=== PATIENT | male | born 1975 | race Caucasian/White ===

== ENCOUNTER 2017-11-21 00:42 | Emergency (ER) | payer OTHER ==
[2017-11-21 03:48] LABS: ADD MAN DIFF? NO
[2017-11-21] MEDS: SOD CHLORIDE 0.9% 1,000 ML IV (04:06)
[2017-11-21] MEDS: INSULIN LISPRO 100 UNIT/ML VIAL SC (04:07)
[2017-11-21 04:17] LABS: BASOPHIL # 0.1 10^3/ul (0.0-0.1); BASOPHILS % 0.6 % (0.0-2.0); EOSINOPHILS # 0.1 10^3/ul (0.0-0.5); EOSINOPHILS % 0.9 % (0.0-7.0); HEMATOCRIT 40.5 % (42.0-52.0); HEMOGLOBIN 13.2 g/dl (14.0-18.0); LYMPHOCYTES # 1.2 10^3/ul (0.8-2.9); LYMPHOCYTES % 14.7 % (15.0-51.0); MEAN CORPUSCULAR HEMOGLOBIN 25.9 pg (29.0-33.0); MEAN CORPUSCULAR HGB CONC 32.6 g/dl (32.0-37.0); MEAN CORPUSCULAR VOLUME 79.6 fl (82.0-101.0); MEAN PLATELET VOLUME 9.4 fl (7.4-10.4); MONOCYTE # 0.8 10^3/ul (0.3-0.9); NEUTROPHIL # 5.9 10^3/ul (1.6-7.5); NEUTROPHILS % 73.4 % (39.0-77.0); PLATELET COUNT 273 10^3/UL (140-415); RED BLOOD COUNT 5.09 10^6/ul (4.70-6.10)
[2017-11-21 04:19] LABS: LACTIC ACID 1.1 mmol/L (0.5-2.0)
[2017-11-21 04:20] LABS: ALANINE AMINOTRANSFERASE 28 IU/L (13-69); ALBUMIN 3.6 g/dl (3.3-4.9); ALBUMIN/GLOBULIN RATIO 1.12; ALKALINE PHOSPHATASE 124 IU/L (42-121); ANION GAP 14 (8-16); ASPARTATE AMINO TRANSFERASE 14 IU/L (15-46); BILIRUBIN,INDIRECT 0.3 mg/dl (0-1.1); BILIRUBIN,TOTAL 0.3 mg/dl (0.2-1.3); BLOOD UREA NITROGEN 18 mg/dl (7-20); CALCIUM 8.8 mg/dl (8.4-10.2); CARBON DIOXIDE 27 mmol/L (21-31); CHLORIDE 101 mmol/L (97-110); CREATININE 0.84 mg/dl (0.61-1.24); GLUCOSE 208 mg/dl (70-220); POTASSIUM 4.4 mmol/L (3.5-5.1); SODIUM 138 mmol/L (135-144); TOTAL PROTEIN 6.8 g/dl (6.1-8.1)
[2017-11-21 06:27] LABS: LACTIC ACID 0.6 mmol/L (0.5-2.0)
== END 2017-11-21 05:49 | disposition home or self-care (01) ==
LOC: E/R 05:49
DX: E11.65 Type 2 diabetes mellitus with hyperglycemia (principal); Z79.4 Long term (current) use of insulin
CPT/HCPCS: 36415; 80053; 82962; 83605; 85025; 99284-25

== ENCOUNTER 2017-11-22 16:00 | Inpatient (IN) | payer OTHER ==
[2017-11-22] MEDS ORDERED: DIPHENHYDRAMINE 50 MG INJ IV ×2 (17:30)
[2017-11-22] MEDS ORDERED: VANCOMYCIN IV PER PHARMACY XX ×2 (17:30)
[2017-11-22] MEDS ORDERED: HYDROCODONE/APAP (5/325) TAB PO ×4 (17:30)
[2017-11-22] MEDS ORDERED: IBUPROFEN 600 MG TAB PO ×2 (17:30)
[2017-11-22] MEDS ORDERED: INSULIN ASPART [NOVOLOG] 3 ML PEN SC ×2 (17:30)
[2017-11-22] MEDS ORDERED: ACCU-CHEK XX ×4 (17:30)
[2017-11-22] MEDS ORDERED: CIPROFLOXACIN 500 MG TAB PO ×2 (18:00)
[2017-11-22] MEDS ORDERED: CLINDAMYCIN 900 MG/D5W (PMX) 50 ML IVPB ×2 (18:00)
[2017-11-22] MEDS ORDERED: GLUCOSE GEL 15 GRAM TUBE PO ×4 (18:30)
[2017-11-22] MEDS ORDERED: GLUCAGON 1 MG INJ IM ×2 (18:30)
[2017-11-22] MEDS ORDERED: GLUCOSE GEL 15 GRAM TUBE BUCCAL ×2 (18:30)
[2017-11-22] MEDS ORDERED: DEXTROSE 50% 50 ML SYRINGE IV ×2 (18:30)
[2017-11-27] MEDS: Insulin NOVOLOG SS MILD Algorithm (SS with meals and bedtime) SC ×2 (07:00)
[2017-11-27] MEDS: COLLAGENASE 30 GM TUBE TOP ×2 (09:00)
[2017-11-27] MEDS: FAMOTIDINE 20 MG TAB PO ×2 (09:00)
[2017-11-28] MEDS: INSULIN GLARGINE [LANtus] 3 ML PEN SC ×4 (22:00→23:48)
[2017-11-28] MEDS: DEXTROSE 50% 50 ML SYRINGE IV ×2 (22:30)
[2017-11-28] MEDS: ACCUCHECK AT 2AM (Patients on SS coverage) XX ×4 (22:36→23:49)
[2017-11-28] MEDS: ONDANSETRON 4 MG INJ IV ×2 (22:38)
[2017-11-28] MEDS: SODIUM HYPOCHLORITE 0.125% 473 ML BTL IRR ×2 (23:47)
[2017-11-28] MEDS: DEXTROSE 5%-0.45% NACL 1,000 ML IV ×2 (23:51)
[2017-11-29] MEDS: ACCUCHECK AT 2AM (Patients on SS coverage) XX ×2 (02:00)
[2017-11-29 06:40] LABS: ADD MAN DIFF? NO
[2017-11-29 06:50] LABS: BASOPHIL # 0.1 10^3/ul (0.0-0.1); BASOPHILS % 0.6 % (0.0-2.0); EOSINOPHILS # 0.2 10^3/ul (0.0-0.5); EOSINOPHILS % 2.3 % (0.0-7.0); HEMATOCRIT 33.8 % (42.0-52.0); HEMOGLOBIN 10.9 g/dl (14.0-18.0); LYMPHOCYTES % 21.4 % (15.0-51.0); MEAN CORPUSCULAR HEMOGLOBIN 26.3 pg (29.0-33.0); MEAN CORPUSCULAR HGB CONC 32.2 g/dl (32.0-37.0); MEAN CORPUSCULAR VOLUME 81.4 fl (82.0-101.0); MEAN PLATELET VOLUME 8.7 fl (7.4-10.4); MONOCYTE # 0.6 10^3/ul (0.3-0.9); MONOCYTES % 6.5 % (0.0-11.0); NEUTROPHIL # 6.5 10^3/ul (1.6-7.5); NEUTROPHILS % 68.8 % (39.0-77.0); PLATELET COUNT 389 10^3/UL (140-415); RED BLOOD COUNT 4.15 10^6/ul (4.70-6.10); RED CELL DISTRIBUTION WIDTH 15.8 % (11.5-14.5)
[2017-11-29 06:50] LABS: WHITE BLOOD COUNT 9.4 10^3/ul (4.8-10.8)
[2017-11-29 07:22] LABS: ALANINE AMINOTRANSFERASE 34 IU/L (13-69); ALBUMIN 3.3 g/dl (3.3-4.9); ALBUMIN/GLOBULIN RATIO 1.03; ALKALINE PHOSPHATASE 100 IU/L (42-121); ANION GAP 12 (8-16); ASPARTATE AMINO TRANSFERASE 24 IU/L (15-46); BILIRUBIN,INDIRECT 0.1 mg/dl (0-1.1); BILIRUBIN,TOTAL 0.1 mg/dl (0.2-1.3); BLOOD UREA NITROGEN 12 mg/dl (7-20); CALCIUM 8.5 mg/dl (8.4-10.2); CARBON DIOXIDE 26 mmol/L (21-31); CHLORIDE 107 mmol/L (97-110); CREATININE 0.82 mg/dl (0.61-1.24); GLUCOSE 67 mg/dl (70-220); POTASSIUM 3.6 mmol/L (3.5-5.1); SODIUM 141 mmol/L (135-144); TOTAL PROTEIN 6.5 g/dl (6.1-8.1)
== END 2017-11-22 18:31 | disposition left against medical advice (07) | DRG 639 ==
LOC: SDS 18:31 → PP2 11-28 22:05 → REC 11-28 22:05 → SDS 16:00 → REC 18:31 → SDS 17:31 → REC 17:39
PROVIDERS: Podiatrist Foot & Ankle Surgery
DX: E11.621 Type 2 diabetes mellitus with foot ulcer (principal); E11.40 Type 2 diabetes mellitus with diabetic neuropathy, unspecified; E11.65 Type 2 diabetes mellitus with hyperglycemia; Z53.09 Procedure and treatment not carried out because of other contraindication
CPT/HCPCS: 80053; 82962; 85025; 87081

== ENCOUNTER 2017-11-28 16:42 | Inpatient (IN) | payer OTHER ==
[2017-11-28] MEDS: DEXTROSE 50% 50 ML SYRINGE IV (17:27)
[2017-11-28] MEDS ORDERED: EPHEDrine SULFATE 50 MG/5 ML SYG (19:00)
[2017-11-28] MEDS ORDERED: hydrALAzine 20 MG INJ IV (19:30)
[2017-11-28] MEDS ORDERED: HYDROmorphONE (0.2 MG/ML) 10ML SYG IV ×3 (19:30)
[2017-11-28] MEDS ORDERED: LABETALOL HCL 20MG INJ IV (19:30)
[2017-11-28] MEDS ORDERED: ONDANSETRON 4 MG INJ IV (19:30)
[2017-11-28] MEDS ORDERED: FENTAnyl 50 MCG/ML VIAL IV ×3 (19:30)
[2017-11-28] MEDS ORDERED: MEPERIDINE 25 MG INJ IV (19:30)
[2017-11-28] MEDS ORDERED: MIDAZOLAM 1 MG/ML 2 ML INJ IV (19:30)
[2017-11-28] MEDS ORDERED: METOCLOPRAMIDE 10 MG INJ IV (19:30)
[2017-11-28] MEDS ORDERED: EPHEDrine SULFATE 50 MG/5 ML SYG IV (19:30)
[2017-11-28] MEDS ORDERED: OXYCODONE/ACETAMINOPHEN (5/325) TAB PO ×2 (19:30)
[2017-11-28] MEDS ORDERED: DIPHENHYDRAMINE 50 MG INJ IV (19:30)
[2017-11-28] MEDS ORDERED: PROPOFOL 20 ML (19:41)
[2017-11-28] MEDS ORDERED: LIDOCAINE 2% (SDV) 5 ML INJ (19:41)
[2017-11-28] MEDS ORDERED: MIDAZOLAM 1 MG/ML 2 ML INJ (19:42)
[2017-11-28] MEDS ORDERED: FENTAnyl 50 MCG/ML VIAL (19:42)
[2017-11-28] MEDS ORDERED: CLINDAMYCIN 900 MG/D5W (PMX) 50 ML IVPB (19:50)
[2017-11-28] MEDS: VANCOMYCIN 1 GM INJ (20:08)
[2017-11-28] MEDS ORDERED: IBUPROFEN 600 MG TAB PO (21:30)
[2017-11-28] MEDS ORDERED: KETOROLAC 30 MG INJ IV (21:30)
[2017-11-28] MEDS ORDERED: DEXTROSE 50% 50 ML SYRINGE IV ×2 (22:00)
[2017-11-28] MEDS ORDERED: GLUCOSE GEL 15 GRAM TUBE PO ×2 (22:00)
[2017-11-28] MEDS ORDERED: GLUCOSE GEL 15 GRAM TUBE BUCCAL (22:00)
[2017-11-28] MEDS ORDERED: GLUCAGON 1 MG INJ IM (22:00)
[2017-11-29] MEDS: CLINDAMYCIN 600 MG/D5W (PMX) 50 ML IVPB ×2 (06:49)
[2017-11-29] MEDS: INSULIN ASPART [NOVOLOG] 3 ML PEN SC ×4 (08:00→20:15)
[2017-11-29] MEDS: FAMOTIDINE 20 MG TAB PO (09:19)
[2017-11-29] MEDS: morphine 2 MG INJ IV ×2 (09:19→20:11)
[2017-11-29] MEDS: ONDANSETRON 4 MG INJ IV (09:20)
[2017-11-29] MEDS ORDERED: NACL 0.9% 3 ML SYG IV (09:30)
[2017-11-29] MEDS ORDERED: VANCOMYCIN IV PER PHARMACY XX (10:00)
[2017-11-29] MEDS ORDERED: ACETAMINOPHEN 325 MG TAB PO (10:00)
[2017-11-29] MEDS: CEFTRIAXONE 1 GM/50 ML (PMX) 50 ML IVPB (11:54)
[2017-11-29] MEDS: VANCOMYCIN 2 GM in SOD CHLORIDE 0.9% 500 ML IVPB (12:25)
[2017-11-29] MEDS: DIPHENHYDRAMINE 50 MG INJ IV (15:16)
[2017-11-29] MEDS: DEXTROSE 5%-0.45% NACL 1,000 ML IV ×2 (18:13→20:18)
[2017-11-29] MEDS ORDERED: VANCOMYCIN 1.25 GM in SOD CHLORIDE 0.45% 250 ML IVPB (19:00)
[2017-11-29] MEDS: INSULIN GLARGINE [LANtus] 3 ML PEN SC (20:14)
[2017-11-29] MEDS: HEPARIN 5,000 UNIT/0.5 ML VIAL SC (20:16)
[2017-11-30] MEDS: VANCOMYCIN 750 MG in DEXTROSE 5% 150 ML IVPB ×2 (01:33→12:18)
[2017-11-30] MEDS: morphine 2 MG INJ IV ×2 (02:40→12:18)
[2017-11-30] MEDS: PANTOPRAZOLE (EC) 40 MG TAB PO (05:24)
[2017-11-30 06:31] LABS: ADD MAN DIFF? NO
[2017-11-30 06:35] LABS: WHITE BLOOD COUNT 6.7 10^3/ul (4.8-10.8)
[2017-11-30 06:35] LABS: BASOPHIL # 0.1 10^3/ul (0.0-0.1); BASOPHILS % 0.9 % (0.0-2.0); EOSINOPHILS # 0.3 10^3/ul (0.0-0.5); EOSINOPHILS % 4.2 % (0.0-7.0); HEMATOCRIT 36.8 % (42.0-52.0); HEMOGLOBIN 11.8 g/dl (14.0-18.0); LYMPHOCYTES # 1.8 10^3/ul (0.8-2.9); LYMPHOCYTES % 26.2 % (15.0-51.0); MEAN CORPUSCULAR HGB CONC 32.1 g/dl (32.0-37.0); MEAN CORPUSCULAR VOLUME 81.2 fl (82.0-101.0); MONOCYTE # 0.5 10^3/ul (0.3-0.9); MONOCYTES % 7.8 % (0.0-11.0); NEUTROPHIL # 4.1 10^3/ul (1.6-7.5); NEUTROPHILS % 60.5 % (39.0-77.0); PLATELET COUNT 377 10^3/UL (140-415); RED BLOOD COUNT 4.53 10^6/ul (4.70-6.10); RED CELL DISTRIBUTION WIDTH 15.7 % (11.5-14.5)
[2017-11-30 06:53] LABS: HEMOGLOBIN A1C 9.6 % (0-5.9)
[2017-11-30 07:29] LABS: ALANINE AMINOTRANSFERASE 30 IU/L (13-69); ALBUMIN 3.5 g/dl (3.3-4.9); ALBUMIN/GLOBULIN RATIO 0.94; ALKALINE PHOSPHATASE 110 IU/L (42-121); ANION GAP 12 (8-16); ASPARTATE AMINO TRANSFERASE 21 IU/L (15-46); BILIRUBIN,INDIRECT 0.1 mg/dl (0-1.1); BILIRUBIN,TOTAL 0.1 mg/dl (0.2-1.3); BLOOD UREA NITROGEN 15 mg/dl (7-20); CARBON DIOXIDE 29 mmol/L (21-31); CHLORIDE 98 mmol/L (97-110); CREATININE 0.88 mg/dl (0.61-1.24); GLUCOSE 274 mg/dl (70-220); MAGNESIUM 1.9 mg/dl (1.7-2.5); PHOSPHORUS 3.2 mg/dl (2.5-4.9); POTASSIUM 4.2 mmol/L (3.5-5.1); SODIUM 135 mmol/L (135-144); TOTAL PROTEIN 7.2 g/dl (6.1-8.1)
[2017-11-30] MEDS: INSULIN ASPART [NOVOLOG] 3 ML PEN SC ×4 (08:27→20:23)
[2017-11-30] MEDS: HEPARIN 5,000 UNIT/0.5 ML VIAL SC ×2 (08:29→20:20)
[2017-11-30] MEDS: CEFTRIAXONE 1 GM/50 ML (PMX) 50 ML IVPB (09:44)
[2017-11-30] MEDS: HYDROCODONE/APAP (10/325) TAB PO (20:14)
[2017-11-30] MEDS: INSULIN GLARGINE [LANtus] 3 ML PEN SC (20:19)
[2017-11-30] MEDS: morphine LIQ (10 MG/5 ML) CUP PO (22:54)
[2017-12-01 01:26] LABS: VANCOMYCIN,TROUGH 14.5 ug/ml (10.0-20.0)
[2017-12-01] MEDS: VANCOMYCIN 750 MG in DEXTROSE 5% 150 ML IVPB ×2 (01:41→13:20)
[2017-12-01] MEDS: PANTOPRAZOLE (EC) 40 MG TAB PO (05:45)
[2017-12-01] MEDS: INSULIN ASPART [NOVOLOG] 3 ML PEN SC ×5 (08:19→20:08)
[2017-12-01] MEDS: HEPARIN 5,000 UNIT/0.5 ML VIAL SC ×2 (08:21→20:07)
[2017-12-01] MEDS: CEFTRIAXONE 1 GM/50 ML (PMX) 50 ML IVPB (10:06)
[2017-12-01] MEDS: morphine LIQ (10 MG/5 ML) CUP PO ×2 (11:28→18:08)
[2017-12-01] MEDS: DIPHENHYDRAMINE 50 MG INJ IV ×2 (13:15→20:01)
[2017-12-01] MEDS: LEVOFLOXACIN 500MG/D5W (PMX) 100 ML IVPB (16:04)
[2017-12-01] MEDS: INSULIN GLARGINE [LANtus] 3 ML PEN SC (20:06)
[2017-12-01 23:20] LABS: HEPATITIS B SURFACE ANTIGEN NEGATIVE (NEGATIVE)
[2017-12-01 23:37] LABS: HEPATITIS B SURFACE ANTIBODY NEGATIVE (NEGATIVE); HEPATITIS C VIRAL ANTIBODY NEGATIVE (NEGATIVE)
[2017-12-01 23:38] LABS: HIV 1&2 ANTIBODY NEGATIVE (NEGATIVE)
[2017-12-02] MEDS: VANCOMYCIN 750 MG in DEXTROSE 5% 150 ML IVPB ×2 (01:09→12:57)
[2017-12-02] MEDS: DIPHENHYDRAMINE 50 MG INJ IV ×3 (03:50→20:09)
[2017-12-02] MEDS: PANTOPRAZOLE (EC) 40 MG TAB PO (05:52)
[2017-12-02] MEDS: INSULIN ASPART [NOVOLOG] 3 ML PEN SC ×7 (08:20→20:16)
[2017-12-02] MEDS: HEPARIN 5,000 UNIT/0.5 ML VIAL SC ×2 (08:22→20:18)
[2017-12-02] MEDS: morphine LIQ (10 MG/5 ML) CUP PO ×2 (09:02→18:32)
[2017-12-02 13:28] LABS: ADD MAN DIFF? NO
[2017-12-02 13:31] LABS: BASOPHIL # 0.1 10^3/ul (0.0-0.1); BASOPHILS % 0.7 % (0.0-2.0); EOSINOPHILS # 0.4 10^3/ul (0.0-0.5); EOSINOPHILS % 5.7 % (0.0-7.0); HEMATOCRIT 38.6 % (42.0-52.0); HEMOGLOBIN 12.4 g/dl (14.0-18.0); LYMPHOCYTES # 1.5 10^3/ul (0.8-2.9); LYMPHOCYTES % 20.1 % (15.0-51.0); MEAN CORPUSCULAR HEMOGLOBIN 25.8 pg (29.0-33.0); MEAN CORPUSCULAR HGB CONC 32.1 g/dl (32.0-37.0); MEAN CORPUSCULAR VOLUME 80.2 fl (82.0-101.0); MEAN PLATELET VOLUME 8.4 fl (7.4-10.4); MONOCYTE # 0.5 10^3/ul (0.3-0.9); MONOCYTES % 6.2 % (0.0-11.0); NEUTROPHIL # 4.9 10^3/ul (1.6-7.5); NEUTROPHILS % 67.2 % (39.0-77.0); PLATELET COUNT 468 10^3/UL (140-415); RED BLOOD COUNT 4.81 10^6/ul (4.70-6.10); RED CELL DISTRIBUTION WIDTH 14.9 % (11.5-14.5)
[2017-12-02 13:31] LABS: WHITE BLOOD COUNT 7.2 10^3/ul (4.8-10.8)
[2017-12-02 13:45] LABS: ANION GAP 11 (8-16); BLOOD UREA NITROGEN 20 mg/dl (7-20); CALCIUM 9.2 mg/dl (8.4-10.2); CARBON DIOXIDE 29 mmol/L (21-31); CHLORIDE 98 mmol/L (97-110); CREATININE 0.97 mg/dl (0.61-1.24); GLUCOSE 294 mg/dl (70-220); POTASSIUM 4.1 mmol/L (3.5-5.1); SODIUM 134 mmol/L (135-144)
[2017-12-02 13:50] LABS: MAGNESIUM 1.8 mg/dl (1.7-2.5)
[2017-12-02 13:50] LABS: PHOSPHORUS 4.2 mg/dl (2.5-4.9)
[2017-12-02] MEDS: LEVOFLOXACIN 500MG/D5W (PMX) 100 ML IVPB (16:11)
[2017-12-02] MEDS: INSULIN GLARGINE [LANtus] 3 ML PEN SC (20:18)
[2017-12-03] MEDS: VANCOMYCIN 750 MG in DEXTROSE 5% 150 ML IVPB ×2 (01:02→17:05)
[2017-12-03] MEDS: morphine LIQ (10 MG/5 ML) CUP PO ×2 (04:25→08:41)
[2017-12-03] MEDS: PANTOPRAZOLE (EC) 40 MG TAB PO (05:36)
[2017-12-03] MEDS: DIPHENHYDRAMINE 50 MG INJ IV ×2 (05:36→21:43)
[2017-12-03] MEDS: INSULIN ASPART [NOVOLOG] 3 ML PEN SC ×7 (08:39→21:00)
[2017-12-03] MEDS: HEPARIN 5,000 UNIT/0.5 ML VIAL SC ×2 (08:41→21:30)
[2017-12-03] MEDS: LEVOFLOXACIN 500MG/D5W (PMX) 100 ML IVPB (14:34)
[2017-12-03] MEDS: INSULIN GLARGINE [LANtus] 3 ML PEN SC (21:30)
[2017-12-04] MEDS: morphine LIQ (10 MG/5 ML) CUP PO ×2 (02:20→08:24)
[2017-12-04] MEDS: VANCOMYCIN 750 MG in DEXTROSE 5% 150 ML IVPB ×2 (05:02→16:20)
[2017-12-04] MEDS: PANTOPRAZOLE (EC) 40 MG TAB PO (05:02)
[2017-12-04] MEDS: INSULIN ASPART [NOVOLOG] 3 ML PEN SC ×6 (08:25→17:16)
[2017-12-04] MEDS: HEPARIN 5,000 UNIT/0.5 ML VIAL SC (08:29)
[2017-12-04] MEDS: DIPHENHYDRAMINE 50 MG INJ IV (10:12)
[2017-12-04] MEDS: LEVOFLOXACIN 500MG/D5W (PMX) 100 ML IVPB (15:10)
[2017-12-04] MEDS ORDERED: INSULIN GLARGINE [LANtus] 3 ML PEN SC (20:00)
== END 2017-12-04 18:12 | disposition home health service (06) | DRG 629 ==
LOC: SDS 16:42 → REC 11-29 09:08 → PP2 11-29 09:08
PROVIDERS: Podiatrist Foot & Ankle Surgery
PROC: 0QBL0ZZ Excision of Right Tarsal, Open Approach (ICD-10-PCS; principal; 2017-11-28 19:23)
PROC: 0HRMXK3 Replacement of Right Foot Skin with Nonautologous Tissue Substitute, Full Thickness, External Approach (ICD-10-PCS; 2017-11-28 19:23)
PROC: 0HRKXK3 Replacement of Right Lower Leg Skin with Nonautologous Tissue Substitute, Full Thickness, External Approach (ICD-10-PCS; 2017-11-28 19:23)
PROC: 0KXV0ZZ Transfer Right Foot Muscle, Open Approach (ICD-10-PCS; 2017-11-28 19:23)
PROC: 0Y9 Anatomical Regions, Lower Extremities, Drainage (ICD-10-PCS; 2017-11-28 19:23)
DX: E11.621 Type 2 diabetes mellitus with foot ulcer (principal); L97.419 Non-pressure chronic ulcer of right heel and midfoot with unspecified severity; M86.671 Other chronic osteomyelitis, right ankle and foot; E11.42 Type 2 diabetes mellitus with diabetic polyneuropathy; L97.219 Non-pressure chronic ulcer of right calf with unspecified severity; E11.69 Type 2 diabetes mellitus with other specified complication; E11.65 Type 2 diabetes mellitus with hyperglycemia; E11.622 Type 2 diabetes mellitus with other skin ulcer; D64.9 Anemia, unspecified; F17.210 Nicotine dependence, cigarettes, uncomplicated; B95.2 Enterococcus as the cause of diseases classified elsewhere; B96.89 Other specified bacterial agents as the cause of diseases classified elsewhere; Z79.4 Long term (current) use of insulin
CPT/HCPCS: 80048; 80053; 80202; 82962; 83036; 83735; 84100; 84443; 85025; 86703; 86706; 86803; 87070; 87340

== ENCOUNTER 2018-04-19 19:45 | Inpatient (IN) | payer OTHER ==
[2018-04-19] MEDS: KETOROLAC 30 MG INJ IV (20:58)
[2018-04-19] MEDS: SODIUM CHLORIDE 0.9% 1L BAG IV* (20:58)
[2018-04-19] MEDS: VANCOMYCIN 1 GM (PMX) 250 ML IVPB (20:59)
[2018-04-19] MEDS: DIPHENHYDRAMINE 50 MG INJ IM (20:59)
[2018-04-19 21:18] LABS: ADD MAN DIFF? NO
[2018-04-19 21:22] LABS: WHITE BLOOD COUNT 6.1 10^3/ul (4.8-10.8)
[2018-04-19 21:22] LABS: BASOPHIL # 0.1 10^3/ul (0.0-0.1); EOSINOPHILS # 0.2 10^3/ul (0.0-0.5); EOSINOPHILS % 3.5 % (0.0-7.0); HEMATOCRIT 32.6 % (42.0-52.0); HEMOGLOBIN 10.4 g/dl (14.0-18.0); LYMPHOCYTES # 1.9 10^3/ul (0.8-2.9); MEAN CORPUSCULAR HEMOGLOBIN 25.9 pg (29.0-33.0); MEAN CORPUSCULAR HGB CONC 31.9 g/dl (32.0-37.0); MEAN CORPUSCULAR VOLUME 81.3 fl (82.0-101.0); MEAN PLATELET VOLUME 8.8 fl (7.4-10.4); MONOCYTE # 0.5 10^3/ul (0.3-0.9); MONOCYTES % 8.2 % (0.0-11.0); NEUTROPHIL # 3.4 10^3/ul (1.6-7.5); PLATELET COUNT 504 10^3/UL (140-415); RED BLOOD COUNT 4.01 10^6/ul (4.70-6.10); RED CELL DISTRIBUTION WIDTH 13.9 % (11.5-14.5)
[2018-04-19] MEDS: morphine 10 MG INJ IV (21:37)
[2018-04-19 21:42] LABS: INR 1.06; PROTIME 13.9 Sec (11.9-14.9); PT RATIO 1.1
[2018-04-19 21:43] LABS: PARTIAL THROMBOPLASTIN TIME 41.3 Sec (25.0-35.0)
[2018-04-19 21:44] LABS: ALANINE AMINOTRANSFERASE 21 IU/L (13-69); ALBUMIN 3.5 g/dl (3.3-4.9); ALBUMIN/GLOBULIN RATIO 0.89; ALKALINE PHOSPHATASE 129 IU/L (42-121); ANION GAP 13 (8-16); ASPARTATE AMINO TRANSFERASE 24 IU/L (15-46); BILIRUBIN,INDIRECT 0.4 mg/dl (0-1.1); BILIRUBIN,TOTAL 0.4 mg/dl (0.2-1.3); BLOOD UREA NITROGEN 19 mg/dl (7-20); CALCIUM 8.6 mg/dl (8.4-10.2); CARBON DIOXIDE 27 mmol/L (21-31); CHLORIDE 98 mmol/L (97-110); CREATININE 0.84 mg/dl (0.61-1.24); POTASSIUM 4.2 mmol/L (3.5-5.1); SODIUM 134 mmol/L (135-144); TOTAL PROTEIN 7.4 g/dl (6.1-8.1)
[2018-04-19 21:46] LABS: GLUCOSE 426 mg/dl (70-220)
[2018-04-19 21:50] LABS: LACTIC ACID 1.7 mmol/L (0.5-2.0)
[2018-04-19] MEDS ORDERED: ACETAMINOPHEN 325 MG TAB PO (22:00)
[2018-04-19] MEDS ORDERED: ONDANSETRON 4 MG INJ IV (22:00)
[2018-04-19] MEDS ORDERED: ZOLPIDEM 5 MG TAB PO (22:00)
[2018-04-19] MEDS ORDERED: NACL 0.9% 3 ML SYG IV (22:00)
[2018-04-19] MEDS ORDERED: MAGNESIUM HYDROXIDE 30ML CUP PO (22:00)
[2018-04-19] MEDS ORDERED: GLUCAGON 1 MG INJ IM (22:30)
[2018-04-19] MEDS ORDERED: GLUCOSE GEL 15 GRAM TUBE PO (22:30)
[2018-04-19] MEDS ORDERED: DEXTROSE 50% 50 ML SYRINGE IV (22:30)
[2018-04-19] MEDS ORDERED: GLUCOSE GEL 15 GRAM TUBE BUCCAL (22:30)
[2018-04-19] MEDS: CLINDAMYCIN 900 MG/D5W (PMX) 50 ML IVPB (22:53)
[2018-04-20] MEDS: ACCU-CHEK XX (02:00)
[2018-04-20 05:07] LABS: ADD MAN DIFF? NO
[2018-04-20 05:09] LABS: BASOPHIL # 0.1 10^3/ul (0.0-0.1); BASOPHILS % 1.3 % (0.0-2.0); EOSINOPHILS # 0.3 10^3/ul (0.0-0.5); EOSINOPHILS % 4.8 % (0.0-7.0); HEMATOCRIT 32.5 % (42.0-52.0); HEMOGLOBIN 10.5 g/dl (14.0-18.0); LYMPHOCYTES # 1.9 10^3/ul (0.8-2.9); LYMPHOCYTES % 35.1 % (15.0-51.0); MEAN CORPUSCULAR HEMOGLOBIN 26.6 pg (29.0-33.0); MEAN CORPUSCULAR HGB CONC 32.3 g/dl (32.0-37.0); MEAN CORPUSCULAR VOLUME 82.3 fl (82.0-101.0); MEAN PLATELET VOLUME 8.4 fl (7.4-10.4); MONOCYTE # 0.4 10^3/ul (0.3-0.9); NEUTROPHIL # 2.7 10^3/ul (1.6-7.5); NEUTROPHILS % 50.4 % (39.0-77.0); PLATELET COUNT 472 10^3/UL (140-415); RED BLOOD COUNT 3.95 10^6/ul (4.70-6.10); RED CELL DISTRIBUTION WIDTH 13.7 % (11.5-14.5)
[2018-04-20 05:09] LABS: WHITE BLOOD COUNT 5.4 10^3/ul (4.8-10.8)
[2018-04-20 05:19] LABS: HEMOGLOBIN A1C 11.8 % (0-5.9)
[2018-04-20] MEDS: PANTOPRAZOLE (EC) 40 MG TAB PO (05:34)
[2018-04-20] MEDS: morphine 2 MG INJ IV ×2 (05:35→11:54)
[2018-04-20 05:48] LABS: ALANINE AMINOTRANSFERASE 18 IU/L (13-69); ALBUMIN 2.8 g/dl (3.3-4.9); ALKALINE PHOSPHATASE 113 IU/L (42-121); ANION GAP 9 (8-16); ASPARTATE AMINO TRANSFERASE 20 IU/L (15-46); BILIRUBIN,INDIRECT 0.4 mg/dl (0-1.1); BILIRUBIN,TOTAL 0.4 mg/dl (0.2-1.3); BLOOD UREA NITROGEN 14 mg/dl (7-20); CALCIUM 8.2 mg/dl (8.4-10.2); CARBON DIOXIDE 28 mmol/L (21-31); CHLORIDE 105 mmol/L (97-110); CREATININE 0.67 mg/dl (0.61-1.24); GLUCOSE 219 mg/dl (70-220); SODIUM 138 mmol/L (135-144); TOTAL PROTEIN 6.3 g/dl (6.1-8.1)
[2018-04-20] MEDS: INSULIN GLARGINE [LANtus] 3 ML PEN SC (08:28)
[2018-04-20] MEDS: INSULIN ASPART [NOVOLOG] 3 ML PEN SC ×7 (08:28→21:00)
[2018-04-20] MEDS: ENOXAPARIN 40 MG/0.4 ML SYG SC (08:32)
[2018-04-20] MEDS ORDERED: VANCOMYCIN IV PER PHARMACY XX (14:30)
[2018-04-20] MEDS ORDERED: VANCOMYCIN 1.5 GM in SOD CHLORIDE 0.9% 250 ML IVPB (16:30)
[2018-04-20] MEDS: ERTAPENEM SODIUM 1 GM in SOD CHLORIDE 0.9% 100 ML IVPB (16:38)
[2018-04-20] MEDS: VANCOMYCIN 1 GM 250 ML IVPB (17:44)
[2018-04-20] MEDS: SODIUM HYPOCHLORITE 1/40% 1L IRRIG IRR (21:00)
[2018-04-20] MEDS: morphine LIQ (10 MG/5 ML) CUP PO (21:21)
[2018-04-20 23:44] LABS: ERYTHROCYTE SEDIMENTATION RATE 58 mm/Hr (0-15)
[2018-04-21] MEDS: ACCU-CHEK XX (02:37)
[2018-04-21] MEDS: morphine LIQ (10 MG/5 ML) CUP PO ×3 (04:53→20:40)
[2018-04-21] MEDS: VANCOMYCIN 1 GM 250 ML IVPB ×2 (04:54→17:33)
[2018-04-21 05:54] LABS: ADD MAN DIFF? NO
[2018-04-21 05:55] LABS: WHITE BLOOD COUNT 5.2 10^3/ul (4.8-10.8)
[2018-04-21 05:55] LABS: BASOPHIL # 0.1 10^3/ul (0.0-0.1); BASOPHILS % 1.2 % (0.0-2.0); EOSINOPHILS # 0.3 10^3/ul (0.0-0.5); EOSINOPHILS % 6.4 % (0.0-7.0); HEMATOCRIT 36.8 % (42.0-52.0); HEMOGLOBIN 11.8 g/dl (14.0-18.0); LYMPHOCYTES # 1.9 10^3/ul (0.8-2.9); LYMPHOCYTES % 37.6 % (15.0-51.0); MEAN CORPUSCULAR HGB CONC 32.1 g/dl (32.0-37.0); MEAN CORPUSCULAR VOLUME 81.2 fl (82.0-101.0); MEAN PLATELET VOLUME 8.5 fl (7.4-10.4); MONOCYTE # 0.4 10^3/ul (0.3-0.9); MONOCYTES % 7.9 % (0.0-11.0); NEUTROPHIL # 2.4 10^3/ul (1.6-7.5); NEUTROPHILS % 46.5 % (39.0-77.0); PLATELET COUNT 525 10^3/UL (140-415); RED BLOOD COUNT 4.53 10^6/ul (4.70-6.10); RED CELL DISTRIBUTION WIDTH 13.6 % (11.5-14.5)
[2018-04-21 06:16] LABS: IRON 56 ug/dl (35-150)
[2018-04-21] MEDS: PANTOPRAZOLE (EC) 40 MG TAB PO (06:16)
[2018-04-21 06:17] LABS: MAGNESIUM 1.9 mg/dl (1.7-2.5)
[2018-04-21 06:17] LABS: PHOSPHORUS 3.8 mg/dl (2.5-4.9)
[2018-04-21 06:25] LABS: % IRON SATURATION 24 % SAT (22-52); TOTAL IRON BINDING CAPACITY 237 ug/dl (241-421)
[2018-04-21 06:31] LABS: ANION GAP 10 (8-16); BLOOD UREA NITROGEN 12 mg/dl (7-20); C-REACTIVE PROTEIN 2.4 mg/dl (0.0-0.9); CALCIUM 8.6 mg/dl (8.4-10.2); CARBON DIOXIDE 31 mmol/L (21-31); CHLORIDE 102 mmol/L (97-110); CREATININE 0.77 mg/dl (0.61-1.24); GLUCOSE 223 mg/dl (70-220); SODIUM 139 mmol/L (135-144)
[2018-04-21 07:34] LABS: ERYTHROCYTE SEDIMENTATION RATE 63 mm/Hr (0-15)
[2018-04-21] MEDS: INSULIN GLARGINE [LANtus] 3 ML PEN SC (07:54)
[2018-04-21] MEDS: INSULIN ASPART [NOVOLOG] 3 ML PEN SC ×7 (07:55→20:45)
[2018-04-21] MEDS ORDERED: INSULIN GLARGINE [LANtus] 3 ML PEN SC (08:00)
[2018-04-21] MEDS: DOCUSATE SODIUM 100 MG CAP PO (08:12)
[2018-04-21] MEDS: SILVER SULFADIAZINE 1% 25 GM CR TOP ×2 (08:12→20:44)
[2018-04-21] MEDS: ASCORBIC ACID 500 MG TAB PO ×2 (08:12→20:40)
[2018-04-21] MEDS: TERBINAFINE 250 MG TAB PO (08:12)
[2018-04-21] MEDS: SODIUM HYPOCHLORITE 1/40% 1L IRRIG IRR ×2 (08:12→20:44)
[2018-04-21] MEDS: ZINC SULFATE 220 MG CAP PO (08:12)
[2018-04-21] MEDS: ENOXAPARIN 40 MG/0.4 ML SYG SC (08:15)
[2018-04-21] MEDS: ERTAPENEM SODIUM 1 GM in SOD CHLORIDE 0.9% 100 ML IVPB (16:37)
[2018-04-21] MEDS: DIPHENHYDRAMINE 25 MG CAP PO (17:30)
[2018-04-22] MEDS: ACCU-CHEK XX (02:00)
[2018-04-22 05:01] LABS: VANCOMYCIN,TROUGH 11.8 ug/ml (10.0-20.0)
[2018-04-22] MEDS: PANTOPRAZOLE (EC) 40 MG TAB PO (06:13)
[2018-04-22] MEDS: VANCOMYCIN 1 GM 250 ML IVPB (06:13)
[2018-04-22] MEDS: morphine LIQ (10 MG/5 ML) CUP PO ×2 (06:17→18:12)
[2018-04-22] MEDS: SODIUM HYPOCHLORITE 1/40% 1L IRRIG IRR ×2 (09:32→20:35)
[2018-04-22] MEDS: HYDROCODONE/APAP (5/325) TAB PO (09:33)
[2018-04-22] MEDS: ASCORBIC ACID 500 MG TAB PO ×2 (09:33→20:35)
[2018-04-22] MEDS: ZINC SULFATE 220 MG CAP PO (09:33)
[2018-04-22] MEDS: TERBINAFINE 250 MG TAB PO (09:37)
[2018-04-22] MEDS: ENOXAPARIN 40 MG/0.4 ML SYG SC (09:45)
[2018-04-22] MEDS: INSULIN GLARGINE [LANtus] 3 ML PEN SC (09:45)
[2018-04-22] MEDS: INSULIN ASPART [NOVOLOG] 3 ML PEN SC ×7 (09:46→20:41)
[2018-04-22] MEDS: SILVER SULFADIAZINE 1% 25 GM CR TOP ×2 (12:23→20:35)
[2018-04-22] MEDS: GLUCOSE GEL 15 GRAM TUBE PO (14:21)
[2018-04-22] MEDS: DEXTROSE 50% 50 ML SYRINGE IV (14:31)
[2018-04-22] MEDS: ERTAPENEM SODIUM 1 GM in SOD CHLORIDE 0.9% 100 ML IVPB (17:07)
[2018-04-22] MEDS: VANCOMYCIN 1.25 GM in SOD CHLORIDE 0.9% 250 ML IVPB (17:58)
[2018-04-23] MEDS: ACCU-CHEK XX (02:00)
[2018-04-23] MEDS: morphine LIQ (10 MG/5 ML) CUP PO ×2 (04:01→19:33)
[2018-04-23] MEDS: PANTOPRAZOLE (EC) 40 MG TAB PO (05:27)
[2018-04-23] MEDS: VANCOMYCIN 1.25 GM in SOD CHLORIDE 0.9% 250 ML IVPB ×2 (05:27→17:43)
[2018-04-23 06:09] LABS: ADD MAN DIFF? NO
[2018-04-23 06:25] LABS: BASOPHIL # 0.1 10^3/ul (0.0-0.1); BASOPHILS % 1.1 % (0.0-2.0); EOSINOPHILS # 0.3 10^3/ul (0.0-0.5); EOSINOPHILS % 5.4 % (0.0-7.0); HEMATOCRIT 38.9 % (42.0-52.0); HEMOGLOBIN 12.5 g/dl (14.0-18.0); LYMPHOCYTES # 1.9 10^3/ul (0.8-2.9); LYMPHOCYTES % 34.4 % (15.0-51.0); MEAN CORPUSCULAR HEMOGLOBIN 26.3 pg (29.0-33.0); MEAN CORPUSCULAR HGB CONC 32.1 g/dl (32.0-37.0); MEAN CORPUSCULAR VOLUME 81.9 fl (82.0-101.0); MEAN PLATELET VOLUME 8.7 fl (7.4-10.4); MONOCYTE # 0.4 10^3/ul (0.3-0.9); MONOCYTES % 6.7 % (0.0-11.0); NEUTROPHIL # 2.9 10^3/ul (1.6-7.5); NEUTROPHILS % 51.5 % (39.0-77.0); PLATELET COUNT 497 10^3/UL (140-415); RED BLOOD COUNT 4.75 10^6/ul (4.70-6.10); RED CELL DISTRIBUTION WIDTH 13.9 % (11.5-14.5)
[2018-04-23 06:25] LABS: WHITE BLOOD COUNT 5.5 10^3/ul (4.8-10.8)
[2018-04-23 06:59] LABS: MAGNESIUM 1.9 mg/dl (1.7-2.5)
[2018-04-23 07:19] LABS: ANION GAP 10 (8-16); BLOOD UREA NITROGEN 17 mg/dl (7-20); CALCIUM 8.9 mg/dl (8.4-10.2); CARBON DIOXIDE 28 mmol/L (21-31); CHLORIDE 102 mmol/L (97-110); CREATININE 0.74 mg/dl (0.61-1.24); GLUCOSE 324 mg/dl (70-220); POTASSIUM 4.4 mmol/L (3.5-5.1); SODIUM 136 mmol/L (135-144)
[2018-04-23] MEDS: INSULIN GLARGINE [LANtus] 3 ML PEN SC (08:00)
[2018-04-23] MEDS: INSULIN ASPART [NOVOLOG] 3 ML PEN SC ×6 (08:00→20:44)
[2018-04-23] MEDS: ZINC SULFATE 220 MG CAP PO (08:06)
[2018-04-23] MEDS: TERBINAFINE 250 MG TAB PO (08:06)
[2018-04-23] MEDS: SODIUM HYPOCHLORITE 1/40% 1L IRRIG IRR ×2 (08:07→20:46)
[2018-04-23] MEDS: ASCORBIC ACID 500 MG TAB PO ×2 (08:07→20:44)
[2018-04-23] MEDS: SILVER SULFADIAZINE 1% 25 GM CR TOP ×2 (08:07→20:45)
[2018-04-23] MEDS: ENOXAPARIN 40 MG/0.4 ML SYG SC (08:10)
[2018-04-23] MEDS: ERTAPENEM SODIUM 1 GM in SOD CHLORIDE 0.9% 100 ML IVPB (17:01)
[2018-04-24] MEDS: ACCU-CHEK XX (02:00)
[2018-04-24] MEDS: VANCOMYCIN 1.25 GM in SOD CHLORIDE 0.9% 250 ML IVPB ×2 (04:24→20:28)
[2018-04-24] MEDS: PANTOPRAZOLE (EC) 40 MG TAB PO (05:44)
[2018-04-24] MEDS: INSULIN ASPART [NOVOLOG] 3 ML PEN SC ×7 (08:15→20:41)
[2018-04-24] MEDS: morphine LIQ (10 MG/5 ML) CUP PO (08:29)
[2018-04-24] MEDS: INSULIN GLARGINE [LANtus] 3 ML PEN SC (08:37)
[2018-04-24] MEDS: TERBINAFINE 250 MG TAB PO (09:00)
[2018-04-24] MEDS: ZINC SULFATE 220 MG CAP PO (09:00)
[2018-04-24] MEDS: SILVER SULFADIAZINE 1% 25 GM CR TOP ×2 (09:00→20:42)
[2018-04-24] MEDS: ASCORBIC ACID 500 MG TAB PO ×2 (09:00→20:42)
[2018-04-24] MEDS: SODIUM HYPOCHLORITE 1/40% 1L IRRIG IRR ×2 (09:00→20:42)
[2018-04-24] MEDS: ENOXAPARIN 40 MG/0.4 ML SYG SC (09:00)
[2018-04-24] MEDS: SOD CHLORIDE 0.9% 1,000 ML IV (09:43)
[2018-04-24 09:57] LABS: GLUCOSE 530 mg/dl (70-220)
[2018-04-24] MEDS: morphine 2 MG INJ IV (13:16)
[2018-04-24 16:59] LABS: VANCOMYCIN,TROUGH 14.3 ug/ml (10.0-20.0)
[2018-04-24] MEDS ORDERED: LIDOCAINE 2% (SDV) 5 ML INJ (17:14)
[2018-04-24] MEDS ORDERED: NEOSTIGMINE 3 MG/3 ML SYRINGE (17:14)
[2018-04-24] MEDS ORDERED: GLYCOPYRROLATE 0.4 MG INJ (17:14)
[2018-04-24] MEDS ORDERED: PROPOFOL 20 ML (17:14)
[2018-04-24] MEDS ORDERED: ROCURONIUM 50 MG INJ (17:14)
[2018-04-24] MEDS ORDERED: MIDAZOLAM 1 MG/ML 2 ML INJ (17:15)
[2018-04-24] MEDS ORDERED: FENTAnyl 50 MCG/ML VIAL (17:15)
[2018-04-24] MEDS ORDERED: ONDANSETRON 4 MG INJ (17:15)
[2018-04-24] MEDS ORDERED: DEXAMETHASONE 4 MG/ML 1 ML INJ (17:15)
[2018-04-24] MEDS: ERTAPENEM SODIUM 1 GM in SOD CHLORIDE 0.9% 100 ML IVPB (17:19)
[2018-04-24] MEDS ORDERED: GELATIN SIZE 100 SPONGE (17:38)
[2018-04-24] MEDS ORDERED: THROMBIN 5000 UNIT VIAL (17:38)
[2018-04-24] MEDS ORDERED: LIDOCAINE 1% (MPF) 30 ML INJ (17:38)
[2018-04-24] MEDS ORDERED: SUCCINYLCHOLINE CHLORIDE 100 MG/5 ML SYG IV (18:33)
[2018-04-24] MEDS: LIDOCAINE 1%/EPI 30 ML INJ (18:50)
[2018-04-24] MEDS: POLYMYXIN/BACITRACIN 1L IRRIG IRR (18:51)
[2018-04-24] MEDS: MINERAL OIL LIGHT 10 ML VIAL (18:51)
[2018-04-24] MEDS ORDERED: KETOROLAC 30 MG INJ IV (19:30)
[2018-04-24] MEDS ORDERED: DIPHENHYDRAMINE 50 MG INJ IV (19:30)
[2018-04-24] MEDS: ONDANSETRON 4 MG INJ IV (20:27)
[2018-04-24] MEDS ORDERED: FAMOTIDINE 20 MG TAB PO (21:00)
[2018-04-25] MEDS: ACCU-CHEK XX (02:03)
[2018-04-25] MEDS: morphine 2 MG INJ IV ×2 (02:10→13:58)
[2018-04-25] MEDS: INSULIN ASPART [NOVOLOG] 3 ML PEN SC ×8 (02:13→17:33)
[2018-04-25] MEDS: PANTOPRAZOLE (EC) 40 MG TAB PO (05:23)
[2018-04-25] MEDS: VANCOMYCIN 1.25 GM in SOD CHLORIDE 0.9% 250 ML IVPB ×2 (05:23→17:30)
[2018-04-25 06:17] LABS: ADD MAN DIFF? NO
[2018-04-25 06:20] LABS: WHITE BLOOD COUNT 10.1 10^3/ul (4.8-10.8)
[2018-04-25 06:20] LABS: BASOPHILS % 0.3 % (0.0-2.0); HEMATOCRIT 35.6 % (42.0-52.0); HEMOGLOBIN 11.5 g/dl (14.0-18.0); LYMPHOCYTES # 0.9 10^3/ul (0.8-2.9); LYMPHOCYTES % 9.3 % (15.0-51.0); MEAN CORPUSCULAR HEMOGLOBIN 26.4 pg (29.0-33.0); MEAN CORPUSCULAR HGB CONC 32.3 g/dl (32.0-37.0); MEAN CORPUSCULAR VOLUME 81.7 fl (82.0-101.0); MEAN PLATELET VOLUME 8.8 fl (7.4-10.4); MONOCYTE # 0.2 10^3/ul (0.3-0.9); MONOCYTES % 2.1 % (0.0-11.0); NEUTROPHIL # 8.8 10^3/ul (1.6-7.5); NEUTROPHILS % 87.9 % (39.0-77.0); PLATELET COUNT 424 10^3/UL (140-415); RED BLOOD COUNT 4.36 10^6/ul (4.70-6.10); RED CELL DISTRIBUTION WIDTH 14.1 % (11.5-14.5)
[2018-04-25 06:47] LABS: ALANINE AMINOTRANSFERASE 33 IU/L (13-69); ALBUMIN 3.1 g/dl (3.3-4.9); ALBUMIN/GLOBULIN RATIO 0.91; ALKALINE PHOSPHATASE 118 IU/L (42-121); ANION GAP 15 (8-16); ASPARTATE AMINO TRANSFERASE 23 IU/L (15-46); BILIRUBIN,INDIRECT 0.3 mg/dl (0-1.1); BILIRUBIN,TOTAL 0.3 mg/dl (0.2-1.3); BLOOD UREA NITROGEN 25 mg/dl (7-20); CALCIUM 8.8 mg/dl (8.4-10.2); CARBON DIOXIDE 24 mmol/L (21-31); CHLORIDE 100 mmol/L (97-110); POTASSIUM 4.7 mmol/L (3.5-5.1); SODIUM 134 mmol/L (135-144); TOTAL PROTEIN 6.5 g/dl (6.1-8.1)
[2018-04-25 06:50] LABS: MAGNESIUM 1.7 mg/dl (1.7-2.5)
[2018-04-25 06:50] LABS: PHOSPHORUS 4.6 mg/dl (2.5-4.9)
[2018-04-25 06:55] LABS: GLUCOSE 481 mg/dl (70-220)
[2018-04-25] MEDS: INSULIN GLARGINE [LANtus] 3 ML PEN SC (07:42)
[2018-04-25] MEDS: ASCORBIC ACID 500 MG TAB PO ×2 (08:28→21:26)
[2018-04-25] MEDS: TERBINAFINE 250 MG TAB PO (08:28)
[2018-04-25] MEDS: ZINC SULFATE 220 MG CAP PO (08:29)
[2018-04-25] MEDS: ENOXAPARIN 40 MG/0.4 ML SYG SC (08:31)
[2018-04-25] MEDS: SODIUM HYPOCHLORITE 1/40% 1L IRRIG IRR ×2 (08:32→20:03)
[2018-04-25] MEDS: SILVER SULFADIAZINE 1% 25 GM CR TOP ×2 (08:34→20:04)
[2018-04-25] MEDS: ERTAPENEM SODIUM 1 GM in SOD CHLORIDE 0.9% 100 ML IVPB (16:45)
[2018-04-25] MEDS: morphine LIQ (10 MG/5 ML) CUP PO (21:41)
[2018-04-26] MEDS: ACCU-CHEK XX (02:00)
[2018-04-26] MEDS: VANCOMYCIN 1.25 GM in SOD CHLORIDE 0.9% 250 ML IVPB ×2 (05:30→17:59)
[2018-04-26] MEDS: PANTOPRAZOLE (EC) 40 MG TAB PO (05:32)
[2018-04-26] MEDS: HYDROCODONE/APAP (5/325) TAB PO (06:04)
[2018-04-26 06:18] LABS: ADD MAN DIFF? NO
[2018-04-26 06:22] LABS: WHITE BLOOD COUNT 7.5 10^3/ul (4.8-10.8)
[2018-04-26 06:22] LABS: BASOPHIL # 0.1 10^3/ul (0.0-0.1); BASOPHILS % 0.7 % (0.0-2.0); EOSINOPHILS # 0.3 10^3/ul (0.0-0.5); EOSINOPHILS % 4.4 % (0.0-7.0); HEMATOCRIT 37.1 % (42.0-52.0); LYMPHOCYTES # 2.6 10^3/ul (0.8-2.9); MEAN CORPUSCULAR HEMOGLOBIN 26.5 pg (29.0-33.0); MEAN CORPUSCULAR HGB CONC 32.3 g/dl (32.0-37.0); MEAN CORPUSCULAR VOLUME 81.9 fl (82.0-101.0); MEAN PLATELET VOLUME 8.9 fl (7.4-10.4); MONOCYTE # 0.5 10^3/ul (0.3-0.9); MONOCYTES % 6.7 % (0.0-11.0); NEUTROPHIL # 4.1 10^3/ul (1.6-7.5); NEUTROPHILS % 53.8 % (39.0-77.0); PLATELET COUNT 440 10^3/UL (140-415); RED BLOOD COUNT 4.53 10^6/ul (4.70-6.10); RED CELL DISTRIBUTION WIDTH 14.3 % (11.5-14.5)
[2018-04-26 06:56] LABS: ANION GAP 10 (8-16); BLOOD UREA NITROGEN 20 mg/dl (7-20); CALCIUM 8.8 mg/dl (8.4-10.2); CARBON DIOXIDE 28 mmol/L (21-31); CHLORIDE 100 mmol/L (97-110); CREATININE 0.89 mg/dl (0.61-1.24); GLUCOSE 350 mg/dl (70-220); POTASSIUM 4.4 mmol/L (3.5-5.1); SODIUM 134 mmol/L (135-144)
[2018-04-26 07:11] LABS: PHOSPHORUS 3.6 mg/dl (2.5-4.9)
[2018-04-26 07:11] LABS: MAGNESIUM 1.6 mg/dl (1.7-2.5)
[2018-04-26] MEDS: INSULIN GLARGINE [LANtus] 3 ML PEN SC (08:02)
[2018-04-26] MEDS: INSULIN ASPART [NOVOLOG] 3 ML PEN SC ×3 (08:02→18:05)
[2018-04-26] MEDS: SILVER SULFADIAZINE 1% 25 GM CR TOP (09:00)
[2018-04-26] MEDS: SODIUM HYPOCHLORITE 1/40% 1L IRRIG IRR ×2 (09:00→20:40)
[2018-04-26] MEDS: TERBINAFINE 250 MG TAB PO (09:16)
[2018-04-26] MEDS: ASCORBIC ACID 500 MG TAB PO ×2 (09:16→20:38)
[2018-04-26] MEDS: ZINC SULFATE 220 MG CAP PO (09:16)
[2018-04-26] MEDS: morphine LIQ (10 MG/5 ML) CUP PO ×2 (09:27→20:38)
[2018-04-26] MEDS: ENOXAPARIN 40 MG/0.4 ML SYG SC (09:32)
[2018-04-26] MEDS: ERTAPENEM SODIUM 1 GM in SOD CHLORIDE 0.9% 100 ML IVPB (15:20)
[2018-04-26] MEDS: MAGNESIUM SULFATE 2 GM/50 ML 50 ML IVPB (15:22)
[2018-04-26] MEDS: metFORMIN 500 MG TAB PO (18:06)
[2018-04-27] MEDS: ACCU-CHEK XX (02:00)
[2018-04-27] MEDS: VANCOMYCIN 1.25 GM in SOD CHLORIDE 0.9% 250 ML IVPB ×2 (04:38→16:49)
[2018-04-27] MEDS: PANTOPRAZOLE (EC) 40 MG TAB PO (06:29)
[2018-04-27] MEDS: morphine LIQ (10 MG/5 ML) CUP PO ×2 (06:30→19:38)
[2018-04-27] MEDS: LIDOCAINE 1% (MPF) 5 ML VIAL SC (07:32)
[2018-04-27] MEDS: SODIUM HYPOCHLORITE 1/40% 1L IRRIG IRR ×2 (07:33→21:00)
[2018-04-27] MEDS: TERBINAFINE 250 MG TAB PO (08:19)
[2018-04-27] MEDS: ASCORBIC ACID 500 MG TAB PO ×2 (08:20→20:15)
[2018-04-27] MEDS: metFORMIN 500 MG TAB PO ×2 (08:20→17:22)
[2018-04-27] MEDS: ZINC SULFATE 220 MG CAP PO (08:20)
[2018-04-27] MEDS: INSULIN GLARGINE [LANtus] 3 ML PEN SC (08:24)
[2018-04-27] MEDS: INSULIN ASPART [NOVOLOG] 3 ML PEN SC ×3 (08:24→17:24)
[2018-04-27] MEDS: ENOXAPARIN 40 MG/0.4 ML SYG SC (08:25)
[2018-04-27 16:35] LABS: VANCOMYCIN,TROUGH 14.8 ug/ml (10.0-20.0)
[2018-04-28] MEDS: ACCU-CHEK XX (02:00)
[2018-04-28] MEDS: VANCOMYCIN 1.25 GM in SOD CHLORIDE 0.9% 250 ML IVPB ×2 (04:35→16:12)
[2018-04-28] MEDS: PANTOPRAZOLE (EC) 40 MG TAB PO (05:38)
[2018-04-28] MEDS: HYDROCODONE/APAP (5/325) TAB PO ×2 (05:39→16:21)
[2018-04-28] MEDS: ASCORBIC ACID 500 MG TAB PO (08:34)
[2018-04-28] MEDS: TERBINAFINE 250 MG TAB PO (08:34)
[2018-04-28] MEDS: metFORMIN 500 MG TAB PO ×2 (08:34→17:45)
[2018-04-28] MEDS: ZINC SULFATE 220 MG CAP PO (08:34)
[2018-04-28] MEDS: ENOXAPARIN 40 MG/0.4 ML SYG SC (08:38)
[2018-04-28] MEDS: INSULIN GLARGINE [LANtus] 3 ML PEN SC (08:39)
[2018-04-28] MEDS: SODIUM HYPOCHLORITE 1/40% 1L IRRIG IRR (09:00)
[2018-04-28] MEDS: morphine LIQ (10 MG/5 ML) CUP PO (09:08)
[2018-04-28] MEDS: INSULIN ASPART [NOVOLOG] 3 ML PEN SC ×3 (09:31→17:47)
== END 2018-04-28 18:40 | disposition home health service (06) | DRG 623 ==
LOC: MS2 04-21 14:25 → E/R 19:45 → MS3 21:29
PROC: 0KBV0ZZ Excision of Right Foot Muscle, Open Approach (ICD-10-PCS; principal; 2018-04-24 17:54)
PROC: 0QBL0ZX Excision of Right Tarsal, Open Approach, Diagnostic (ICD-10-PCS; 2018-04-24 17:54)
PROC: 0HRMX74 Replacement of Right Foot Skin with Autologous Tissue Substitute, Partial Thickness, External Approach (ICD-10-PCS; 2018-04-24 17:54)
PROC: 0YU Anatomical Regions, Lower Extremities, Supplement (ICD-10-PCS; 2018-04-24 17:54)
PROC: 0KBV0ZZ Excision of Right Foot Muscle, Open Approach (ICD-10-PCS; 2018-04-24 17:54)
PROC: 0HBHXZZ Excision of Right Upper Leg Skin, External Approach (ICD-10-PCS; 2018-04-24 17:54)
PROC: 02HV33Z Insertion of Infusion Device into Superior Vena Cava, Percutaneous Approach (ICD-10-PCS; 2018-04-24 17:54)
DX: E11.621 Type 2 diabetes mellitus with foot ulcer (principal); L97.416 Non-pressure chronic ulcer of right heel and midfoot with bone involvement without evidence of necrosis; M86.671 Other chronic osteomyelitis, right ankle and foot; L03.115 Cellulitis of right lower limb; E11.69 Type 2 diabetes mellitus with other specified complication; E11.65 Type 2 diabetes mellitus with hyperglycemia; D63.8 Anemia in other chronic diseases classified elsewhere; M54.9 Dorsalgia, unspecified; E11.649 Type 2 diabetes mellitus with hypoglycemia without coma; E11.42 Type 2 diabetes mellitus with diabetic polyneuropathy; B95.2 Enterococcus as the cause of diseases classified elsewhere; B95.7 Other staphylococcus as the cause of diseases classified elsewhere; Z79.4 Long term (current) use of insulin
CPT/HCPCS: 36415; 36569; 71045; 73620; 73630; 76937; 80048; 80053; 80202; 82607; 82947; 82962; 83036; 83540; 83605; 83735; 84100; 84443; 85025; 85610; 85651; 85730; 86140; 87040; 87070; 87075; 87102; 88304; 88311; 96372; 96374; 96375; 97161; 99285-25

== ENCOUNTER 2018-05-09 20:37 | Inpatient (IN) | payer OTHER ==
[2018-05-09 22:10] LABS: ADD MAN DIFF? NO
[2018-05-09] MEDS: CEFEPIME 2GM/50 ML (PMX) 50 ML IVPB (22:12)
[2018-05-09] MEDS: KETOROLAC 30 MG INJ IV (22:12)
[2018-05-09] MEDS: HYDROCODONE/APAP (5/325) TAB PO (22:12)
[2018-05-09 22:13] LABS: WHITE BLOOD COUNT 15.1 10^3/ul (4.8-10.8)
[2018-05-09 22:13] LABS: BASOPHIL # 0.1 10^3/ul (0.0-0.1); BASOPHILS % 0.5 % (0.0-2.0); EOSINOPHILS # 0.1 10^3/ul (0.0-0.5); EOSINOPHILS % 0.7 % (0.0-7.0); HEMATOCRIT 32.3 % (42.0-52.0); HEMOGLOBIN 10.4 g/dl (14.0-18.0); LYMPHOCYTES # 2.2 10^3/ul (0.8-2.9); LYMPHOCYTES % 14.8 % (15.0-51.0); MEAN CORPUSCULAR HEMOGLOBIN 26.5 pg (29.0-33.0); MEAN CORPUSCULAR HGB CONC 32.2 g/dl (32.0-37.0); MEAN CORPUSCULAR VOLUME 82.2 fl (82.0-101.0); MEAN PLATELET VOLUME 8.4 fl (7.4-10.4); MONOCYTE # 1.2 10^3/ul (0.3-0.9); MONOCYTES % 8.2 % (0.0-11.0); NEUTROPHIL # 11.4 10^3/ul (1.6-7.5); NEUTROPHILS % 75.2 % (39.0-77.0); PLATELET COUNT 465 10^3/UL (140-415); RED BLOOD COUNT 3.93 10^6/ul (4.70-6.10); RED CELL DISTRIBUTION WIDTH 14.6 % (11.5-14.5)
[2018-05-09] MEDS: SODIUM CHLORIDE 0.9% 1L BAG IV* (22:13)
[2018-05-09 22:32] LABS: PROTIME 16.4 Sec (11.9-14.9); PT RATIO 1.3
[2018-05-09 22:33] LABS: PARTIAL THROMBOPLASTIN TIME 38.1 Sec (25.0-35.0)
[2018-05-09 22:35] LABS: LACTIC ACID 1.7 mmol/L (0.5-2.0)
[2018-05-09 22:36] LABS: ALANINE AMINOTRANSFERASE 24 IU/L (13-69); ALBUMIN 3.6 g/dl (3.3-4.9); ALBUMIN/GLOBULIN RATIO 0.87; ALKALINE PHOSPHATASE 135 IU/L (42-121); ANION GAP 15 (8-16); ASPARTATE AMINO TRANSFERASE 19 IU/L (15-46); BILIRUBIN,INDIRECT 0.6 mg/dl (0-1.1); BILIRUBIN,TOTAL 0.6 mg/dl (0.2-1.3); BLOOD UREA NITROGEN 20 mg/dl (7-20); CARBON DIOXIDE 25 mmol/L (21-31); CHLORIDE 101 mmol/L (97-110); CREATININE 0.96 mg/dl (0.61-1.24); GLUCOSE 111 mg/dl (70-220); POTASSIUM 3.9 mmol/L (3.5-5.1); SODIUM 137 mmol/L (135-144); TOTAL PROTEIN 7.7 g/dl (6.1-8.1)
[2018-05-09 22:47] LABS: TROPONIN-I < 0.010 ng/ml (0.000-0.120)
[2018-05-09] MEDS: metroNIDAZOLE 500 MG/NS (PMX) 100 ML IVPB (23:04)
[2018-05-09] MEDS ORDERED: GLUCOSE GEL 15 GRAM TUBE PO ×2 (23:45)
[2018-05-09] MEDS ORDERED: DEXTROSE 50% 50 ML SYRINGE IV (23:45)
[2018-05-09] MEDS ORDERED: GLUCOSE GEL 15 GRAM TUBE BUCCAL (23:45)
[2018-05-09] MEDS ORDERED: GLUCAGON 1 MG INJ IM (23:45)
[2018-05-10] MEDS ORDERED: ALBUTEROL/IPRATROPIUM (NEB) 3 ML AMP HHN
[2018-05-10] MEDS ORDERED: ONDANSETRON 4 MG INJ IV
[2018-05-10] MEDS ORDERED: ACETAMINOPHEN 325 MG TAB PO
[2018-05-10] MEDS ORDERED: HYDROCODONE/APAP (10/325) TAB PO
[2018-05-10] MEDS ORDERED: NACL 0.9% 3 ML SYG IV
[2018-05-10 01:10] LABS: LACTIC ACID 0.7 mmol/L (0.5-2.0)
[2018-05-10] MEDS: VANCOMYCIN 1 GM (PMX) 250 ML IVPB (01:21)
[2018-05-10] MEDS: ACCU-CHEK XX (02:03)
[2018-05-10 03:47] LABS: LACTIC ACID 0.8 mmol/L (0.5-2.0)
[2018-05-10 05:30] LABS: WHITE BLOOD COUNT 10.5 10^3/ul (4.8-10.8)
[2018-05-10 05:30] LABS: ADD MAN DIFF? NO; BASOPHIL # 0.1 10^3/ul (0.0-0.1); BASOPHILS % 0.7 % (0.0-2.0); EOSINOPHILS # 0.5 10^3/ul (0.0-0.5); EOSINOPHILS % 4.5 % (0.0-7.0); HEMATOCRIT 34.1 % (42.0-52.0); HEMOGLOBIN 10.7 g/dl (14.0-18.0); LYMPHOCYTES # 1.6 10^3/ul (0.8-2.9); LYMPHOCYTES % 15.6 % (15.0-51.0); MEAN CORPUSCULAR HEMOGLOBIN 26.5 pg (29.0-33.0); MEAN CORPUSCULAR HGB CONC 31.4 g/dl (32.0-37.0); MEAN CORPUSCULAR VOLUME 84.4 fl (82.0-101.0); MEAN PLATELET VOLUME 8.4 fl (7.4-10.4); MONOCYTES % 9.6 % (0.0-11.0); NEUTROPHIL # 7.2 10^3/ul (1.6-7.5); PLATELET COUNT 445 10^3/UL (140-415); RED BLOOD COUNT 4.04 10^6/ul (4.70-6.10); RED CELL DISTRIBUTION WIDTH 14.7 % (11.5-14.5)
[2018-05-10 05:52] LABS: ALANINE AMINOTRANSFERASE 26 IU/L (13-69); ALBUMIN 3.3 g/dl (3.3-4.9); ALBUMIN/GLOBULIN RATIO 0.97; ALKALINE PHOSPHATASE 121 IU/L (42-121); ANION GAP 15 (8-16); ASPARTATE AMINO TRANSFERASE 18 IU/L (15-46); BILIRUBIN,INDIRECT 0.3 mg/dl (0-1.1); BILIRUBIN,TOTAL 0.3 mg/dl (0.2-1.3); BLOOD UREA NITROGEN 18 mg/dl (7-20); CALCIUM 8.7 mg/dl (8.4-10.2); CARBON DIOXIDE 28 mmol/L (21-31); CHLORIDE 101 mmol/L (97-110); CHOL/HDL RATIO 2.9 RATIO; CHOLESTEROL 97 mg/dl (100-200); CREATININE 0.86 mg/dl (0.61-1.24); GLUCOSE 218 mg/dl (70-220); HDL CHOLESTEROL 33 mg/dl (27-67); LDL CHOLESTEROL,CALCULATED 52 mg/dl; MAGNESIUM 2.1 mg/dl (1.7-2.5); PHOSPHORUS 4.4 mg/dl (2.5-4.9); POTASSIUM 4.2 mmol/L (3.5-5.1); SODIUM 140 mmol/L (135-144); TOTAL PROTEIN 6.7 g/dl (6.1-8.1); TRIGLYCERIDES 59 mg/dl (0-149)
[2018-05-10 06:44] LABS: HEMOGLOBIN A1C 10.6 % (0-5.9)
[2018-05-10] MEDS ORDERED: KETOROLAC 30 MG INJ IV (08:00)
[2018-05-10] MEDS: PANTOPRAZOLE (EC) 40 MG TAB PO (08:07)
[2018-05-10] MEDS ORDERED: VANCOMYCIN IV PER PHARMACY XX (09:00)
[2018-05-10] MEDS ORDERED: morphine 2 MG INJ IV ×2 (09:00)
[2018-05-10] MEDS: CEFEPIME 1GM/50 ML (PMX) 50 ML IVPB ×2 (09:33→20:54)
[2018-05-10] MEDS: TERBINAFINE 250 MG TAB PO (09:34)
[2018-05-10] MEDS: HEPARIN 5,000 UNIT/0.5 ML VIAL SC ×2 (09:34→20:56)
[2018-05-10] MEDS: HYDROmorphONE 1 MG/ML SYG IV ×2 (09:34→19:08)
[2018-05-10] MEDS: ASCORBIC ACID 500 MG TAB PO ×2 (09:34→20:56)
[2018-05-10] MEDS: INSULIN ASPART [NOVOLOG] 3 ML PEN SC ×6 (09:54→20:57)
[2018-05-10] MEDS: INSULIN GLARGINE [LANtus] 3 ML PEN SC (10:08)
[2018-05-10] MEDS: VANCOMYCIN 1.25 GM in SOD CHLORIDE 0.9% 250 ML IVPB ×2 (11:00→23:10)
[2018-05-10] MEDS: traMADol 50 MG TAB PO ×2 (14:02→22:26)
[2018-05-10] MEDS: SODIUM HYPOCHLORITE (1/40) 1 APPLIC BTL IRR (21:10)
[2018-05-11] MEDS: ACCU-CHEK XX (01:32)
[2018-05-11 05:42] LABS: ADD MAN DIFF? NO
[2018-05-11] MEDS: traMADol 50 MG TAB PO ×3 (05:42→21:25)
[2018-05-11] MEDS: PANTOPRAZOLE (EC) 40 MG TAB PO (05:42)
[2018-05-11 05:46] LABS: BASOPHIL # 0.1 10^3/ul (0.0-0.1); BASOPHILS % 0.6 % (0.0-2.0); EOSINOPHILS # 0.5 10^3/ul (0.0-0.5); EOSINOPHILS % 5.3 % (0.0-7.0); HEMATOCRIT 32.5 % (42.0-52.0); HEMOGLOBIN 10.4 g/dl (14.0-18.0); LYMPHOCYTES # 1.6 10^3/ul (0.8-2.9); LYMPHOCYTES % 17.6 % (15.0-51.0); MEAN CORPUSCULAR HEMOGLOBIN 26.2 pg (29.0-33.0); MEAN CORPUSCULAR VOLUME 81.9 fl (82.0-101.0); MEAN PLATELET VOLUME 8.4 fl (7.4-10.4); MONOCYTE # 0.7 10^3/ul (0.3-0.9); MONOCYTES % 7.9 % (0.0-11.0); NEUTROPHIL # 6.1 10^3/ul (1.6-7.5); PLATELET COUNT 486 10^3/UL (140-415); RED BLOOD COUNT 3.97 10^6/ul (4.70-6.10); RED CELL DISTRIBUTION WIDTH 14.5 % (11.5-14.5)
[2018-05-11 06:07] LABS: ANION GAP 12 (8-16); BLOOD UREA NITROGEN 13 mg/dl (7-20); CALCIUM 8.4 mg/dl (8.4-10.2); CARBON DIOXIDE 26 mmol/L (21-31); CHLORIDE 103 mmol/L (97-110); CREATININE 0.72 mg/dl (0.61-1.24); GLUCOSE 136 mg/dl (70-220); POTASSIUM 3.9 mmol/L (3.5-5.1); SODIUM 137 mmol/L (135-144)
[2018-05-11] MEDS: INSULIN ASPART [NOVOLOG] 3 ML PEN SC ×7 (08:00→21:00)
[2018-05-11] MEDS: ASCORBIC ACID 500 MG TAB PO ×2 (08:57→20:40)
[2018-05-11] MEDS: TERBINAFINE 250 MG TAB PO (08:57)
[2018-05-11] MEDS: CEFEPIME 1GM/50 ML (PMX) 50 ML IVPB ×2 (08:57→20:41)
[2018-05-11] MEDS: HEPARIN 5,000 UNIT/0.5 ML VIAL SC ×2 (08:59→20:41)
[2018-05-11] MEDS: INSULIN GLARGINE [LANtus] 3 ML PEN SC (09:00)
[2018-05-11] MEDS: SODIUM HYPOCHLORITE (1/40) 1 APPLIC BTL IRR ×2 (09:05→20:41)
[2018-05-11] MEDS: HYDROmorphONE 1 MG/ML SYG IV ×3 (09:40→21:25)
[2018-05-11] MEDS: hydrOXYzine HCL 25 MG TAB PO (14:34)
[2018-05-11] MEDS: VANCOMYCIN 1.25 GM in SOD CHLORIDE 0.9% 250 ML IVPB (15:14)
[2018-05-11] MEDS: POVIDONE IODINE 10% 28.4 GM OINT TOP (20:41)
[2018-05-11 21:13] LABS: GLUCOSE 36 mg/dl (70-220)
[2018-05-12] MEDS: ACCU-CHEK XX (02:00)
[2018-05-12 03:22] LABS: VANCOMYCIN,TROUGH 9.9 ug/ml (10.0-20.0)
[2018-05-12] MEDS: VANCOMYCIN 1.25 GM in SOD CHLORIDE 0.9% 250 ML IVPB (03:39)
[2018-05-12] MEDS: HYDROmorphONE 1 MG/ML SYG IV ×3 (04:46→19:32)
[2018-05-12] MEDS: traMADol 50 MG TAB PO ×3 (05:46→21:21)
[2018-05-12] MEDS: PANTOPRAZOLE (EC) 40 MG TAB PO (05:46)
[2018-05-12 05:54] LABS: ADD MAN DIFF? NO
[2018-05-12 06:02] LABS: WHITE BLOOD COUNT 7.4 10^3/ul (4.8-10.8)
[2018-05-12 06:02] LABS: BASOPHIL # 0.1 10^3/ul (0.0-0.1); BASOPHILS % 0.7 % (0.0-2.0); EOSINOPHILS # 0.6 10^3/ul (0.0-0.5); EOSINOPHILS % 7.7 % (0.0-7.0); HEMATOCRIT 34.7 % (42.0-52.0); HEMOGLOBIN 11.1 g/dl (14.0-18.0); LYMPHOCYTES # 1.5 10^3/ul (0.8-2.9); LYMPHOCYTES % 20.5 % (15.0-51.0); MEAN CORPUSCULAR HEMOGLOBIN 26.2 pg (29.0-33.0); MEAN PLATELET VOLUME 8.5 fl (7.4-10.4); MONOCYTE # 0.6 10^3/ul (0.3-0.9); MONOCYTES % 7.7 % (0.0-11.0); NEUTROPHIL # 4.7 10^3/ul (1.6-7.5); NEUTROPHILS % 62.9 % (39.0-77.0); PLATELET COUNT 577 10^3/UL (140-415); RED BLOOD COUNT 4.23 10^6/ul (4.70-6.10); RED CELL DISTRIBUTION WIDTH 14.5 % (11.5-14.5)
[2018-05-12 06:53] LABS: ANION GAP 13 (8-16); BLOOD UREA NITROGEN 12 mg/dl (7-20); CALCIUM 8.9 mg/dl (8.4-10.2); CARBON DIOXIDE 28 mmol/L (21-31); CHLORIDE 101 mmol/L (97-110); CREATININE 0.74 mg/dl (0.61-1.24); GLUCOSE 202 mg/dl (70-220); POTASSIUM 4.3 mmol/L (3.5-5.1); SODIUM 138 mmol/L (135-144)
[2018-05-12] MEDS: CEFEPIME 1GM/50 ML (PMX) 50 ML IVPB ×2 (08:11→21:19)
[2018-05-12] MEDS: ASCORBIC ACID 500 MG TAB PO ×2 (08:12→21:21)
[2018-05-12] MEDS: HEPARIN 5,000 UNIT/0.5 ML VIAL SC ×2 (08:13→21:20)
[2018-05-12] MEDS: INSULIN ASPART [NOVOLOG] 3 ML PEN SC ×7 (08:14→21:00)
[2018-05-12] MEDS: POVIDONE IODINE 10% 28.4 GM OINT TOP ×2 (08:17→21:22)
[2018-05-12] MEDS: SODIUM HYPOCHLORITE (1/40) 1 APPLIC BTL IRR ×2 (08:17→21:22)
[2018-05-12] MEDS: TERBINAFINE 250 MG TAB PO (08:20)
[2018-05-12] MEDS: INSULIN GLARGINE [LANtus] 3 ML PEN SC (08:39)
[2018-05-12] MEDS: VANCOMYCIN 1.5 GM in SOD CHLORIDE 0.9% 250 ML IVPB (15:34)
[2018-05-13] MEDS: ACCU-CHEK XX (02:00)
[2018-05-13] MEDS: VANCOMYCIN 1.5 GM in SOD CHLORIDE 0.9% 250 ML IVPB ×2 (03:47→15:50)
[2018-05-13 05:24] LABS: ADD MAN DIFF? NO
[2018-05-13 05:26] LABS: WHITE BLOOD COUNT 7.5 10^3/ul (4.8-10.8)
[2018-05-13 05:26] LABS: BASOPHIL # 0.1 10^3/ul (0.0-0.1); BASOPHILS % 0.8 % (0.0-2.0); EOSINOPHILS # 0.6 10^3/ul (0.0-0.5); EOSINOPHILS % 7.8 % (0.0-7.0); HEMOGLOBIN 11.5 g/dl (14.0-18.0); LYMPHOCYTES # 1.7 10^3/ul (0.8-2.9); LYMPHOCYTES % 23.2 % (15.0-51.0); MEAN CORPUSCULAR HEMOGLOBIN 26.3 pg (29.0-33.0); MEAN CORPUSCULAR HGB CONC 31.9 g/dl (32.0-37.0); MEAN CORPUSCULAR VOLUME 82.2 fl (82.0-101.0); MEAN PLATELET VOLUME 8.3 fl (7.4-10.4); MONOCYTE # 0.6 10^3/ul (0.3-0.9); MONOCYTES % 8.3 % (0.0-11.0); NEUTROPHIL # 4.4 10^3/ul (1.6-7.5); NEUTROPHILS % 59.4 % (39.0-77.0); PLATELET COUNT 612 10^3/UL (140-415); RED BLOOD COUNT 4.38 10^6/ul (4.70-6.10); RED CELL DISTRIBUTION WIDTH 14.3 % (11.5-14.5)
[2018-05-13 05:54] LABS: ANION GAP 13 (8-16); BLOOD UREA NITROGEN 15 mg/dl (7-20); CALCIUM 9.1 mg/dl (8.4-10.2); CARBON DIOXIDE 28 mmol/L (21-31); CHLORIDE 102 mmol/L (97-110); CREATININE 0.81 mg/dl (0.61-1.24); GLUCOSE 237 mg/dl (70-220); POTASSIUM 4.4 mmol/L (3.5-5.1); SODIUM 139 mmol/L (135-144)
[2018-05-13] MEDS: traMADol 50 MG TAB PO ×3 (06:00→21:38)
[2018-05-13] MEDS: HYDROmorphONE 1 MG/ML SYG IV ×3 (06:04→18:17)
[2018-05-13] MEDS: PANTOPRAZOLE (EC) 40 MG TAB PO (06:04)
[2018-05-13] MEDS: INSULIN ASPART [NOVOLOG] 3 ML PEN SC ×7 (08:00→21:42)
[2018-05-13] MEDS: HEPARIN 5,000 UNIT/0.5 ML VIAL SC ×2 (08:02→21:42)
[2018-05-13] MEDS: CEFEPIME 1GM/50 ML (PMX) 50 ML IVPB (08:02)
[2018-05-13] MEDS: INSULIN GLARGINE [LANtus] 3 ML PEN SC (08:02)
[2018-05-13] MEDS: TERBINAFINE 250 MG TAB PO (08:03)
[2018-05-13] MEDS: ASCORBIC ACID 500 MG TAB PO ×2 (08:17→21:38)
[2018-05-13] MEDS: POVIDONE IODINE 10% 28.4 GM OINT TOP ×2 (08:18→21:59)
[2018-05-13] MEDS: SODIUM HYPOCHLORITE (1/40) 1 APPLIC BTL IRR ×2 (08:18→21:59)
[2018-05-13] MEDS: MEROPENEM 500MG/50 ML (PMX) 50 ML IVPB (14:53)
[2018-05-13] MEDS: MEROPENEM 1 GM/50ML(PMX) 50 ML IVPB (21:44)
[2018-05-14] MEDS: ACCU-CHEK XX (02:00)
[2018-05-14 02:19] LABS: WHITE BLOOD COUNT 7.9 10^3/ul (4.8-10.8)
[2018-05-14 02:19] LABS: ADD MAN DIFF? NO; BASOPHIL # 0.1 10^3/ul (0.0-0.1); BASOPHILS % 0.6 % (0.0-2.0); EOSINOPHILS # 0.6 10^3/ul (0.0-0.5); EOSINOPHILS % 7.1 % (0.0-7.0); HEMATOCRIT 36.5 % (42.0-52.0); HEMOGLOBIN 11.4 g/dl (14.0-18.0); LYMPHOCYTES # 1.7 10^3/ul (0.8-2.9); LYMPHOCYTES % 21.7 % (15.0-51.0); MEAN CORPUSCULAR HEMOGLOBIN 25.9 pg (29.0-33.0); MEAN CORPUSCULAR HGB CONC 31.2 g/dl (32.0-37.0); MEAN CORPUSCULAR VOLUME 82.8 fl (82.0-101.0); MEAN PLATELET VOLUME 8.6 fl (7.4-10.4); MONOCYTE # 0.6 10^3/ul (0.3-0.9); MONOCYTES % 7.4 % (0.0-11.0); NEUTROPHIL # 4.9 10^3/ul (1.6-7.5); NEUTROPHILS % 62.6 % (39.0-77.0); PLATELET COUNT 618 10^3/UL (140-415); RED BLOOD COUNT 4.41 10^6/ul (4.70-6.10); RED CELL DISTRIBUTION WIDTH 14.4 % (11.5-14.5)
[2018-05-14] MEDS: VANCOMYCIN 1.5 GM in SOD CHLORIDE 0.9% 250 ML IVPB ×2 (02:36→15:43)
[2018-05-14 02:47] LABS: ANION GAP 14 (8-16); BLOOD UREA NITROGEN 18 mg/dl (7-20); CALCIUM 9.1 mg/dl (8.4-10.2); CARBON DIOXIDE 29 mmol/L (21-31); CHLORIDE 99 mmol/L (97-110); CREATININE 0.84 mg/dl (0.61-1.24); GLUCOSE 360 mg/dl (70-220); POTASSIUM 4.5 mmol/L (3.5-5.1); SODIUM 137 mmol/L (135-144)
[2018-05-14 02:50] LABS: VANCOMYCIN,TROUGH 13.8 ug/ml (10.0-20.0)
[2018-05-14] MEDS: INSULIN ASPART [NOVOLOG] 3 ML PEN SC ×8 (03:16→20:10)
[2018-05-14] MEDS: HYDROmorphONE 1 MG/ML SYG IV ×3 (03:44→20:13)
[2018-05-14] MEDS: traMADol 50 MG TAB PO ×3 (05:32→21:28)
[2018-05-14] MEDS: PANTOPRAZOLE (EC) 40 MG TAB PO (05:32)
[2018-05-14] MEDS: MEROPENEM 1 GM/50ML(PMX) 50 ML IVPB ×3 (05:32→21:27)
[2018-05-14] MEDS: TERBINAFINE 250 MG TAB PO (08:49)
[2018-05-14] MEDS: SODIUM HYPOCHLORITE (1/40) 1 APPLIC BTL IRR ×2 (08:49→20:10)
[2018-05-14] MEDS: ASCORBIC ACID 500 MG TAB PO ×2 (08:50→20:12)
[2018-05-14] MEDS: POVIDONE IODINE 10% 28.4 GM OINT TOP ×2 (08:50→20:11)
[2018-05-14] MEDS: HEPARIN 5,000 UNIT/0.5 ML VIAL SC ×2 (08:51→20:12)
[2018-05-14] MEDS: INSULIN GLARGINE [LANtus] 3 ML PEN SC (11:28)
[2018-05-14] MEDS: DIPHENHYDRAMINE 50 MG INJ IV (16:01)
[2018-05-14] MEDS: DEXTROSE 50% 50 ML SYRINGE IV (20:47)
[2018-05-14 21:33] LABS: GLUCOSE 141 mg/dl (70-220)
[2018-05-15] MEDS: HYDROmorphONE 1 MG/ML SYG IV ×4 (01:46→19:55)
[2018-05-15] MEDS: ACCU-CHEK XX (02:00)
[2018-05-15] MEDS: VANCOMYCIN 1.5 GM in SOD CHLORIDE 0.9% 250 ML IVPB ×2 (03:59→16:42)
[2018-05-15 05:56] LABS: ADD MAN DIFF? NO
[2018-05-15 06:01] LABS: BASOPHIL # 0.1 10^3/ul (0.0-0.1); BASOPHILS % 0.9 % (0.0-2.0); EOSINOPHILS # 0.6 10^3/ul (0.0-0.5); EOSINOPHILS % 9.1 % (0.0-7.0); HEMATOCRIT 37.4 % (42.0-52.0); HEMOGLOBIN 11.8 g/dl (14.0-18.0); LYMPHOCYTES # 1.9 10^3/ul (0.8-2.9); LYMPHOCYTES % 29.3 % (15.0-51.0); MEAN CORPUSCULAR HEMOGLOBIN 26.3 pg (29.0-33.0); MEAN CORPUSCULAR HGB CONC 31.6 g/dl (32.0-37.0); MEAN CORPUSCULAR VOLUME 83.3 fl (82.0-101.0); MEAN PLATELET VOLUME 8.4 fl (7.4-10.4); MONOCYTE # 0.5 10^3/ul (0.3-0.9); MONOCYTES % 7.8 % (0.0-11.0); NEUTROPHIL # 3.3 10^3/ul (1.6-7.5); PLATELET COUNT 648 10^3/UL (140-415); RED BLOOD COUNT 4.49 10^6/ul (4.70-6.10); RED CELL DISTRIBUTION WIDTH 14.5 % (11.5-14.5)
[2018-05-15 06:01] LABS: WHITE BLOOD COUNT 6.4 10^3/ul (4.8-10.8)
[2018-05-15 06:30] LABS: ANION GAP 12 (8-16); BLOOD UREA NITROGEN 17 mg/dl (7-20); CALCIUM 9.1 mg/dl (8.4-10.2); CARBON DIOXIDE 31 mmol/L (21-31); CHLORIDE 98 mmol/L (97-110); GLUCOSE 207 mg/dl (70-220); POTASSIUM 4.4 mmol/L (3.5-5.1); SODIUM 137 mmol/L (135-144)
[2018-05-15] MEDS: PANTOPRAZOLE (EC) 40 MG TAB PO (07:04)
[2018-05-15] MEDS: MEROPENEM 1 GM/50ML(PMX) 50 ML IVPB ×3 (07:08→21:37)
[2018-05-15] MEDS: traMADol 50 MG TAB PO ×3 (08:00→21:37)
[2018-05-15] MEDS: INSULIN ASPART [NOVOLOG] 3 ML PEN SC ×7 (08:15→21:00)
[2018-05-15] MEDS: POVIDONE IODINE 10% 28.4 GM OINT TOP ×2 (09:00→21:00)
[2018-05-15] MEDS: SODIUM HYPOCHLORITE (1/40) 1 APPLIC BTL IRR ×2 (09:00→21:00)
[2018-05-15] MEDS: HEPARIN 5,000 UNIT/0.5 ML VIAL SC ×2 (09:11→21:39)
[2018-05-15] MEDS: INSULIN GLARGINE [LANtus] 3 ML PEN SC (09:11)
[2018-05-15] MEDS: ASCORBIC ACID 500 MG TAB PO ×2 (09:13→21:37)
[2018-05-15] MEDS: TERBINAFINE 250 MG TAB PO (09:13)
[2018-05-15] MEDS: LIDOCAINE 1% (MPF) 5 ML VIAL SC (11:54)
[2018-05-16] MEDS: ACCU-CHEK XX (00:25)
[2018-05-16] MEDS: HYDROmorphONE 1 MG/ML SYG IV ×3 (02:08→18:20)
[2018-05-16] MEDS: VANCOMYCIN 1.5 GM in SOD CHLORIDE 0.9% 250 ML IVPB ×2 (02:51→15:38)
[2018-05-16 06:29] LABS: ADD MAN DIFF? NO
[2018-05-16] MEDS: MEROPENEM 1 GM/50ML(PMX) 50 ML IVPB ×2 (06:33→13:38)
[2018-05-16 06:34] LABS: WHITE BLOOD COUNT 6.5 10^3/ul (4.8-10.8)
[2018-05-16 06:34] LABS: BASOPHIL # 0.1 10^3/ul (0.0-0.1); BASOPHILS % 0.8 % (0.0-2.0); EOSINOPHILS # 0.6 10^3/ul (0.0-0.5); EOSINOPHILS % 9.3 % (0.0-7.0); HEMOGLOBIN 11.6 g/dl (14.0-18.0); LYMPHOCYTES % 30.1 % (15.0-51.0); MEAN CORPUSCULAR HGB CONC 31.4 g/dl (32.0-37.0); MEAN PLATELET VOLUME 8.4 fl (7.4-10.4); MONOCYTE # 0.4 10^3/ul (0.3-0.9); MONOCYTES % 6.8 % (0.0-11.0); NEUTROPHIL # 3.4 10^3/ul (1.6-7.5); NEUTROPHILS % 51.8 % (39.0-77.0); PLATELET COUNT 621 10^3/UL (140-415); RED BLOOD COUNT 4.46 10^6/ul (4.70-6.10); RED CELL DISTRIBUTION WIDTH 14.9 % (11.5-14.5)
[2018-05-16] MEDS: PANTOPRAZOLE (EC) 40 MG TAB PO (06:34)
[2018-05-16] MEDS: traMADol 50 MG TAB PO ×3 (06:39→21:18)
[2018-05-16 06:59] LABS: ANION GAP 11 (8-16); BLOOD UREA NITROGEN 19 mg/dl (7-20); CALCIUM 9.2 mg/dl (8.4-10.2); CARBON DIOXIDE 30 mmol/L (21-31); CHLORIDE 103 mmol/L (97-110); CREATININE 0.81 mg/dl (0.61-1.24); GLUCOSE 175 mg/dl (70-220); POTASSIUM 4.5 mmol/L (3.5-5.1); SODIUM 139 mmol/L (135-144)
[2018-05-16] MEDS: ASCORBIC ACID 500 MG TAB PO ×2 (08:24→21:18)
[2018-05-16] MEDS: TERBINAFINE 250 MG TAB PO (08:24)
[2018-05-16] MEDS: INSULIN ASPART [NOVOLOG] 3 ML PEN SC ×7 (08:25→21:00)
[2018-05-16] MEDS: INSULIN GLARGINE [LANtus] 3 ML PEN SC (08:26)
[2018-05-16] MEDS: HEPARIN 5,000 UNIT/0.5 ML VIAL SC ×2 (08:27→21:22)
[2018-05-16] MEDS: SODIUM HYPOCHLORITE (1/40) 1 APPLIC BTL IRR ×2 (08:29→21:00)
[2018-05-16] MEDS: POVIDONE IODINE 10% 28.4 GM OINT TOP ×2 (08:29→21:00)
[2018-05-16] MEDS: hydrOXYzine HCL 25 MG TAB PO (15:40)
[2018-05-16] MEDS: CIPROFLOXACIN 500 MG TAB PO (18:10)
[2018-05-17] MEDS: ACCU-CHEK XX (02:00)
[2018-05-17] MEDS: VANCOMYCIN 1.5 GM in SOD CHLORIDE 0.9% 250 ML IVPB ×2 (02:17→14:41)
[2018-05-17] MEDS: HYDROmorphONE 1 MG/ML SYG IV ×3 (04:56→23:19)
[2018-05-17] MEDS: CIPROFLOXACIN 500 MG TAB PO ×2 (06:22→17:51)
[2018-05-17] MEDS: traMADol 50 MG TAB PO ×3 (06:23→22:00)
[2018-05-17] MEDS: PANTOPRAZOLE (EC) 40 MG TAB PO (06:23)
[2018-05-17] MEDS: TERBINAFINE 250 MG TAB PO (08:16)
[2018-05-17] MEDS: ASCORBIC ACID 500 MG TAB PO ×2 (08:16→20:24)
[2018-05-17] MEDS: INSULIN GLARGINE [LANtus] 3 ML PEN SC (08:18)
[2018-05-17] MEDS: HEPARIN 5,000 UNIT/0.5 ML VIAL SC ×2 (08:19→20:24)
[2018-05-17] MEDS: INSULIN ASPART [NOVOLOG] 3 ML PEN SC ×6 (08:20→20:25)
[2018-05-17] MEDS: POVIDONE IODINE 10% 28.4 GM OINT TOP ×2 (08:21→20:24)
[2018-05-17] MEDS: SODIUM HYPOCHLORITE (1/40) 1 APPLIC BTL IRR ×2 (08:21→20:24)
[2018-05-17] MEDS: DIPHENHYDRAMINE 25 MG CAP PO (14:41)
[2018-05-18] MEDS: ACCU-CHEK XX (02:00)
[2018-05-18] MEDS: INSULIN ASPART [NOVOLOG] 3 ML PEN SC ×7 (02:38→17:22)
[2018-05-18 04:08] LABS: VANCOMYCIN,TROUGH 14.5 ug/ml (10.0-20.0)
[2018-05-18] MEDS: HYDROmorphONE 1 MG/ML SYG IV ×2 (04:30→10:10)
[2018-05-18] MEDS: VANCOMYCIN 1.5 GM in SOD CHLORIDE 0.9% 250 ML IVPB ×2 (04:32→15:57)
[2018-05-18] MEDS: hydrOXYzine HCL 25 MG TAB PO (04:36)
[2018-05-18] MEDS: PANTOPRAZOLE (EC) 40 MG TAB PO (05:59)
[2018-05-18] MEDS: traMADol 50 MG TAB PO ×2 (06:01→15:00)
[2018-05-18] MEDS: CIPROFLOXACIN 500 MG TAB PO ×2 (06:01→17:18)
[2018-05-18] MEDS: INSULIN GLARGINE [LANtus] 3 ML PEN SC (08:27)
[2018-05-18] MEDS: SODIUM HYPOCHLORITE (1/40) 1 APPLIC BTL IRR (08:48)
[2018-05-18] MEDS: POVIDONE IODINE 10% 28.4 GM OINT TOP (08:48)
[2018-05-18] MEDS: ASCORBIC ACID 500 MG TAB PO (09:00)
[2018-05-18] MEDS: TERBINAFINE 250 MG TAB PO (09:00)
[2018-05-18] MEDS: HEPARIN 5,000 UNIT/0.5 ML VIAL SC (09:00)
[2018-05-18] MEDS: HYDROmorphONE 0.5 MG/0.5 ML SYG IV (16:04)
== END 2018-05-18 18:13 | DRG 872 ==
LOC: PP2 05-10 15:27 → E/R 20:37 → PP2 23:09
PROC: 02HV33Z Insertion of Infusion Device into Superior Vena Cava, Percutaneous Approach (ICD-10-PCS; principal; 2018-05-15)
DX: A41.9 Sepsis, unspecified organism (principal); L97.419 Non-pressure chronic ulcer of right heel and midfoot with unspecified severity; L03.115 Cellulitis of right lower limb; M86.9 Osteomyelitis, unspecified; B95.2 Enterococcus as the cause of diseases classified elsewhere; B95.8 Unspecified staphylococcus as the cause of diseases classified elsewhere; D63.8 Anemia in other chronic diseases classified elsewhere; B95.1 Streptococcus, group B, as the cause of diseases classified elsewhere; B96.1 Klebsiella pneumoniae [K. pneumoniae] as the cause of diseases classified elsewhere; B96.5 Pseudomonas (aeruginosa) (mallei) (pseudomallei) as the cause of diseases classified elsewhere; E11.69 Type 2 diabetes mellitus with other specified complication; E11.40 Type 2 diabetes mellitus with diabetic neuropathy, unspecified
CPT/HCPCS: 36415; 36569; 71045; 73630; 76937; 80048; 80053; 80061; 80202; 80307; 82947; 82962; 83036; 83605; 83735; 84100; 84484; 85025; 85610; 85730; 87040; 87070; 87081; 96374; 96375; 97161; 99291-25

== ENCOUNTER 2018-08-06 11:55 | Inpatient (IN) | payer OTHER ==
[2018-08-06] MEDS ORDERED: morphine 4 MG/ML VIAL IV (12:30)
[2018-08-06] MEDS: SODIUM CHLORIDE 0.9% 1L BAG IV* (12:30)
[2018-08-06] MEDS: HYDROmorphONE 2 MG/ML SYG IV (12:50)
[2018-08-06] MEDS: ONDANSETRON 4 MG INJ IV (12:50)
[2018-08-06 13:21] LABS: ADD MAN DIFF? NO
[2018-08-06 13:26] LABS: WHITE BLOOD COUNT 13.3 10^3/ul (4.8-10.8)
[2018-08-06 13:26] LABS: BASOPHIL # 0.1 10^3/ul (0.0-0.1); BASOPHILS % 0.5 % (0.0-2.0); EOSINOPHILS # 0.2 10^3/ul (0.0-0.5); EOSINOPHILS % 1.7 % (0.0-7.0); HEMATOCRIT 36.1 % (42.0-52.0); HEMOGLOBIN 11.9 g/dl (14.0-18.0); LYMPHOCYTES # 1.5 10^3/ul (0.8-2.9); LYMPHOCYTES % 11.5 % (15.0-51.0); MEAN CORPUSCULAR HEMOGLOBIN 26.9 pg (29.0-33.0); MEAN CORPUSCULAR VOLUME 81.7 fl (82.0-101.0); MEAN PLATELET VOLUME 9.3 fl (7.4-10.4); MONOCYTE # 0.8 10^3/ul (0.3-0.9); MONOCYTES % 6.3 % (0.0-11.0); NEUTROPHIL # 10.5 10^3/ul (1.6-7.5); NEUTROPHILS % 79.2 % (39.0-77.0); PLATELET COUNT 456 10^3/UL (140-415); RED BLOOD COUNT 4.42 10^6/ul (4.70-6.10); RED CELL DISTRIBUTION WIDTH 13.6 % (11.5-14.5)
[2018-08-06 13:44] LABS: INR 1.03; PARTIAL THROMBOPLASTIN TIME 40.9 Sec (23.0-35.0); PROTIME 13.6 Sec (11.9-14.9); PT RATIO 1.1
[2018-08-06] MEDS: CLINDAMYCIN 900 MG/D5W (PMX) 50 ML IVPB (13:45)
[2018-08-06 13:48] LABS: ADD UMIC NO; UR ASCORBIC ACID NEGATIVE (NEGATIVE); UR BILIRUBIN (Dip) NEGATIVE (NEGATIVE); UR BLOOD (Dip) NEGATIVE (NEGATIVE); UR CLARITY CLEAR (CLEAR); UR COLOR STRAW (YELLOW); UR GLUCOSE (Dip) 3+ mg/dL (NEGATIVE); UR KETONES (Dip) TRACE mg/dL (NEGATIVE); UR LEUKOCYTE ESTERASE (Dip) NEGATIVE Leu/ul (NEGATIVE); UR NITRITE (Dip) NEGATIVE (NEGATIVE); UR SPECIFIC GRAVITY (Dip) 1.025 (1.003-1.030); UR TOTAL PROTEIN (Dip) NEGATIVE (NEGATIVE); UR UROBILINOGEN (Dip) NEGATIVE (NEGATIVE)
[2018-08-06 14:18] LABS: HEMOGLOBIN A1C 10.3 % (0-5.9)
[2018-08-06 14:30] LABS: LACTIC ACID 0.8 mmol/L (0.5-2.0)
[2018-08-06] MEDS ORDERED: ACETAMINOPHEN 325 MG TAB PO (14:30)
[2018-08-06] MEDS ORDERED: ONDANSETRON 4 MG INJ IV (14:30)
[2018-08-06 14:42] LABS: ALANINE AMINOTRANSFERASE 30 IU/L (13-69); ALBUMIN 2.7 g/dl (3.3-4.9); ALBUMIN/GLOBULIN RATIO 0.81; ALKALINE PHOSPHATASE 138 IU/L (42-121); ANION GAP 15 (8-16); ASPARTATE AMINO TRANSFERASE 13 IU/L (15-46); BILIRUBIN,INDIRECT 0.2 mg/dl (0-1.1); BILIRUBIN,TOTAL 0.2 mg/dl (0.2-1.3); BLOOD UREA NITROGEN 17 mg/dl (7-20); CALCIUM 8.6 mg/dl (8.4-10.2); CARBON DIOXIDE 26 mmol/L (21-31); CHLORIDE 95 mmol/L (97-110); LIPASE 12 U/L (23-300); SODIUM 131 mmol/L (135-144)
[2018-08-06 14:44] LABS: AMYLASE < 30 U/L (11-123); GLUCOSE 527 mg/dl (70-220)
[2018-08-06] MEDS: DIPHENHYDRAMINE 50 MG INJ IV (14:50)
[2018-08-06] MEDS: VANCOMYCIN 1 GM (PMX) 250 ML IVPB (14:51)
[2018-08-06 14:53] LABS: TROPONIN-I < 0.012 ng/ml (0.000-0.120)
[2018-08-06] MEDS: INSULIN LISPRO 100 UNIT/ML VIAL SC (14:58)
[2018-08-06] MEDS ORDERED: GLUCAGON 1 MG INJ IM (15:00)
[2018-08-06] MEDS ORDERED: DEXTROSE 50% 50 ML SYRINGE IV ×2 (15:00)
[2018-08-06] MEDS ORDERED: VANCOMYCIN IV PER PHARMACY XX (15:00)
[2018-08-06] MEDS ORDERED: GLUCOSE GEL 15 GRAM TUBE PO (15:00)
[2018-08-06] MEDS ORDERED: NACL 0.9% 3 ML SYG IV (15:00)
[2018-08-06] MEDS ORDERED: GLUCOSE GEL 15 GRAM TUBE BUCCAL (15:00)
[2018-08-06] MEDS: MEROPENEM 1 GM/50ML(PMX) 50 ML IVPB (17:46)
[2018-08-06] MEDS: INSULIN ASPART [NOVOLOG] 3 ML PEN SC ×3 (17:56→21:00)
[2018-08-06] MEDS ORDERED: PIPER-TAZO 3.375 GM IV (PMX) 100 ML IVPB (18:00)
[2018-08-06] MEDS: VANCOMYCIN 1.5 GM in SOD CHLORIDE 0.9% 250 ML IVPB (21:54)
[2018-08-06] MEDS: INSULIN GLARGINE [LANTus] (100 UNITS/ML) SYG SC (22:00)
[2018-08-07] MEDS: HYDROCODONE/APAP (5/325) TAB PO ×3 (02:56→20:34)
[2018-08-07] MEDS: MEROPENEM 1 GM/50ML(PMX) 50 ML IVPB ×3 (02:56→17:45)
[2018-08-07 05:54] LABS: ADD MAN DIFF? NO
[2018-08-07 05:58] LABS: BASOPHIL # 0.1 10^3/ul (0.0-0.1); BASOPHILS % 0.6 % (0.0-2.0); EOSINOPHILS # 0.4 10^3/ul (0.0-0.5); EOSINOPHILS % 4.8 % (0.0-7.0); HEMATOCRIT 38.4 % (42.0-52.0); HEMOGLOBIN 12.2 g/dl (14.0-18.0); LYMPHOCYTES # 1.3 10^3/ul (0.8-2.9); LYMPHOCYTES % 15.4 % (15.0-51.0); MEAN CORPUSCULAR HEMOGLOBIN 26.2 pg (29.0-33.0); MEAN CORPUSCULAR HGB CONC 31.8 g/dl (32.0-37.0); MEAN CORPUSCULAR VOLUME 82.4 fl (82.0-101.0); MEAN PLATELET VOLUME 8.5 fl (7.4-10.4); MONOCYTE # 0.7 10^3/ul (0.3-0.9); MONOCYTES % 8.6 % (0.0-11.0); NEUTROPHIL # 5.8 10^3/ul (1.6-7.5); NEUTROPHILS % 69.6 % (39.0-77.0); PLATELET COUNT 509 10^3/UL (140-415); RED BLOOD COUNT 4.66 10^6/ul (4.70-6.10); RED CELL DISTRIBUTION WIDTH 13.7 % (11.5-14.5)
[2018-08-07 05:58] LABS: WHITE BLOOD COUNT 8.3 10^3/ul (4.8-10.8)
[2018-08-07 06:21] LABS: ALANINE AMINOTRANSFERASE 13 IU/L (13-69); ALBUMIN 3.3 g/dl (3.3-4.9); ALBUMIN/GLOBULIN RATIO 0.86; ALKALINE PHOSPHATASE 129 IU/L (42-121); ANION GAP 12 (8-16); ASPARTATE AMINO TRANSFERASE 13 IU/L (15-46); BILIRUBIN,INDIRECT 0.2 mg/dl (0-1.1); BILIRUBIN,TOTAL 0.2 mg/dl (0.2-1.3); BLOOD UREA NITROGEN 13 mg/dl (7-20); CARBON DIOXIDE 30 mmol/L (21-31); CHLORIDE 101 mmol/L (97-110); CREATININE 0.69 mg/dl (0.61-1.24); SODIUM 139 mmol/L (135-144); TOTAL PROTEIN 7.1 g/dl (6.1-8.1)
[2018-08-07 07:02] LABS: GLUCOSE 47 mg/dl (70-220)
[2018-08-07] MEDS: INSULIN ASPART [NOVOLOG] 3 ML PEN SC ×7 (08:00→20:32)
[2018-08-07] MEDS: VANCOMYCIN 1.5 GM in SOD CHLORIDE 0.9% 250 ML IVPB ×2 (08:07→20:33)
[2018-08-07] MEDS: ENOXAPARIN 30 MG/0.3 ML SYG SC (08:08)
[2018-08-07] MEDS: morphine 2 MG INJ IV (17:40)
[2018-08-07] MEDS: DIPHENHYDRAMINE 50 MG INJ IV (20:34)
[2018-08-07] MEDS: INSULIN GLARGINE [LANTus] (100 UNITS/ML) SYG SC (20:39)
[2018-08-08] MEDS: MEROPENEM 1 GM/50ML(PMX) 50 ML IVPB ×3 (02:50→17:43)
[2018-08-08] MEDS: HYDROCODONE/APAP (5/325) TAB PO (07:23)
[2018-08-08] MEDS: INSULIN ASPART [NOVOLOG] 3 ML PEN SC ×7 (07:47→20:10)
[2018-08-08] MEDS: ENOXAPARIN 30 MG/0.3 ML SYG SC (09:48)
[2018-08-08] MEDS: VANCOMYCIN 1.5 GM in SOD CHLORIDE 0.9% 250 ML IVPB ×2 (10:40→21:45)
[2018-08-08] MEDS: SOD CHLORIDE 0.9% 100 ML (12:56)
[2018-08-08] MEDS: IOHEXOL 300MG/ML 150 ML BTL (12:57)
[2018-08-08] MEDS: morphine 2 MG INJ IV (15:33)
[2018-08-08] MEDS: INSULIN GLARGINE [LANTus] (100 UNITS/ML) SYG SC (20:11)
[2018-08-09] MEDS: MEROPENEM 1 GM/50ML(PMX) 50 ML IVPB ×2 (02:03→11:31)
[2018-08-09] MEDS: HYDROCODONE/APAP (5/325) TAB PO ×2 (06:01→17:14)
[2018-08-09 07:30] LABS: BLOOD UREA NITROGEN 17 mg/dl (7-20)
[2018-08-09 07:30] LABS: CREATININE 0.74 mg/dl (0.61-1.24)
[2018-08-09] MEDS: INSULIN ASPART [NOVOLOG] 3 ML PEN SC ×7 (08:12→20:23)
[2018-08-09] MEDS: VANCOMYCIN 1.5 GM in SOD CHLORIDE 0.9% 250 ML IVPB ×2 (08:22→21:45)
[2018-08-09] MEDS: ENOXAPARIN 30 MG/0.3 ML SYG SC (08:30)
[2018-08-09] MEDS: SODIUM HYPOCHLORITE (1/40) 1 APPLIC BTL IRR (08:33)
[2018-08-09] MEDS: morphine 2 MG INJ IV ×2 (10:51→20:33)
[2018-08-09] MEDS: CIPROFLOXACIN 250 MG TAB PO (17:22)
[2018-08-09] MEDS: INSULIN GLARGINE [LANTus] (100 UNITS/ML) SYG SC (20:24)
[2018-08-10] MEDS: INSULIN ASPART [NOVOLOG] 3 ML PEN SC ×8 (02:31→21:00)
[2018-08-10] MEDS: CIPROFLOXACIN 250 MG TAB PO ×2 (05:27→17:34)
[2018-08-10] MEDS: HYDROCODONE/APAP (5/325) TAB PO ×2 (07:06→17:45)
[2018-08-10] MEDS: ENOXAPARIN 30 MG/0.3 ML SYG SC (08:20)
[2018-08-10] MEDS: morphine 2 MG INJ IV ×2 (09:28→21:26)
[2018-08-10] MEDS: SODIUM HYPOCHLORITE (1/40) 1 APPLIC BTL IRR (09:32)
[2018-08-10] MEDS: VANCOMYCIN 1.5 GM in SOD CHLORIDE 0.9% 250 ML IVPB ×2 (11:16→21:03)
[2018-08-10] MEDS: metFORMIN 500 MG TAB NGT (17:34)
[2018-08-10] MEDS: INSULIN GLARGINE [LANTus] (100 UNITS/ML) SYG SC (21:03)
[2018-08-10] MEDS: ACCU-CHEK XX (22:23)
[2018-08-11] MEDS: CIPROFLOXACIN 250 MG TAB PO ×2 (05:31→17:20)
[2018-08-11] MEDS: HYDROCODONE/APAP (5/325) TAB PO ×2 (05:33→18:42)
[2018-08-11] MEDS: KETOROLAC 15 MG INJ IV ×2 (08:25→16:28)
[2018-08-11] MEDS: metFORMIN 500 MG TAB NGT ×2 (08:26→17:20)
[2018-08-11] MEDS: ENOXAPARIN 30 MG/0.3 ML SYG SC (08:28)
[2018-08-11] MEDS: INSULIN ASPART [NOVOLOG] 3 ML PEN SC ×7 (08:29→20:29)
[2018-08-11] MEDS: VANCOMYCIN 1.5 GM in SOD CHLORIDE 0.9% 250 ML IVPB ×2 (08:38→20:31)
[2018-08-11] MEDS: SODIUM HYPOCHLORITE (1/40) 1 APPLIC BTL IRR (08:38)
[2018-08-11] MEDS: morphine 2 MG INJ IV (10:24)
[2018-08-11] MEDS: LIDOCAINE 1% (MPF) 5 ML VIAL SC (13:05)
[2018-08-11] MEDS: INSULIN GLARGINE [LANTus] (100 UNITS/ML) SYG SC (20:30)
[2018-08-11] MEDS: ATORVASTATIN 20 MG TAB PO (20:31)
[2018-08-11] MEDS: DIPHENHYDRAMINE 50 MG INJ IV (20:33)
[2018-08-11] MEDS: ACCU-CHEK XX (23:21)
[2018-08-12] MEDS: morphine 2 MG INJ IV ×2 (03:36→19:47)
[2018-08-12] MEDS: CIPROFLOXACIN 250 MG TAB PO ×2 (05:16→17:03)
[2018-08-12 05:37] LABS: CREATININE 0.87 mg/dl (0.61-1.24)
[2018-08-12 05:37] LABS: BLOOD UREA NITROGEN 31 mg/dl (7-20)
[2018-08-12] MEDS: metFORMIN 500 MG TAB NGT ×3 (08:00→17:03)
[2018-08-12] MEDS: INSULIN ASPART [NOVOLOG] 3 ML PEN SC ×7 (08:05→20:55)
[2018-08-12] MEDS: ENOXAPARIN 30 MG/0.3 ML SYG SC (08:06)
[2018-08-12] MEDS: VANCOMYCIN 1.5 GM in SOD CHLORIDE 0.9% 250 ML IVPB ×2 (08:07→20:59)
[2018-08-12] MEDS: DIPHENHYDRAMINE 50 MG INJ IV ×2 (08:13→21:06)
[2018-08-12] MEDS: SODIUM HYPOCHLORITE (1/40) 1 APPLIC BTL IRR (08:17)
[2018-08-12] MEDS: HYDROCODONE/APAP (5/325) TAB PO (13:30)
[2018-08-12] MEDS: ATORVASTATIN 20 MG TAB PO (20:58)
[2018-08-12] MEDS: INSULIN GLARGINE [LANTus] (100 UNITS/ML) SYG SC (21:00)
[2018-08-13] MEDS: ACCU-CHEK XX (02:00)
[2018-08-13] MEDS: CIPROFLOXACIN 250 MG TAB PO ×2 (06:06→18:22)
[2018-08-13] MEDS: morphine 2 MG INJ IV ×2 (07:27→20:00)
[2018-08-13] MEDS: metFORMIN 500 MG TAB NGT ×2 (07:47→17:12)
[2018-08-13] MEDS: INSULIN ASPART [NOVOLOG] 3 ML PEN SC ×7 (07:49→21:24)
[2018-08-13 08:38] LABS: ANION GAP 13 (8-16); BLOOD UREA NITROGEN 20 mg/dl (7-20); CALCIUM 9.1 mg/dl (8.4-10.2); CARBON DIOXIDE 29 mmol/L (21-31); CHLORIDE 101 mmol/L (97-110); CREATININE 0.75 mg/dl (0.61-1.24); GLUCOSE 246 mg/dl (70-220); MAGNESIUM 1.8 mg/dl (1.7-2.5); SODIUM 139 mmol/L (135-144)
[2018-08-13 08:41] LABS: VANCOMYCIN,TROUGH 15.5 ug/ml (10.0-20.0)
[2018-08-13] MEDS: ENOXAPARIN 30 MG/0.3 ML SYG SC (09:19)
[2018-08-13] MEDS: DIPHENHYDRAMINE 50 MG INJ IV ×2 (09:22→21:09)
[2018-08-13] MEDS: VANCOMYCIN 1.5 GM in SOD CHLORIDE 0.9% 250 ML IVPB ×2 (09:22→21:09)
[2018-08-13] MEDS: HYDROCODONE/APAP (5/325) TAB PO ×2 (11:14→18:24)
[2018-08-13] MEDS: SODIUM HYPOCHLORITE (1/40) 1 APPLIC BTL IRR (17:16)
[2018-08-13] MEDS: INSULIN GLARGINE [LANTus] (100 UNITS/ML) SYG SC (20:09)
[2018-08-13] MEDS: ATORVASTATIN 20 MG TAB PO (21:09)
[2018-08-14] MEDS: ACCU-CHEK XX (02:00)
[2018-08-14] MEDS: CIPROFLOXACIN 250 MG TAB PO ×2 (05:43→17:31)
[2018-08-14] MEDS: DIPHENHYDRAMINE 50 MG INJ IV ×2 (05:45→20:32)
[2018-08-14] MEDS: INSULIN ASPART [NOVOLOG] 3 ML PEN SC ×7 (08:00→20:31)
[2018-08-14] MEDS: metFORMIN 500 MG TAB NGT ×2 (08:18→17:31)
[2018-08-14] MEDS: ENOXAPARIN 30 MG/0.3 ML SYG SC (08:21)
[2018-08-14] MEDS: VANCOMYCIN 1.5 GM in SOD CHLORIDE 0.9% 250 ML IVPB ×2 (08:21→20:26)
[2018-08-14] MEDS: morphine 2 MG INJ IV ×2 (08:22→20:33)
[2018-08-14] MEDS: SODIUM HYPOCHLORITE (1/40) 1 APPLIC BTL IRR (08:28)
[2018-08-14] MEDS: HYDROCODONE/APAP (5/325) TAB PO ×2 (11:41→19:07)
[2018-08-14] MEDS: ATORVASTATIN 20 MG TAB PO (20:26)
[2018-08-14] MEDS: INSULIN GLARGINE [LANTus] (100 UNITS/ML) SYG SC (20:31)
[2018-08-15] MEDS: HYDROCODONE/APAP (5/325) TAB PO ×2 (01:23→16:18)
[2018-08-15] MEDS: ACCU-CHEK XX (01:24)
[2018-08-15 04:59] LABS: ADD MAN DIFF? NO
[2018-08-15 05:04] LABS: BASOPHIL # 0.1 10^3/ul (0.0-0.1); BASOPHILS % 1.6 % (0.0-2.0); EOSINOPHILS # 0.4 10^3/ul (0.0-0.5); EOSINOPHILS % 6.2 % (0.0-7.0); HEMATOCRIT 38.4 % (42.0-52.0); HEMOGLOBIN 12.4 g/dl (14.0-18.0); LYMPHOCYTES # 2.2 10^3/ul (0.8-2.9); LYMPHOCYTES % 35.6 % (15.0-51.0); MEAN CORPUSCULAR HEMOGLOBIN 26.8 pg (29.0-33.0); MEAN CORPUSCULAR HGB CONC 32.3 g/dl (32.0-37.0); MEAN CORPUSCULAR VOLUME 83.1 fl (82.0-101.0); MEAN PLATELET VOLUME 8.8 fl (7.4-10.4); MONOCYTE # 0.4 10^3/ul (0.3-0.9); MONOCYTES % 7.2 % (0.0-11.0); NEUTROPHILS % 48.7 % (39.0-77.0); PLATELET COUNT 572 10^3/UL (140-415); RED BLOOD COUNT 4.62 10^6/ul (4.70-6.10); RED CELL DISTRIBUTION WIDTH 13.6 % (11.5-14.5)
[2018-08-15 05:04] LABS: WHITE BLOOD COUNT 6.1 10^3/ul (4.8-10.8)
[2018-08-15 05:29] LABS: ANION GAP 11 (8-16); BLOOD UREA NITROGEN 22 mg/dl (7-20); CALCIUM 9.3 mg/dl (8.4-10.2); CARBON DIOXIDE 30 mmol/L (21-31); CHLORIDE 101 mmol/L (97-110); CREATININE 0.86 mg/dl (0.61-1.24); GLUCOSE 220 mg/dl (70-220); MAGNESIUM 1.8 mg/dl (1.7-2.5); PHOSPHORUS 4.6 mg/dl (2.5-4.9); POTASSIUM 3.9 mmol/L (3.5-5.1); SODIUM 138 mmol/L (135-144)
[2018-08-15] MEDS: CIPROFLOXACIN 250 MG TAB PO ×2 (05:36→17:30)
[2018-08-15] MEDS: DIPHENHYDRAMINE 50 MG INJ IV ×2 (05:37→21:28)
[2018-08-15] MEDS: INSULIN ASPART [NOVOLOG] 3 ML PEN SC ×7 (08:00→21:00)
[2018-08-15] MEDS: VANCOMYCIN 1.5 GM in SOD CHLORIDE 0.9% 250 ML IVPB ×2 (08:28→21:28)
[2018-08-15] MEDS: metFORMIN 500 MG TAB NGT (08:28)
[2018-08-15] MEDS: ENOXAPARIN 30 MG/0.3 ML SYG SC (08:33)
[2018-08-15] MEDS: morphine 2 MG INJ IV ×2 (08:34→20:33)
[2018-08-15] MEDS: SODIUM HYPOCHLORITE (1/40) 1 APPLIC BTL IRR (08:43)
[2018-08-15] MEDS: LINAGLIPTIN 5 MG TABLET PO (16:18)
[2018-08-15] MEDS: metFORMIN 500 MG TAB PO (17:30)
[2018-08-15] MEDS: INSULIN GLARGINE [LANTus] (100 UNITS/ML) SYG SC (20:14)
[2018-08-15] MEDS: ATORVASTATIN 20 MG TAB PO (21:28)
[2018-08-16] MEDS: ACCU-CHEK XX (02:00)
[2018-08-16] MEDS: CIPROFLOXACIN 250 MG TAB PO ×2 (05:46→17:02)
[2018-08-16] MEDS: DIPHENHYDRAMINE 50 MG INJ IV ×2 (05:56→21:32)
[2018-08-16 06:41] LABS: ADD MAN DIFF? NO
[2018-08-16 06:48] LABS: BASOPHIL # 0.1 10^3/ul (0.0-0.1); BASOPHILS % 1.6 % (0.0-2.0); EOSINOPHILS # 0.4 10^3/ul (0.0-0.5); EOSINOPHILS % 7.6 % (0.0-7.0); HEMATOCRIT 40.5 % (42.0-52.0); HEMOGLOBIN 12.8 g/dl (14.0-18.0); LYMPHOCYTES # 2.3 10^3/ul (0.8-2.9); LYMPHOCYTES % 39.4 % (15.0-51.0); MEAN CORPUSCULAR HEMOGLOBIN 26.3 pg (29.0-33.0); MEAN CORPUSCULAR HGB CONC 31.6 g/dl (32.0-37.0); MEAN CORPUSCULAR VOLUME 83.2 fl (82.0-101.0); MEAN PLATELET VOLUME 8.9 fl (7.4-10.4); MONOCYTE # 0.4 10^3/ul (0.3-0.9); MONOCYTES % 7.6 % (0.0-11.0); NEUTROPHIL # 2.5 10^3/ul (1.6-7.5); NEUTROPHILS % 43.1 % (39.0-77.0); PLATELET COUNT 601 10^3/UL (140-415); RED BLOOD COUNT 4.87 10^6/ul (4.70-6.10); RED CELL DISTRIBUTION WIDTH 13.6 % (11.5-14.5)
[2018-08-16 06:48] LABS: WHITE BLOOD COUNT 5.8 10^3/ul (4.8-10.8)
[2018-08-16 07:32] LABS: ANION GAP 13 (8-16); BLOOD UREA NITROGEN 26 mg/dl (7-20); CALCIUM 9.6 mg/dl (8.4-10.2); CARBON DIOXIDE 29 mmol/L (21-31); CHLORIDE 101 mmol/L (97-110); CREATININE 1.01 mg/dl (0.61-1.24); GLUCOSE 117 mg/dl (70-220); MAGNESIUM 1.8 mg/dl (1.7-2.5); PHOSPHORUS 5.1 mg/dl (2.5-4.9); POTASSIUM 3.8 mmol/L (3.5-5.1); SODIUM 139 mmol/L (135-144)
[2018-08-16] MEDS: INSULIN ASPART [NOVOLOG] 3 ML PEN SC ×7 (08:00→21:00)
[2018-08-16] MEDS: metFORMIN 500 MG TAB PO ×2 (08:11→17:13)
[2018-08-16] MEDS: morphine LIQ (10 MG/5 ML) CUP PO ×2 (08:38→20:55)
[2018-08-16] MEDS: ENOXAPARIN 30 MG/0.3 ML SYG SC ×2 (08:39→08:47)
[2018-08-16] MEDS: LINAGLIPTIN 5 MG TABLET PO (08:39)
[2018-08-16] MEDS: SODIUM HYPOCHLORITE (1/40) 1 APPLIC BTL IRR (08:40)
[2018-08-16] MEDS: VANCOMYCIN 1.5 GM in SOD CHLORIDE 0.9% 250 ML IVPB ×2 (08:59→21:30)
[2018-08-16] MEDS: HYDROCODONE/APAP (5/325) TAB PO ×2 (09:52→16:59)
[2018-08-16] MEDS: ATORVASTATIN 20 MG TAB PO (20:22)
[2018-08-16 20:47] LABS: VANCOMYCIN,TROUGH 16.5 ug/ml (10.0-20.0)
[2018-08-16] MEDS: INSULIN GLARGINE [LANTus] (100 UNITS/ML) SYG SC (21:36)
[2018-08-17] MEDS: ACCU-CHEK XX (01:10)
[2018-08-17] MEDS: DIPHENHYDRAMINE 50 MG INJ IV ×3 (05:46→21:23)
[2018-08-17] MEDS: CIPROFLOXACIN 250 MG TAB PO ×2 (05:46→17:31)
[2018-08-17 06:58] LABS: ADD MAN DIFF? NO
[2018-08-17 06:59] LABS: BASOPHIL # 0.1 10^3/ul (0.0-0.1); BASOPHILS % 1.2 % (0.0-2.0); EOSINOPHILS # 0.4 10^3/ul (0.0-0.5); EOSINOPHILS % 4.9 % (0.0-7.0); HEMATOCRIT 39.1 % (42.0-52.0); HEMOGLOBIN 12.5 g/dl (14.0-18.0); LYMPHOCYTES # 2.1 10^3/ul (0.8-2.9); LYMPHOCYTES % 24.9 % (15.0-51.0); MEAN CORPUSCULAR HEMOGLOBIN 26.7 pg (29.0-33.0); MEAN CORPUSCULAR VOLUME 83.5 fl (82.0-101.0); MEAN PLATELET VOLUME 9.5 fl (7.4-10.4); MONOCYTE # 0.5 10^3/ul (0.3-0.9); MONOCYTES % 5.8 % (0.0-11.0); NEUTROPHIL # 5.3 10^3/ul (1.6-7.5); NEUTROPHILS % 62.4 % (39.0-77.0); PLATELET COUNT 544 10^3/UL (140-415); RED BLOOD COUNT 4.68 10^6/ul (4.70-6.10); RED CELL DISTRIBUTION WIDTH 13.8 % (11.5-14.5)
[2018-08-17 06:59] LABS: WHITE BLOOD COUNT 8.5 10^3/ul (4.8-10.8)
[2018-08-17 07:34] LABS: ANION GAP 12 (8-16); BLOOD UREA NITROGEN 26 mg/dl (7-20); CALCIUM 9.3 mg/dl (8.4-10.2); CARBON DIOXIDE 28 mmol/L (21-31); CHLORIDE 99 mmol/L (97-110); CREATININE 0.91 mg/dl (0.61-1.24); GLUCOSE 364 mg/dl (70-220); MAGNESIUM 1.7 mg/dl (1.7-2.5); PHOSPHORUS 3.4 mg/dl (2.5-4.9); POTASSIUM 4.4 mmol/L (3.5-5.1); SODIUM 135 mmol/L (135-144)
[2018-08-17] MEDS: metFORMIN 500 MG TAB PO ×2 (09:00→17:31)
[2018-08-17] MEDS: SODIUM HYPOCHLORITE (1/40) 1 APPLIC BTL IRR (09:00)
[2018-08-17] MEDS: morphine LIQ (10 MG/5 ML) CUP PO ×2 (09:00→21:21)
[2018-08-17] MEDS: ENOXAPARIN 30 MG/0.3 ML SYG SC (09:00)
[2018-08-17] MEDS: INSULIN ASPART [NOVOLOG] 3 ML PEN SC ×7 (09:03→20:50)
[2018-08-17] MEDS: VANCOMYCIN 1.5 GM in SOD CHLORIDE 0.9% 250 ML IVPB ×2 (11:02→21:25)
[2018-08-17] MEDS: LINAGLIPTIN 5 MG TABLET PO (11:05)
[2018-08-17] MEDS: HYDROCODONE/APAP (5/325) TAB PO (17:39)
[2018-08-17] MEDS: INSULIN GLARGINE [LANTus] (100 UNITS/ML) SYG SC (20:51)
[2018-08-17] MEDS: ATORVASTATIN 20 MG TAB PO (20:54)
[2018-08-18] MEDS: ACCU-CHEK XX (02:00)
[2018-08-18] MEDS: HYDROCODONE/APAP (5/325) TAB PO ×3 (05:37→18:20)
[2018-08-18] MEDS: CIPROFLOXACIN 250 MG TAB PO ×2 (06:21→18:16)
[2018-08-18] MEDS: metFORMIN 500 MG TAB PO ×2 (07:57→17:10)
[2018-08-18] MEDS: LINAGLIPTIN 5 MG TABLET PO (07:57)
[2018-08-18] MEDS: INSULIN ASPART [NOVOLOG] 3 ML PEN SC ×7 (07:58→20:36)
[2018-08-18] MEDS: ENOXAPARIN 30 MG/0.3 ML SYG SC (07:59)
[2018-08-18] MEDS: SODIUM HYPOCHLORITE (1/40) 1 APPLIC BTL IRR (09:00)
[2018-08-18] MEDS: DIPHENHYDRAMINE 50 MG INJ IV ×2 (09:20→20:34)
[2018-08-18] MEDS: morphine LIQ (10 MG/5 ML) CUP PO ×2 (09:20→22:18)
[2018-08-18] MEDS: VANCOMYCIN 1.5 GM in SOD CHLORIDE 0.9% 250 ML IVPB ×2 (09:20→20:37)
[2018-08-18] MEDS: ATORVASTATIN 20 MG TAB PO (20:33)
[2018-08-18] MEDS: INSULIN GLARGINE [LANTus] (100 UNITS/ML) SYG SC (20:37)
[2018-08-19] MEDS: ACCU-CHEK XX (01:57)
[2018-08-19] MEDS: INSULIN ASPART [NOVOLOG] 3 ML PEN SC ×8 (02:20→21:00)
[2018-08-19] MEDS: DIPHENHYDRAMINE 50 MG INJ IV ×2 (06:20→21:18)
[2018-08-19] MEDS: CIPROFLOXACIN 250 MG TAB PO ×2 (06:24→17:19)
[2018-08-19] MEDS: GLUCOSE GEL 15 GRAM TUBE PO (08:16)
[2018-08-19] MEDS: SODIUM HYPOCHLORITE (1/40) 1 APPLIC BTL IRR (08:26)
[2018-08-19] MEDS: VANCOMYCIN 1.5 GM in SOD CHLORIDE 0.9% 250 ML IVPB ×2 (08:29→21:18)
[2018-08-19] MEDS: ENOXAPARIN 30 MG/0.3 ML SYG SC (08:42)
[2018-08-19] MEDS: LINAGLIPTIN 5 MG TABLET PO ×2 (09:00→12:39)
[2018-08-19] MEDS: metFORMIN 500 MG TAB PO ×3 (09:29→17:20)
[2018-08-19] MEDS: HYDROCODONE/APAP (5/325) TAB PO (15:07)
[2018-08-19] MEDS: morphine LIQ (10 MG/5 ML) CUP PO (18:07)
[2018-08-19] MEDS: INSULIN GLARGINE [LANTus] (100 UNITS/ML) SYG SC (20:21)
[2018-08-19] MEDS: ATORVASTATIN 20 MG TAB PO (21:18)
[2018-08-20] MEDS: ACCU-CHEK XX (02:00)
[2018-08-20] MEDS: morphine LIQ (10 MG/5 ML) CUP PO ×2 (06:21→18:51)
[2018-08-20] MEDS: CIPROFLOXACIN 250 MG TAB PO ×2 (06:21→17:43)
[2018-08-20] MEDS: INSULIN ASPART [NOVOLOG] 3 ML PEN SC ×7 (08:00→21:00)
[2018-08-20 08:09] LABS: ADD MAN DIFF? NO
[2018-08-20 08:10] LABS: BASOPHIL # 0.1 10^3/ul (0.0-0.1); BASOPHILS % 1.4 % (0.0-2.0); EOSINOPHILS # 0.4 10^3/ul (0.0-0.5); EOSINOPHILS % 6.3 % (0.0-7.0); HEMATOCRIT 36.9 % (42.0-52.0); HEMOGLOBIN 11.9 g/dl (14.0-18.0); LYMPHOCYTES # 1.8 10^3/ul (0.8-2.9); LYMPHOCYTES % 25.4 % (15.0-51.0); MEAN CORPUSCULAR HGB CONC 32.2 g/dl (32.0-37.0); MEAN CORPUSCULAR VOLUME 83.7 fl (82.0-101.0); MONOCYTE # 0.4 10^3/ul (0.3-0.9); MONOCYTES % 6.2 % (0.0-11.0); NEUTROPHIL # 4.2 10^3/ul (1.6-7.5); NEUTROPHILS % 60.3 % (39.0-77.0); PLATELET COUNT 497 10^3/UL (140-415); RED BLOOD COUNT 4.41 10^6/ul (4.70-6.10); RED CELL DISTRIBUTION WIDTH 13.9 % (11.5-14.5)
[2018-08-20] MEDS: metFORMIN 500 MG TAB PO ×2 (08:12→17:43)
[2018-08-20] MEDS: VANCO TROUGH AT XX (08:18)
[2018-08-20 08:34] LABS: ANION GAP 11 (8-16); BLOOD UREA NITROGEN 18 mg/dl (7-20); CALCIUM 9.4 mg/dl (8.4-10.2); CARBON DIOXIDE 28 mmol/L (21-31); CHLORIDE 103 mmol/L (97-110); CREATININE 0.85 mg/dl (0.61-1.24); GLUCOSE 113 mg/dl (70-220); MAGNESIUM 1.7 mg/dl (1.7-2.5); PHOSPHORUS 4.4 mg/dl (2.5-4.9); POTASSIUM 3.9 mmol/L (3.5-5.1); SODIUM 138 mmol/L (135-144)
[2018-08-20 08:37] LABS: VANCOMYCIN,TROUGH 15.1 ug/ml (10.0-20.0)
[2018-08-20] MEDS: SODIUM HYPOCHLORITE (1/40) 1 APPLIC BTL IRR (09:00)
[2018-08-20] MEDS: ENOXAPARIN 30 MG/0.3 ML SYG SC (09:00)
[2018-08-20] MEDS: VANCOMYCIN 1.5 GM in SOD CHLORIDE 0.9% 250 ML IVPB ×2 (09:02→20:48)
[2018-08-20] MEDS: LINAGLIPTIN 5 MG TABLET PO (09:02)
[2018-08-20] MEDS: DIPHENHYDRAMINE 50 MG INJ IV ×2 (09:05→20:50)
[2018-08-20] MEDS: HYDROCODONE/APAP (5/325) TAB PO ×2 (14:45→21:03)
[2018-08-20] MEDS: ATORVASTATIN 20 MG TAB PO (20:49)
[2018-08-20] MEDS: INSULIN GLARGINE [LANTus] (100 UNITS/ML) SYG SC (21:53)
[2018-08-21] MEDS: ACCU-CHEK XX (01:43)
[2018-08-21] MEDS: CIPROFLOXACIN 250 MG TAB PO ×2 (05:58→17:37)
[2018-08-21] MEDS: morphine LIQ (10 MG/5 ML) CUP PO ×2 (08:01→19:02)
[2018-08-21] MEDS: INSULIN ASPART [NOVOLOG] 3 ML PEN SC ×7 (08:18→20:52)
[2018-08-21] MEDS: metFORMIN 500 MG TAB PO ×2 (08:21→17:37)
[2018-08-21] MEDS: LINAGLIPTIN 5 MG TABLET PO (08:23)
[2018-08-21] MEDS: SODIUM HYPOCHLORITE (1/40) 1 APPLIC BTL IRR (08:59)
[2018-08-21] MEDS: ENOXAPARIN 30 MG/0.3 ML SYG SC (09:00)
[2018-08-21] MEDS: INSULIN GLARGINE [LANTus] (100 UNITS/ML) SYG SC ×2 (09:14→20:52)
[2018-08-21] MEDS: VANCOMYCIN 1.5 GM in SOD CHLORIDE 0.9% 250 ML IVPB ×2 (09:16→20:52)
[2018-08-21] MEDS: DIPHENHYDRAMINE 50 MG INJ IV ×2 (09:19→20:58)
[2018-08-21] MEDS: HYDROCODONE/APAP (5/325) TAB PO ×2 (14:29→21:05)
[2018-08-21] MEDS: ATORVASTATIN 20 MG TAB PO (20:52)
[2018-08-22] MEDS: ACCU-CHEK XX (02:00)
[2018-08-22] MEDS: HYDROCODONE/APAP (5/325) TAB PO ×3 (04:52→20:50)
[2018-08-22] MEDS: CIPROFLOXACIN 250 MG TAB PO ×2 (06:17→17:36)
[2018-08-22 06:54] LABS: ADD MAN DIFF? NO
[2018-08-22 07:01] LABS: WHITE BLOOD COUNT 5.8 10^3/ul (4.8-10.8)
[2018-08-22 07:01] LABS: BASOPHIL # 0.1 10^3/ul (0.0-0.1); BASOPHILS % 1.7 % (0.0-2.0); EOSINOPHILS # 0.7 10^3/ul (0.0-0.5); EOSINOPHILS % 11.5 % (0.0-7.0); HEMATOCRIT 38.4 % (42.0-52.0); HEMOGLOBIN 12.3 g/dl (14.0-18.0); LYMPHOCYTES # 1.9 10^3/ul (0.8-2.9); LYMPHOCYTES % 33.3 % (15.0-51.0); MEAN CORPUSCULAR HEMOGLOBIN 26.7 pg (29.0-33.0); MEAN CORPUSCULAR VOLUME 83.3 fl (82.0-101.0); MEAN PLATELET VOLUME 10.2 fl (7.4-10.4); MONOCYTE # 0.5 10^3/ul (0.3-0.9); MONOCYTES % 8.2 % (0.0-11.0); NEUTROPHIL # 2.6 10^3/ul (1.6-7.5); PLATELET COUNT 400 10^3/UL (140-415); RED BLOOD COUNT 4.61 10^6/ul (4.70-6.10); RED CELL DISTRIBUTION WIDTH 13.9 % (11.5-14.5)
[2018-08-22 07:22] LABS: ALBUMIN 3.1 g/dl (3.3-4.9); ANION GAP 10 (8-16); BLOOD UREA NITROGEN 20 mg/dl (7-20); CALCIUM 9.3 mg/dl (8.4-10.2); CARBON DIOXIDE 29 mmol/L (21-31); CHLORIDE 101 mmol/L (97-110); GLUCOSE 252 mg/dl (70-220); MAGNESIUM 1.6 mg/dl (1.7-2.5); PHOSPHORUS 4.1 mg/dl (2.5-4.9); POTASSIUM 4.1 mmol/L (3.5-5.1); SODIUM 136 mmol/L (135-144)
[2018-08-22] MEDS: INSULIN ASPART [NOVOLOG] 3 ML PEN SC ×7 (08:18→20:27)
[2018-08-22] MEDS: LINAGLIPTIN 5 MG TABLET PO (08:19)
[2018-08-22] MEDS: metFORMIN 500 MG TAB PO ×2 (08:19→21:45)
[2018-08-22] MEDS: SODIUM HYPOCHLORITE (1/40) 1 APPLIC BTL IRR (08:21)
[2018-08-22] MEDS: ENOXAPARIN 30 MG/0.3 ML SYG SC (08:22)
[2018-08-22] MEDS: morphine LIQ (10 MG/5 ML) CUP PO ×2 (08:47→19:18)
[2018-08-22] MEDS: DIPHENHYDRAMINE 50 MG INJ IV ×2 (08:49→20:36)
[2018-08-22] MEDS: VANCOMYCIN 1.5 GM in SOD CHLORIDE 0.9% 250 ML IVPB ×2 (08:49→20:28)
[2018-08-22] MEDS: MAGNESIUM OXIDE 400 MG TAB PO (10:11)
[2018-08-22] MEDS: ATORVASTATIN 20 MG TAB PO (20:28)
[2018-08-22] MEDS: INSULIN GLARGINE [LANTus] (100 UNITS/ML) SYG SC (20:30)
[2018-08-23] MEDS: ACCU-CHEK XX (02:00)
[2018-08-23] MEDS: morphine LIQ (10 MG/5 ML) CUP PO ×2 (05:13→19:46)
[2018-08-23] MEDS: CIPROFLOXACIN 250 MG TAB PO ×2 (05:13→17:24)
[2018-08-23] MEDS: INSULIN ASPART [NOVOLOG] 3 ML PEN SC ×7 (08:00→21:34)
[2018-08-23] MEDS: LINAGLIPTIN 5 MG TABLET PO (08:14)
[2018-08-23] MEDS: metFORMIN 500 MG TAB PO ×2 (08:14→17:24)
[2018-08-23] MEDS: ENOXAPARIN 30 MG/0.3 ML SYG SC (08:14)
[2018-08-23] MEDS: SODIUM HYPOCHLORITE (1/40) 1 APPLIC BTL IRR (08:17)
[2018-08-23] MEDS: HYDROCODONE/APAP (5/325) TAB PO ×2 (08:21→17:43)
[2018-08-23 08:25] LABS: BLOOD UREA NITROGEN 18 mg/dl (7-20)
[2018-08-23 08:25] LABS: CREATININE 0.93 mg/dl (0.61-1.24)
[2018-08-23] MEDS: VANCOMYCIN 1.5 GM in SOD CHLORIDE 0.9% 250 ML IVPB ×2 (08:29→21:17)
[2018-08-23] MEDS: DIPHENHYDRAMINE 50 MG INJ IV ×2 (08:29→21:33)
[2018-08-23] MEDS: INSULIN GLARGINE [LANTus] (100 UNITS/ML) SYG SC (20:12)
[2018-08-23] MEDS: ATORVASTATIN 20 MG TAB PO (21:17)
[2018-08-24] MEDS: ACCU-CHEK XX (02:00)
[2018-08-24] MEDS: CIPROFLOXACIN 250 MG TAB PO ×2 (06:33→17:23)
[2018-08-24] MEDS: HYDROCODONE/APAP (5/325) TAB PO ×2 (06:33→14:26)
[2018-08-24] MEDS: INSULIN ASPART [NOVOLOG] 3 ML PEN SC ×6 (08:07→17:23)
[2018-08-24] MEDS: ENOXAPARIN 30 MG/0.3 ML SYG SC (08:11)
[2018-08-24] MEDS: metFORMIN 500 MG TAB PO ×2 (08:12→17:22)
[2018-08-24] MEDS: LINAGLIPTIN 5 MG TABLET PO (08:12)
[2018-08-24] MEDS: SODIUM HYPOCHLORITE (1/40) 1 APPLIC BTL IRR (08:14)
[2018-08-24] MEDS: VANCOMYCIN 1.5 GM in SOD CHLORIDE 0.9% 250 ML IVPB ×2 (08:15→16:43)
[2018-08-24] MEDS: DIPHENHYDRAMINE 50 MG INJ IV ×2 (08:17→16:51)
== END 2018-08-24 19:35 | disposition home health service (06) | DRG 982 ==
LOC: E/R 11:55 → PP2 14:20
PROVIDERS: Internal Medicine
PROC: 0KBV0ZZ Excision of Right Foot Muscle, Open Approach (ICD-10-PCS; principal; 2018-08-08)
PROC: 0J9Q0ZZ Drainage of Right Foot Subcutaneous Tissue and Fascia, Open Approach (ICD-10-PCS; 2018-08-08)
PROC: 02HV33Z Insertion of Infusion Device into Superior Vena Cava, Percutaneous Approach (ICD-10-PCS; 2018-08-11)
PROC: B548ZZA Ultrasonography of Superior Vena Cava, Guidance (ICD-10-PCS; 2018-08-11)
DX: E11.621 Type 2 diabetes mellitus with foot ulcer (principal); L03.115 Cellulitis of right lower limb; L02.611 Cutaneous abscess of right foot; M86.8X7 Other osteomyelitis, ankle and foot; R78.81 Bacteremia; E46 Unspecified protein-calorie malnutrition; L97.415 Non-pressure chronic ulcer of right heel and midfoot with muscle involvement without evidence of necrosis; M86.171 Other acute osteomyelitis, right ankle and foot; M86.671 Other chronic osteomyelitis, right ankle and foot; E11.65 Type 2 diabetes mellitus with hyperglycemia; E11.51 Type 2 diabetes mellitus with diabetic peripheral angiopathy without gangrene; F17.200 Nicotine dependence, unspecified, uncomplicated; I70.235 Atherosclerosis of native arteries of right leg with ulceration of other part of foot; E11.42 Type 2 diabetes mellitus with diabetic polyneuropathy; B95.61 Methicillin susceptible Staphylococcus aureus infection as the cause of diseases classified elsewhere; B96.89 Other specified bacterial agents as the cause of diseases classified elsewhere; E11.69 Type 2 diabetes mellitus with other specified complication; Z68.26 Body mass index [BMI] 26.0-26.9, adult; E11.649 Type 2 diabetes mellitus with hypoglycemia without coma; D63.8 Anemia in other chronic diseases classified elsewhere; Z18.10 Retained metal fragments, unspecified
CPT/HCPCS: 36569; 71045; 73630; 73700; 76937; 80048; 80053; 80069; 80202; 81003; 82150; 82565; 82962; 83036; 83605; 83690; 83735; 84100; 84484; 84520; 85025; 85610; 85730; 86850; 86900; 86901; 87040; 87070; 87086; 96374; 96375; 97161; 99291-25

== ENCOUNTER 2018-10-08 21:32 | Inpatient (IN) | payer OTHER ==
[2018-10-08] MEDS: HYDROmorphONE 2 MG/ML SYG IV (22:15)
[2018-10-08] MEDS: ONDANSETRON 4 MG INJ IV (22:15)
[2018-10-08] MEDS: SODIUM CHLORIDE 0.9% 1L BAG IV* (22:16)
[2018-10-08 22:22] LABS: ADD MAN DIFF? NO
[2018-10-08 22:23] LABS: WHITE BLOOD COUNT 14.2 10^3/ul (4.8-10.8)
[2018-10-08 22:23] LABS: BASOPHIL # 0.1 10^3/ul (0.0-0.1); BASOPHILS % 0.5 % (0.0-2.0); EOSINOPHILS # 0.1 10^3/ul (0.0-0.5); EOSINOPHILS % 0.6 % (0.0-7.0); HEMOGLOBIN 11.2 g/dl (14.0-18.0); LYMPHOCYTES # 1.6 10^3/ul (0.8-2.9); MEAN CORPUSCULAR HEMOGLOBIN 26.6 pg (29.0-33.0); MEAN CORPUSCULAR HGB CONC 32.9 g/dl (32.0-37.0); MEAN CORPUSCULAR VOLUME 80.8 fl (82.0-101.0); MEAN PLATELET VOLUME 8.6 fl (7.4-10.4); MONOCYTE # 0.7 10^3/ul (0.3-0.9); NEUTROPHIL # 11.7 10^3/ul (1.6-7.5); NEUTROPHILS % 82.5 % (39.0-77.0); PLATELET COUNT 458 10^3/UL (140-415); RED BLOOD COUNT 4.21 10^6/ul (4.70-6.10); RED CELL DISTRIBUTION WIDTH 13.5 % (11.5-14.5)
[2018-10-08] MEDS: AZTREONAM 1 GM/NS (PMX) 50 ML IVPB (22:23)
[2018-10-08] MEDS: DIPHENHYDRAMINE 50 MG INJ IV (22:26)
[2018-10-08 22:42] LABS: ADD UMIC YES; UR ASCORBIC ACID NEGATIVE (NEGATIVE); UR BILIRUBIN (Dip) NEGATIVE (NEGATIVE); UR BLOOD (Dip) 1+ mg/dL (NEGATIVE); UR CLARITY CLEAR (CLEAR); UR COLOR STRAW (YELLOW); UR GLUCOSE (Dip) 3+ mg/dL (NEGATIVE); UR KETONES (Dip) NEGATIVE (NEGATIVE); UR LEUKOCYTE ESTERASE (Dip) NEGATIVE Leu/ul (NEGATIVE); UR NITRITE (Dip) NEGATIVE (NEGATIVE); UR RBC 45 /HPF (0-5); UR TOTAL PROTEIN (Dip) NEGATIVE (NEGATIVE); UR UROBILINOGEN (Dip) NEGATIVE (NEGATIVE); UR WBC 1 /HPF (0-5)
[2018-10-08 22:43] LABS: ANION GAP 11 (5-13); BLOOD UREA NITROGEN 19 mg/dl (7-20); CALCIUM 8.9 mg/dl (8.4-10.2); CARBON DIOXIDE 28 mmol/L (21-31); CHLORIDE 93 mmol/L (97-110); CREATININE 0.97 mg/dl (0.61-1.24); Estimated GFR > 60 mL/min (>60); INR 1.05; POTASSIUM 4.4 mmol/L (3.5-5.1); PROTIME 13.8 Sec (11.9-14.9); PT RATIO 1.1; SODIUM 132 mmol/L (135-144)
[2018-10-08 22:49] LABS: GLUCOSE 465 mg/dl (70-220)
[2018-10-08] MEDS: VANCOMYCIN 1 GM (PMX) 250 ML IVPB (22:54)
[2018-10-08 22:55] LABS: TROPONIN-I < 0.012 ng/ml (0.000-0.120)
[2018-10-08] MEDS ORDERED: ONDANSETRON 4 MG INJ IV (23:30)
[2018-10-08] MEDS ORDERED: ACETAMINOPHEN 325 MG TAB PO (23:30)
[2018-10-08] MEDS: INSULIN LISPRO 100 UNIT/ML VIAL SC (23:57)
[2018-10-09] MEDS ORDERED: BISACODYL (EC) 5 MG TAB PO (00:30)
[2018-10-09] MEDS ORDERED: ACETAMINOPHEN 325 MG TAB PO (00:30)
[2018-10-09] MEDS: HEPARIN 5,000 UNIT/1 ML VIAL SC ×4 (00:30→23:01)
[2018-10-09] MEDS ORDERED: DOCUSATE SODIUM 100 MG CAP PO (00:30)
[2018-10-09] MEDS ORDERED: NACL 0.9% 3 ML SYG IV (00:30)
[2018-10-09] MEDS ORDERED: GLUCAGON 1 MG INJ IM (01:00)
[2018-10-09] MEDS ORDERED: GLUCOSE GEL 15 GRAM TUBE BUCCAL (01:00)
[2018-10-09] MEDS ORDERED: DEXTROSE 50% 50 ML SYRINGE IV ×2 (01:00)
[2018-10-09] MEDS ORDERED: GLUCOSE GEL 15 GRAM TUBE PO ×2 (01:00)
[2018-10-09] MEDS ORDERED: HEPARIN 5,000 UNIT/0.5 ML VIAL ×3 (01:39→20:07)
[2018-10-09] MEDS: ACCU-CHEK XX (02:00)
[2018-10-09] MEDS: DEXTROSE 50% 50 ML SYRINGE IV (02:25)
[2018-10-09 05:50] LABS: ADD MAN DIFF? NO
[2018-10-09 06:09] LABS: BASOPHIL # 0.1 10^3/ul (0.0-0.1); BASOPHILS % 0.5 % (0.0-2.0); EOSINOPHILS # 0.2 10^3/ul (0.0-0.5); EOSINOPHILS % 1.4 % (0.0-7.0); HEMATOCRIT 33.7 % (42.0-52.0); LYMPHOCYTES # 1.1 10^3/ul (0.8-2.9); LYMPHOCYTES % 10.2 % (15.0-51.0); MEAN CORPUSCULAR HEMOGLOBIN 26.4 pg (29.0-33.0); MEAN CORPUSCULAR HGB CONC 32.6 g/dl (32.0-37.0); MEAN CORPUSCULAR VOLUME 80.8 fl (82.0-101.0); MEAN PLATELET VOLUME 8.8 fl (7.4-10.4); MONOCYTE # 0.6 10^3/ul (0.3-0.9); MONOCYTES % 5.3 % (0.0-11.0); NEUTROPHIL # 9.1 10^3/ul (1.6-7.5); NEUTROPHILS % 82.2 % (39.0-77.0); PLATELET COUNT 452 10^3/UL (140-415); RED BLOOD COUNT 4.17 10^6/ul (4.70-6.10); RED CELL DISTRIBUTION WIDTH 13.6 % (11.5-14.5)
[2018-10-09 06:13] LABS: HEMOGLOBIN A1C 10.3 % (0-5.9)
[2018-10-09 06:18] LABS: LACTIC ACID 0.7 mmol/L (0.5-2.0)
[2018-10-09 06:19] LABS: ALANINE AMINOTRANSFERASE 16 IU/L (13-69); ALBUMIN 3.2 g/dl (3.3-4.9); ALBUMIN/GLOBULIN RATIO 0.94; ALKALINE PHOSPHATASE 115 IU/L (42-121); ANION GAP 9 (5-13); ASPARTATE AMINO TRANSFERASE 14 IU/L (15-46); BILIRUBIN,INDIRECT 0.1 mg/dl (0-1.1); BILIRUBIN,TOTAL 0.1 mg/dl (0.2-1.3); BLOOD UREA NITROGEN 16 mg/dl (7-20); CALCIUM 8.7 mg/dl (8.4-10.2); CARBON DIOXIDE 29 mmol/L (21-31); CHLORIDE 97 mmol/L (97-110); CREATININE 0.69 mg/dl (0.61-1.24); Estimated GFR > 60 mL/min (>60); GLUCOSE 71 mg/dl (70-220); POTASSIUM 4.1 mmol/L (3.5-5.1); SODIUM 135 mmol/L (135-144); TOTAL PROTEIN 6.6 g/dl (6.1-8.1)
[2018-10-09 06:20] LABS: CHOLESTEROL 109 mg/dl (100-200); MAGNESIUM 1.7 mg/dl (1.7-2.5)
[2018-10-09 06:20] LABS: CHOL/HDL RATIO 3.1 RATIO; HDL CHOLESTEROL 35 mg/dl (27-67); LDL CHOLESTEROL,CALCULATED 65 mg/dl; TRIGLYCERIDES 44 mg/dl (0-149)
[2018-10-09 06:54] LABS: THYROID STIMULATING HORMONE 0.884 MIU/L (0.465-4.680)
[2018-10-09] MEDS ORDERED: VANCOMYCIN IV PER PHARMACY XX (07:30)
[2018-10-09] MEDS: INSULIN ASPART [NOVOLOG] 3 ML PEN SC ×6 (08:00→23:02)
[2018-10-09] MEDS: INSULIN GLARGINE [LANTus] (100 UNITS/ML) SYG SC (08:18)
[2018-10-09] MEDS: LEVOFLOXACIN 750MG/D5W (PMX) 150 ML IVPB (09:08)
[2018-10-09] MEDS: morphine 2 MG INJ IV ×2 (09:29→22:55)
[2018-10-09] MEDS: VANCOMYCIN 1.5 GM in SOD CHLORIDE 0.9% 250 ML IVPB ×2 (10:48→23:09)
[2018-10-09] MEDS: SOD CHLORIDE 0.9% 100 ML (12:36)
[2018-10-09] MEDS: IOHEXOL 300MG/ML 150 ML BTL (12:36)
[2018-10-09] MEDS ORDERED: PENDING SANTYL ORDER FOR WOUND CARE XX (20:00)
[2018-10-09] MEDS ORDERED: COLLAGENASE 5 GM (UD JAR) TOP (20:00)
[2018-10-09] MEDS: ATORVASTATIN 20 MG TAB PO (22:53)
[2018-10-09] MEDS ORDERED: DIPHENHYDRAMINE 50 MG INJ (23:34)
[2018-10-09] MEDS: DIPHENHYDRAMINE 50 MG INJ IV (23:44)
[2018-10-10] MEDS: ACCU-CHEK XX (02:00)
[2018-10-10 05:21] LABS: ADD MAN DIFF? NO
[2018-10-10 05:28] LABS: BASOPHILS % 0.7 % (0.0-2.0); EOSINOPHILS # 0.4 10^3/ul (0.0-0.5); EOSINOPHILS % 6.4 % (0.0-7.0); HEMOGLOBIN 12.1 g/dl (14.0-18.0); LYMPHOCYTES # 1.6 10^3/ul (0.8-2.9); LYMPHOCYTES % 26.3 % (15.0-51.0); MEAN CORPUSCULAR HEMOGLOBIN 25.9 pg (29.0-33.0); MEAN CORPUSCULAR HGB CONC 31.8 g/dl (32.0-37.0); MEAN CORPUSCULAR VOLUME 81.4 fl (82.0-101.0); MEAN PLATELET VOLUME 8.3 fl (7.4-10.4); MONOCYTE # 0.6 10^3/ul (0.3-0.9); MONOCYTES % 9.1 % (0.0-11.0); NEUTROPHIL # 3.5 10^3/ul (1.6-7.5); PLATELET COUNT 448 10^3/UL (140-415); RED BLOOD COUNT 4.67 10^6/ul (4.70-6.10); RED CELL DISTRIBUTION WIDTH 13.6 % (11.5-14.5)
[2018-10-10 05:28] LABS: WHITE BLOOD COUNT 6.1 10^3/ul (4.8-10.8)
[2018-10-10 05:54] LABS: ANION GAP 8 (5-13); BLOOD UREA NITROGEN 14 mg/dl (7-20); CALCIUM 8.6 mg/dl (8.4-10.2); CARBON DIOXIDE 32 mmol/L (21-31); CHLORIDE 96 mmol/L (97-110); CREATININE 0.75 mg/dl (0.61-1.24); Estimated GFR > 60 mL/min (>60); GLUCOSE 212 mg/dl (70-220); MAGNESIUM 1.9 mg/dl (1.7-2.5); POTASSIUM 4.3 mmol/L (3.5-5.1); SODIUM 136 mmol/L (135-144)
[2018-10-10] MEDS ORDERED: HEPARIN 5,000 UNIT/0.5 ML VIAL (06:30)
[2018-10-10] MEDS: LEVOFLOXACIN 750MG/D5W (PMX) 150 ML IVPB (06:37)
[2018-10-10 07:29] LABS: PROSTATE SPECIFIC ANTIGEN 0.5 ng/ml (0.0-4.0)
[2018-10-10 07:39] LABS: HIV 1&2 ANTIBODY NEGATIVE (NEGATIVE)
[2018-10-10] MEDS: COLLAGENASE 5 GM (UD JAR) TOP (08:21)
[2018-10-10] MEDS: INSULIN ASPART [NOVOLOG] 3 ML PEN SC ×7 (08:22→20:23)
[2018-10-10] MEDS: ENOXAPARIN 40 MG/0.4 ML SYG SC (08:25)
[2018-10-10] MEDS: INSULIN GLARGINE [LANTus] (100 UNITS/ML) SYG SC (08:25)
[2018-10-10] MEDS: morphine 2 MG INJ IV ×2 (08:54→20:19)
[2018-10-10] MEDS: DIPHENHYDRAMINE 25 MG CAP PO ×2 (11:40→23:05)
[2018-10-10] MEDS: VANCOMYCIN 1.5 GM in SOD CHLORIDE 0.9% 250 ML IVPB ×2 (11:40→23:06)
[2018-10-10] MEDS: SODIUM HYPOCHLORITE (1/40) 1 APPLIC BTL IRR (12:57)
[2018-10-10] MEDS: ATORVASTATIN 20 MG TAB PO (20:19)
[2018-10-10 22:41] LABS: VANCOMYCIN,TROUGH 16.8 ug/ml (10.0-20.0)
[2018-10-11] MEDS: ACCU-CHEK XX (01:17)
[2018-10-11] MEDS: LEVOFLOXACIN 750 MG TABLET PO (06:07)
[2018-10-11] MEDS: morphine 2 MG INJ IV ×4 (06:08→22:17)
[2018-10-11 06:22] LABS: ADD MAN DIFF? NO; BASOPHIL # 0.1 10^3/ul (0.0-0.1); BASOPHILS % 1.1 % (0.0-2.0); EOSINOPHILS # 0.4 10^3/ul (0.0-0.5); EOSINOPHILS % 7.6 % (0.0-7.0); HEMATOCRIT 36.6 % (42.0-52.0); HEMOGLOBIN 11.6 g/dl (14.0-18.0); LYMPHOCYTES # 1.7 10^3/ul (0.8-2.9); LYMPHOCYTES % 30.7 % (15.0-51.0); MEAN CORPUSCULAR HGB CONC 31.7 g/dl (32.0-37.0); MEAN CORPUSCULAR VOLUME 82.1 fl (82.0-101.0); MEAN PLATELET VOLUME 8.6 fl (7.4-10.4); MONOCYTE # 0.5 10^3/ul (0.3-0.9); MONOCYTES % 8.7 % (0.0-11.0); NEUTROPHIL # 2.8 10^3/ul (1.6-7.5); NEUTROPHILS % 51.4 % (39.0-77.0); PLATELET COUNT 482 10^3/UL (140-415); RED BLOOD COUNT 4.46 10^6/ul (4.70-6.10); RED CELL DISTRIBUTION WIDTH 13.8 % (11.5-14.5)
[2018-10-11 06:22] LABS: WHITE BLOOD COUNT 5.5 10^3/ul (4.8-10.8)
[2018-10-11 06:52] LABS: ANION GAP 11 (5-13); BLOOD UREA NITROGEN 20 mg/dl (7-20); CARBON DIOXIDE 28 mmol/L (21-31); CHLORIDE 98 mmol/L (97-110); Estimated GFR > 60 mL/min (>60); GLUCOSE 236 mg/dl (70-220); POTASSIUM 4.6 mmol/L (3.5-5.1); SODIUM 137 mmol/L (135-144)
[2018-10-11] MEDS: COLLAGENASE 5 GM (UD JAR) TOP (08:16)
[2018-10-11] MEDS: INSULIN ASPART [NOVOLOG] 3 ML PEN SC ×7 (08:18→20:45)
[2018-10-11] MEDS: INSULIN GLARGINE [LANTus] (100 UNITS/ML) SYG SC ×2 (08:20→20:48)
[2018-10-11] MEDS: SODIUM HYPOCHLORITE (1/40) 1 APPLIC BTL IRR (08:21)
[2018-10-11] MEDS: ENOXAPARIN 40 MG/0.4 ML SYG SC (08:21)
[2018-10-11] MEDS: VANCOMYCIN 1.25 GM in SOD CHLORIDE 0.9% 250 ML IVPB (11:03)
[2018-10-11] MEDS: ATORVASTATIN 20 MG TAB PO (20:46)
[2018-10-11] MEDS: HYDROCODONE/APAP (5/325) TAB PO (22:17)
[2018-10-12] MEDS: DIPHENHYDRAMINE 25 MG CAP PO (00:58)
[2018-10-12] MEDS: VANCOMYCIN 1.25 GM in SOD CHLORIDE 0.9% 250 ML IVPB (00:58)
[2018-10-12] MEDS: ACCU-CHEK XX (02:00)
[2018-10-12] MEDS: LEVOFLOXACIN 750 MG TABLET PO (06:28)
[2018-10-12] MEDS: INSULIN ASPART [NOVOLOG] 3 ML PEN SC ×7 (08:00→20:36)
[2018-10-12] MEDS: COLLAGENASE 5 GM (UD JAR) TOP (08:45)
[2018-10-12] MEDS: INSULIN GLARGINE [LANTus] (100 UNITS/ML) SYG SC ×2 (08:45→20:35)
[2018-10-12] MEDS: SODIUM HYPOCHLORITE (1/40) 1 APPLIC BTL IRR (08:45)
[2018-10-12] MEDS: ENOXAPARIN 40 MG/0.4 ML SYG SC (08:46)
[2018-10-12] MEDS: CEFTRIAXONE 1 GM/50 ML (PMX) 50 ML IVPB (11:27)
[2018-10-12] MEDS: morphine 2 MG INJ IV ×3 (11:31→20:27)
[2018-10-12] MEDS: SOD CHLORIDE 0.9% 500 ML (12:55)
[2018-10-12] MEDS: FENTAnyl 50 MCG/ML VIAL (13:35)
[2018-10-12] MEDS: MIDAZOLAM 1 MG/ML 2 ML INJ (13:35)
[2018-10-12] MEDS: HYDROCODONE/APAP (5/325) TAB PO (18:40)
[2018-10-12] MEDS: HYDROCODONE/APAP (10/325) TAB PO (19:10)
[2018-10-12] MEDS: ATORVASTATIN 20 MG TAB PO (20:27)
[2018-10-12] MEDS: LORAZEPAM 0.5 MG TAB PO (21:45)
[2018-10-12] MEDS: morphine 4 MG/ML VIAL IV (21:46)
[2018-10-12] MEDS: ONDANSETRON 4 MG INJ IV (21:49)
[2018-10-13] MEDS: HYDROCODONE/APAP (10/325) TAB PO ×3 (01:36→17:15)
[2018-10-13] MEDS: ACCU-CHEK XX (02:00)
[2018-10-13] MEDS: INSULIN ASPART [NOVOLOG] 3 ML PEN SC ×7 (08:56→20:44)
[2018-10-13] MEDS: INSULIN GLARGINE [LANTus] (100 UNITS/ML) SYG SC ×3 (08:57→20:44)
[2018-10-13] MEDS: ENOXAPARIN 40 MG/0.4 ML SYG SC (08:58)
[2018-10-13] MEDS: COLLAGENASE 5 GM (UD JAR) TOP (08:58)
[2018-10-13] MEDS: SODIUM HYPOCHLORITE (1/40) 1 APPLIC BTL IRR (09:01)
[2018-10-13] MEDS: CEFTRIAXONE 1 GM/50 ML (PMX) 50 ML IVPB (12:42)
[2018-10-13] MEDS: ATORVASTATIN 20 MG TAB PO (20:43)
== END 2018-10-13 21:10 | disposition home health service (06) | DRG 629 ==
LOC: 2NE 23:25 → E/R 21:32
PROC: 0QBL0ZZ Excision of Right Tarsal, Open Approach (ICD-10-PCS; 2018-10-09)
PROC: 07BH3ZX Excision of Right Inguinal Lymphatic, Percutaneous Approach, Diagnostic (ICD-10-PCS; principal; 2018-10-12)
DX: E11.621 Type 2 diabetes mellitus with foot ulcer (principal); L97.419 Non-pressure chronic ulcer of right heel and midfoot with unspecified severity; L03.115 Cellulitis of right lower limb; M86.671 Other chronic osteomyelitis, right ankle and foot; E11.69 Type 2 diabetes mellitus with other specified complication; E11.42 Type 2 diabetes mellitus with diabetic polyneuropathy; E11.51 Type 2 diabetes mellitus with diabetic peripheral angiopathy without gangrene; E11.628 Type 2 diabetes mellitus with other skin complications; E11.65 Type 2 diabetes mellitus with hyperglycemia; I73.9 Peripheral vascular disease, unspecified; R59.0 Localized enlarged lymph nodes; N40.0 Benign prostatic hyperplasia without lower urinary tract symptoms; F17.200 Nicotine dependence, unspecified, uncomplicated; F12.90 Cannabis use, unspecified, uncomplicated; B95.61 Methicillin susceptible Staphylococcus aureus infection as the cause of diseases classified elsewhere; B95.0 Streptococcus, group A, as the cause of diseases classified elsewhere; B95.4 Other streptococcus as the cause of diseases classified elsewhere; Z79.4 Long term (current) use of insulin; Z91.19 Patient's noncompliance with other medical treatment and regimen
CPT/HCPCS: 36415; 73630; 74177; 77012; 78806; 80048; 80053; 80061; 80202; 81001; 82962; 83036; 83605; 83735; 84153; 84154; 84443; 84484; 85025; 85610; 85730; 86703; 87040; 87070; 87086; 87591; 88307; 88313; 93005; 93971; 96365; 96375; 99291-25

== ENCOUNTER 2019-01-24 19:46 | Inpatient (IN) | payer OTHER ==
[2019-01-24 20:44] LABS: ADD MAN DIFF? NO
[2019-01-24 20:45] LABS: BASOPHIL # 0.1 10^3/ul (0.0-0.1); BASOPHILS % 0.6 % (0.0-2.0); EOSINOPHILS # 0.1 10^3/ul (0.0-0.5); EOSINOPHILS % 0.7 % (0.0-7.0); HEMATOCRIT 34.9 % (42.0-52.0); HEMOGLOBIN 11.6 g/dl (14.0-18.0); LYMPHOCYTES # 1.5 10^3/ul (0.8-2.9); LYMPHOCYTES % 10.5 % (15.0-51.0); MEAN CORPUSCULAR HEMOGLOBIN 27.1 pg (29.0-33.0); MEAN CORPUSCULAR HGB CONC 33.2 g/dl (32.0-37.0); MEAN CORPUSCULAR VOLUME 81.5 fl (82.0-101.0); MONOCYTE # 1.1 10^3/ul (0.3-0.9); MONOCYTES % 7.7 % (0.0-11.0); NEUTROPHIL # 11.4 10^3/ul (1.6-7.5); NEUTROPHILS % 79.9 % (39.0-77.0); PLATELET COUNT 340 10^3/UL (140-415); RED BLOOD COUNT 4.28 10^6/ul (4.70-6.10); RED CELL DISTRIBUTION WIDTH 13.5 % (11.5-14.5)
[2019-01-24 20:45] LABS: WHITE BLOOD COUNT 14.3 10^3/ul (4.8-10.8)
[2019-01-24] MEDS: SODIUM CHLORIDE 0.9% 1L BAG IV* (20:53)
[2019-01-24] MEDS: ACETAMINOPHEN 500 MG TAB PO (21:01)
[2019-01-24] MEDS: morphine 4 MG/ML VIAL IV (21:01)
[2019-01-24 21:04] LABS: LACTIC ACID 1.8 mmol/L (0.5-2.0)
[2019-01-24 21:06] LABS: ALANINE AMINOTRANSFERASE 28 IU/L (13-69); ALBUMIN/GLOBULIN RATIO 1.08; ALKALINE PHOSPHATASE 132 IU/L (42-121); ANION GAP 12 (5-13); ASPARTATE AMINO TRANSFERASE 39 IU/L (15-46); BILIRUBIN,INDIRECT 0.7 mg/dl (0-1.1); BILIRUBIN,TOTAL 0.7 mg/dl (0.2-1.3); BLOOD UREA NITROGEN 20 mg/dl (7-20); CALCIUM 9.5 mg/dl (8.4-10.2); CARBON DIOXIDE 25 mmol/L (21-31); CHLORIDE 99 mmol/L (97-110); CREATININE 0.86 mg/dl (0.61-1.24); Estimated GFR > 60 mL/min (>60); GLUCOSE 156 mg/dl (70-220); POTASSIUM 3.5 mmol/L (3.5-5.1); SODIUM 136 mmol/L (135-144); TOTAL PROTEIN 7.7 g/dl (6.1-8.1)
[2019-01-24 21:13] LABS: INR 1.18; PROTIME 15.1 Sec (11.9-14.9); PT RATIO 1.2
[2019-01-24 21:17] LABS: TROPONIN-I < 0.012 ng/ml (0.000-0.120)
[2019-01-24] MEDS: GENTAMICIN 180 MG in SOD CHLORIDE 0.9% 100 ML IVPB (21:23)
[2019-01-24] MEDS: HYDROmorphONE 0.5 MG/0.5 ML SYG IV (22:15)
[2019-01-24] MEDS: VANCOMYCIN 1 GM (PMX) 250 ML IVPB (22:17)
[2019-01-24] MEDS ORDERED: NACL 0.9% 3 ML SYG IV (22:30)
[2019-01-24] MEDS ORDERED: DEXTROSE 50% 50 ML SYRINGE (23:45)
[2019-01-24 23:46] LABS: ERYTHROCYTE SEDIMENTATION RATE 57 mm/Hr (0-15)
[2019-01-25] MEDS ORDERED: VANCOMYCIN IV PER PHARMACY XX (01:00)
[2019-01-25] MEDS: HYDROmorphONE 0.5 MG/0.5 ML SYG IV ×4 (01:43→21:01)
[2019-01-25 05:35] LABS: ADD MAN DIFF? NO
[2019-01-25 05:38] LABS: WHITE BLOOD COUNT 11.9 10^3/ul (4.8-10.8)
[2019-01-25 05:38] LABS: BASOPHIL # 0.1 10^3/ul (0.0-0.1); BASOPHILS % 0.5 % (0.0-2.0); EOSINOPHILS # 0.5 10^3/ul (0.0-0.5); EOSINOPHILS % 4.1 % (0.0-7.0); HEMATOCRIT 34.8 % (42.0-52.0); HEMOGLOBIN 11.1 g/dl (14.0-18.0); LYMPHOCYTES # 2.1 10^3/ul (0.8-2.9); LYMPHOCYTES % 17.6 % (15.0-51.0); MEAN CORPUSCULAR HEMOGLOBIN 26.8 pg (29.0-33.0); MEAN CORPUSCULAR HGB CONC 31.9 g/dl (32.0-37.0); MEAN CORPUSCULAR VOLUME 84.1 fl (82.0-101.0); MEAN PLATELET VOLUME 9.7 fl (7.4-10.4); MONOCYTE # 1.1 10^3/ul (0.3-0.9); MONOCYTES % 9.3 % (0.0-11.0); NEUTROPHIL # 8.1 10^3/ul (1.6-7.5); PLATELET COUNT 287 10^3/UL (140-415); RED BLOOD COUNT 4.14 10^6/ul (4.70-6.10); RED CELL DISTRIBUTION WIDTH 13.6 % (11.5-14.5)
[2019-01-25 05:56] LABS: ALANINE AMINOTRANSFERASE 25 IU/L (13-69); ALBUMIN/GLOBULIN RATIO 0.96; ALKALINE PHOSPHATASE 91 IU/L (42-121); ANION GAP 10 (5-13); ASPARTATE AMINO TRANSFERASE 31 IU/L (15-46); BILIRUBIN,INDIRECT 0.5 mg/dl (0-1.1); BILIRUBIN,TOTAL 0.5 mg/dl (0.2-1.3); BLOOD UREA NITROGEN 15 mg/dl (7-20); CARBON DIOXIDE 25 mmol/L (21-31); CHLORIDE 102 mmol/L (97-110); CHOL/HDL RATIO 2.9 RATIO; CHOLESTEROL 109 mg/dl (100-200); CREATININE 0.69 mg/dl (0.61-1.24); Estimated GFR > 60 mL/min (>60); GLUCOSE 191 mg/dl (70-220); HDL CHOLESTEROL 37 mg/dl (27-67); LDL CHOLESTEROL,CALCULATED 56 mg/dl; MAGNESIUM 1.9 mg/dl (1.7-2.5); POTASSIUM 3.7 mmol/L (3.5-5.1); SODIUM 137 mmol/L (135-144); TOTAL PROTEIN 6.1 g/dl (6.1-8.1); TRIGLYCERIDES 81 mg/dl (0-149)
[2019-01-25] MEDS: HEPARIN 5,000 UNIT/1 ML VIAL SC ×3 (06:24→21:07)
[2019-01-25] MEDS: DIPHENHYDRAMINE 25 MG CAP PO (06:42)
[2019-01-25] MEDS: VANCOMYCIN HCL 1.25 GM in SOD CHLORIDE 0.9% 250 ML IVPB (06:55)
[2019-01-25] MEDS ORDERED: DIPHENHYDRAMINE 50 MG CAP PO (07:00)
[2019-01-25 07:18] LABS: HEMOGLOBIN A1C 9.7 % (0-5.9)
[2019-01-25] MEDS: INSULIN GLARGINE [LANTus] (100 UNITS/ML) SYG SC (08:53)
[2019-01-25] MEDS: INSULIN ASPART [NOVOLOG] 3 ML PEN SC ×3 (08:53→17:46)
[2019-01-25] MEDS: LEVOFLOXACIN 750MG/D5W (PMX) 150 ML IVPB (10:01)
[2019-01-25 10:07] LABS: C-REACTIVE PROTEIN 20.5 mg/dl (0.0-0.9)
[2019-01-25 10:46] LABS: ERYTHROCYTE SEDIMENTATION RATE 60 mm/Hr (0-15)
[2019-01-25] MEDS: VANCOMYCIN HCL 1.5 GM in SOD CHLORIDE 0.9% 250 ML IVPB (18:57)
[2019-01-25] MEDS: DIPHENHYDRAMINE 50 MG INJ IV (18:57)
[2019-01-25 19:23] LABS: ADD UMIC NO; UR ASCORBIC ACID NEGATIVE (NEGATIVE); UR BILIRUBIN (Dip) NEGATIVE (NEGATIVE); UR BLOOD (Dip) NEGATIVE (NEGATIVE); UR CLARITY CLEAR (CLEAR); UR COLOR YELLOW (YELLOW); UR GLUCOSE (Dip) 3+ mg/dL (NEGATIVE); UR KETONES (Dip) TRACE mg/dL (NEGATIVE); UR LEUKOCYTE ESTERASE (Dip) NEGATIVE Leu/ul (NEGATIVE); UR NITRITE (Dip) NEGATIVE (NEGATIVE); UR SPECIFIC GRAVITY (Dip) 1.015 (1.003-1.030); UR TOTAL PROTEIN (Dip) NEGATIVE (NEGATIVE); UR UROBILINOGEN (Dip) 2+ mg/dL (NEGATIVE)
[2019-01-26] MEDS: HYDROmorphONE 0.5 MG/0.5 ML SYG IV ×5 (01:01→23:00)
[2019-01-26 06:04] LABS: ADD MAN DIFF? NO
[2019-01-26 06:21] LABS: BASOPHILS % 0.5 % (0.0-2.0); EOSINOPHILS # 0.4 10^3/ul (0.0-0.5); EOSINOPHILS % 5.4 % (0.0-7.0); HEMATOCRIT 34.9 % (42.0-52.0); HEMOGLOBIN 11.1 g/dl (14.0-18.0); LYMPHOCYTES % 24.8 % (15.0-51.0); MEAN CORPUSCULAR HEMOGLOBIN 26.9 pg (29.0-33.0); MEAN CORPUSCULAR HGB CONC 31.8 g/dl (32.0-37.0); MEAN CORPUSCULAR VOLUME 84.7 fl (82.0-101.0); MEAN PLATELET VOLUME 9.4 fl (7.4-10.4); MONOCYTE # 0.8 10^3/ul (0.3-0.9); NEUTROPHIL # 4.8 10^3/ul (1.6-7.5); NEUTROPHILS % 58.9 % (39.0-77.0); PLATELET COUNT 342 10^3/UL (140-415); RED BLOOD COUNT 4.12 10^6/ul (4.70-6.10); RED CELL DISTRIBUTION WIDTH 13.4 % (11.5-14.5)
[2019-01-26 06:21] LABS: WHITE BLOOD COUNT 8.1 10^3/ul (4.8-10.8)
[2019-01-26 06:47] LABS: ALBUMIN 2.9 g/dl (3.3-4.9); ANION GAP 6 (5-13); BLOOD UREA NITROGEN 9 mg/dl (7-20); CALCIUM 8.7 mg/dl (8.4-10.2); CARBON DIOXIDE 29 mmol/L (21-31); CHLORIDE 101 mmol/L (97-110); CREATININE 0.77 mg/dl (0.61-1.24); GLUCOSE 248 mg/dl (70-220); MAGNESIUM 1.8 mg/dl (1.7-2.5); PHOSPHORUS 3.9 mg/dl (2.5-4.9); SODIUM 136 mmol/L (135-144)
[2019-01-26] MEDS: VANCOMYCIN HCL 1.5 GM in SOD CHLORIDE 0.9% 250 ML IVPB ×2 (06:56→19:48)
[2019-01-26] MEDS: DIPHENHYDRAMINE 50 MG INJ IV ×2 (06:58→19:47)
[2019-01-26] MEDS: HEPARIN 5,000 UNIT/1 ML VIAL SC ×4 (07:03→22:00)
[2019-01-26] MEDS: SODIUM HYPOCHLORITE (1/40) 1 LITER BTL IRR (08:27)
[2019-01-26] MEDS: INSULIN GLARGINE [LANTus] (100 UNITS/ML) SYG SC (08:30)
[2019-01-26] MEDS: INSULIN ASPART [NOVOLOG] 3 ML PEN SC ×7 (08:30→20:31)
[2019-01-26] MEDS ORDERED: DEXTROSE 50% 50 ML SYRINGE IV (09:00)
[2019-01-26] MEDS ORDERED: GLUCOSE GEL 15 GRAM TUBE PO (09:00)
[2019-01-26] MEDS ORDERED: GLUCAGON 1 MG INJ IM (09:00)
[2019-01-26] MEDS: LEVOFLOXACIN 750MG/D5W (PMX) 150 ML IVPB (10:11)
[2019-01-26] MEDS ORDERED: INSULIN ASPART [NOVOLOG] 3 ML PEN SC (12:00)
[2019-01-26] MEDS: MAGNESIUM SULFATE 2 GM/50 ML 50 ML IVPB (12:32)
[2019-01-26] MEDS: HYDROCODONE/APAP (5/325) TAB PO (15:00)
[2019-01-26 18:45] LABS: VANCOMYCIN,TROUGH 9.1 ug/ml (10.0-20.0)
[2019-01-27] MEDS: HYDROmorphONE 0.5 MG/0.5 ML SYG IV ×5 (03:11→22:05)
[2019-01-27] MEDS: HEPARIN 5,000 UNIT/1 ML VIAL SC ×3 (06:38→21:30)
[2019-01-27] MEDS: INSULIN ASPART [NOVOLOG] 3 ML PEN SC ×7 (08:19→20:46)
[2019-01-27] MEDS: INSULIN GLARGINE [LANTus] (100 UNITS/ML) SYG SC (08:19)
[2019-01-27] MEDS: LEVOFLOXACIN 750MG/D5W (PMX) 150 ML IVPB (08:23)
[2019-01-27] MEDS: SODIUM HYPOCHLORITE (1/40) 1 LITER BTL IRR (08:29)
[2019-01-27] MEDS: VANCOMYCIN HCL 1.75 GM in SOD CHLORIDE 0.9% 500 ML IVPB ×2 (09:29→21:25)
[2019-01-27] MEDS: DIPHENHYDRAMINE 50 MG INJ IV ×2 (09:30→21:23)
[2019-01-27] MEDS: HYDROCODONE/APAP (5/325) TAB PO (16:01)
[2019-01-28] MEDS: HYDROmorphONE 0.5 MG/0.5 ML SYG IV ×4 (02:54→19:44)
[2019-01-28] MEDS: HEPARIN 5,000 UNIT/1 ML VIAL SC ×3 (05:47→22:00)
[2019-01-28 05:59] LABS: WHITE BLOOD COUNT 6.9 10^3/ul (4.8-10.8)
[2019-01-28 05:59] LABS: ADD MAN DIFF? NO; BASOPHIL # 0.1 10^3/ul (0.0-0.1); BASOPHILS % 0.7 % (0.0-2.0); EOSINOPHILS # 0.3 10^3/ul (0.0-0.5); EOSINOPHILS % 4.9 % (0.0-7.0); HEMATOCRIT 37.6 % (42.0-52.0); HEMOGLOBIN 12.3 g/dl (14.0-18.0); LYMPHOCYTES # 1.6 10^3/ul (0.8-2.9); LYMPHOCYTES % 22.7 % (15.0-51.0); MEAN CORPUSCULAR HEMOGLOBIN 27.2 pg (29.0-33.0); MEAN CORPUSCULAR HGB CONC 32.7 g/dl (32.0-37.0); MEAN PLATELET VOLUME 9.1 fl (7.4-10.4); MONOCYTE # 0.7 10^3/ul (0.3-0.9); MONOCYTES % 9.5 % (0.0-11.0); NEUTROPHIL # 4.3 10^3/ul (1.6-7.5); NEUTROPHILS % 61.6 % (39.0-77.0); PLATELET COUNT 424 10^3/UL (140-415); RED BLOOD COUNT 4.53 10^6/ul (4.70-6.10); RED CELL DISTRIBUTION WIDTH 13.2 % (11.5-14.5)
[2019-01-28] MEDS: HYDROCODONE/APAP (5/325) TAB PO ×4 (06:36→21:17)
[2019-01-28 06:50] LABS: ALBUMIN 3.5 g/dl (3.3-4.9); ANION GAP 10 (5-13); BLOOD UREA NITROGEN 15 mg/dl (7-20); CALCIUM 9.5 mg/dl (8.4-10.2); CARBON DIOXIDE 27 mmol/L (21-31); CHLORIDE 98 mmol/L (97-110); CREATININE 0.87 mg/dl (0.61-1.24); GLUCOSE 336 mg/dl (70-220); MAGNESIUM 1.8 mg/dl (1.7-2.5); PHOSPHORUS 3.9 mg/dl (2.5-4.9); POTASSIUM 4.3 mmol/L (3.5-5.1); SODIUM 135 mmol/L (135-144)
[2019-01-28] MEDS: LEVOFLOXACIN 750MG/D5W (PMX) 150 ML IVPB (08:48)
[2019-01-28] MEDS: INSULIN ASPART [NOVOLOG] 3 ML PEN SC ×7 (08:54→21:00)
[2019-01-28] MEDS: INSULIN GLARGINE [LANTus] (100 UNITS/ML) SYG SC (08:55)
[2019-01-28] MEDS: SODIUM HYPOCHLORITE (1/40) 1 LITER BTL IRR (08:56)
[2019-01-28] MEDS: VANCOMYCIN HCL 1.75 GM in SOD CHLORIDE 0.9% 500 ML IVPB ×2 (09:26→20:24)
[2019-01-28] MEDS: DIPHENHYDRAMINE 50 MG INJ IV ×2 (10:32→21:15)
[2019-01-28] MEDS: DOCOSANOL 2 GM CREAM TOP ×3 (16:55→21:06)
[2019-01-28 21:32] LABS: GLUCOSE 93 mg/dl (70-220)
[2019-01-29] MEDS: HYDROmorphONE 0.5 MG/0.5 ML SYG IV ×4 (00:57→17:28)
[2019-01-29] MEDS: INSULIN ASPART [NOVOLOG] 3 ML PEN SC ×9 (01:06→20:57)
[2019-01-29] MEDS: ACCU-CHEK XX (02:00)
[2019-01-29] MEDS: DEXTROSE 5%-0.45% NACL 1,000 ML IV (02:20)
[2019-01-29] MEDS: HEPARIN 5,000 UNIT/1 ML VIAL SC ×3 (05:53→22:00)
[2019-01-29 08:27] LABS: ADD MAN DIFF? NO
[2019-01-29 08:30] LABS: WHITE BLOOD COUNT 5.7 10^3/ul (4.8-10.8)
[2019-01-29 08:30] LABS: BASOPHILS % 0.9 % (0.0-2.0); EOSINOPHILS % 3.5 % (0.0-7.0); HEMATOCRIT 39.6 % (42.0-52.0); HEMOGLOBIN 12.9 g/dl (14.0-18.0); LYMPHOCYTES # 1.7 10^3/ul (0.8-2.9); LYMPHOCYTES % 29.2 % (15.0-51.0); MEAN CORPUSCULAR HEMOGLOBIN 27.2 pg (29.0-33.0); MEAN CORPUSCULAR HGB CONC 32.6 g/dl (32.0-37.0); MEAN CORPUSCULAR VOLUME 83.4 fl (82.0-101.0); MEAN PLATELET VOLUME 8.4 fl (7.4-10.4); MONOCYTES % 8.9 % (0.0-11.0); NEUTROPHIL # 3.2 10^3/ul (1.6-7.5); NEUTROPHILS % 56.8 % (39.0-77.0); PLATELET COUNT 465 10^3/UL (140-415); RED BLOOD COUNT 4.75 10^6/ul (4.70-6.10); RED CELL DISTRIBUTION WIDTH 13.4 % (11.5-14.5)
[2019-01-29 08:31] LABS: BASOPHIL # 0.1 10^3/ul (0.0-0.1); EOSINOPHILS # 0.2 10^3/ul (0.0-0.5); MONOCYTE # 0.5 10^3/ul (0.3-0.9)
[2019-01-29] MEDS: LEVOFLOXACIN 750MG/D5W (PMX) 150 ML IVPB (08:33)
[2019-01-29] MEDS: INSULIN GLARGINE [LANTus] (100 UNITS/ML) SYG SC (08:40)
[2019-01-29 08:50] LABS: ALBUMIN 3.7 g/dl (3.3-4.9); ANION GAP 11 (5-13); BLOOD UREA NITROGEN 18 mg/dl (7-20); CALCIUM 9.4 mg/dl (8.4-10.2); CARBON DIOXIDE 25 mmol/L (21-31); CHLORIDE 104 mmol/L (97-110); CREATININE 0.74 mg/dl (0.61-1.24); GLUCOSE 236 mg/dl (70-220); PHOSPHORUS 3.8 mg/dl (2.5-4.9); POTASSIUM 4.2 mmol/L (3.5-5.1); SODIUM 140 mmol/L (135-144)
[2019-01-29 08:53] LABS: VANCOMYCIN,TROUGH 12.4 ug/ml (10.0-20.0)
[2019-01-29] MEDS: SODIUM HYPOCHLORITE (1/40) 1 LITER BTL IRR ×2 (09:00→12:45)
[2019-01-29] MEDS: DOCOSANOL 2 GM CREAM TOP ×5 (09:03→20:57)
[2019-01-29] MEDS: ONDANSETRON 4 MG INJ IV (10:12)
[2019-01-29] MEDS: VANCOMYCIN HCL 1.75 GM in SOD CHLORIDE 0.9% 500 ML IVPB ×2 (10:12→20:56)
[2019-01-29] MEDS: HYDROCODONE/APAP (5/325) TAB PO ×2 (12:26→20:45)
[2019-01-29] MEDS: DIPHENHYDRAMINE 50 MG INJ IV (20:46)
[2019-01-30] MEDS: ACCU-CHEK XX (01:19)
[2019-01-30] MEDS: HYDROmorphONE 0.5 MG/0.5 ML SYG IV ×5 (05:16→23:06)
[2019-01-30] MEDS: HEPARIN 5,000 UNIT/1 ML VIAL SC ×3 (05:37→21:48)
[2019-01-30 05:49] LABS: ADD MAN DIFF? NO
[2019-01-30 05:58] LABS: WHITE BLOOD COUNT 6.7 10^3/ul (4.8-10.8)
[2019-01-30 05:58] LABS: BASOPHIL # 0.1 10^3/ul (0.0-0.1); BASOPHILS % 0.9 % (0.0-2.0); EOSINOPHILS # 0.3 10^3/ul (0.0-0.5); EOSINOPHILS % 4.6 % (0.0-7.0); HEMATOCRIT 40.1 % (42.0-52.0); HEMOGLOBIN 12.8 g/dl (14.0-18.0); LYMPHOCYTES # 1.8 10^3/ul (0.8-2.9); LYMPHOCYTES % 26.1 % (15.0-51.0); MEAN CORPUSCULAR HEMOGLOBIN 26.9 pg (29.0-33.0); MEAN CORPUSCULAR HGB CONC 31.9 g/dl (32.0-37.0); MEAN CORPUSCULAR VOLUME 84.4 fl (82.0-101.0); MEAN PLATELET VOLUME 8.7 fl (7.4-10.4); MONOCYTE # 0.5 10^3/ul (0.3-0.9); NEUTROPHIL # 4.1 10^3/ul (1.6-7.5); NEUTROPHILS % 60.7 % (39.0-77.0); PLATELET COUNT 496 10^3/UL (140-415); RED BLOOD COUNT 4.75 10^6/ul (4.70-6.10); RED CELL DISTRIBUTION WIDTH 13.5 % (11.5-14.5)
[2019-01-30] MEDS: LEVOFLOXACIN 750 MG TABLET PO (06:23)
[2019-01-30 06:43] LABS: ALBUMIN 3.8 g/dl (3.3-4.9); ANION GAP 9 (5-13); BLOOD UREA NITROGEN 17 mg/dl (7-20); CALCIUM 9.5 mg/dl (8.4-10.2); CARBON DIOXIDE 28 mmol/L (21-31); CHLORIDE 104 mmol/L (97-110); CREATININE 0.96 mg/dl (0.61-1.24); GLUCOSE 161 mg/dl (70-220); MAGNESIUM 2.1 mg/dl (1.7-2.5); PHOSPHORUS 4.2 mg/dl (2.5-4.9); POTASSIUM 4.8 mmol/L (3.5-5.1); SODIUM 141 mmol/L (135-144)
[2019-01-30] MEDS: DOCOSANOL 2 GM CREAM TOP ×5 (08:33→21:44)
[2019-01-30] MEDS: INSULIN ASPART [NOVOLOG] 3 ML PEN SC ×7 (08:37→21:00)
[2019-01-30] MEDS: INSULIN GLARGINE [LANTus] (100 UNITS/ML) SYG SC (08:38)
[2019-01-30] MEDS: HYDROCODONE/APAP (5/325) TAB PO (08:39)
[2019-01-30] MEDS: VANCOMYCIN HCL 1.75 GM in SOD CHLORIDE 0.9% 500 ML IVPB ×2 (10:04→21:42)
[2019-01-30] MEDS: SODIUM HYPOCHLORITE (1/40) 1 LITER BTL IRR (10:04)
[2019-01-30] MEDS: DEXTROSE 5%-0.45% NACL 1,000 ML IV ×2 (13:00→23:08)
[2019-01-30] MEDS ORDERED: OXYCODONE/ACETAMINOPHEN (5/325) TAB PO (17:30)
[2019-01-30] MEDS: DOCUSATE SODIUM 100 MG CAP PO (21:43)
[2019-01-31] MEDS: ACCU-CHEK XX (02:00)
[2019-01-31] MEDS: HEPARIN 5,000 UNIT/1 ML VIAL SC ×3 (06:00→21:36)
[2019-01-31] MEDS: LEVOFLOXACIN 750 MG TABLET PO (06:00)
[2019-01-31] MEDS: HYDROmorphONE 0.5 MG/0.5 ML SYG IV ×4 (06:07→21:38)
[2019-01-31 06:17] LABS: ADD MAN DIFF? NO
[2019-01-31 06:27] LABS: WHITE BLOOD COUNT 5.1 10^3/ul (4.8-10.8)
[2019-01-31 06:27] LABS: BASOPHILS % 0.8 % (0.0-2.0); EOSINOPHILS # 0.3 10^3/ul (0.0-0.5); EOSINOPHILS % 4.9 % (0.0-7.0); LYMPHOCYTES # 1.4 10^3/ul (0.8-2.9); LYMPHOCYTES % 26.8 % (15.0-51.0); MEAN CORPUSCULAR HEMOGLOBIN 26.7 pg (29.0-33.0); MEAN CORPUSCULAR HGB CONC 31.7 g/dl (32.0-37.0); MEAN CORPUSCULAR VOLUME 84.4 fl (82.0-101.0); MEAN PLATELET VOLUME 8.7 fl (7.4-10.4); MONOCYTE # 0.4 10^3/ul (0.3-0.9); MONOCYTES % 7.2 % (0.0-11.0); NEUTROPHIL # 3.1 10^3/ul (1.6-7.5); NEUTROPHILS % 59.7 % (39.0-77.0); PLATELET COUNT 461 10^3/UL (140-415); RED BLOOD COUNT 4.86 10^6/ul (4.70-6.10); RED CELL DISTRIBUTION WIDTH 13.5 % (11.5-14.5)
[2019-01-31 06:54] LABS: ANION GAP 12 (5-13); BLOOD UREA NITROGEN 20 mg/dl (7-20); CARBON DIOXIDE 24 mmol/L (21-31); CHLORIDE 100 mmol/L (97-110); CREATININE 0.85 mg/dl (0.61-1.24); Estimated GFR > 60 mL/min (>60); GLUCOSE 387 mg/dl (70-220); PHOSPHORUS 3.2 mg/dl (2.5-4.9); POTASSIUM 4.5 mmol/L (3.5-5.1); SODIUM 136 mmol/L (135-144)
[2019-01-31] MEDS ORDERED: FENTAnyl 50 MCG/ML VIAL (07:00)
[2019-01-31] MEDS: INSULIN ASPART [NOVOLOG] 3 ML PEN SC ×9 (07:00→20:21)
[2019-01-31] MEDS ORDERED: LIDOCAINE 2% (SDV) 5 ML INJ (07:00)
[2019-01-31] MEDS ORDERED: MIDAZOLAM 1 MG/ML 2 ML INJ (07:00)
[2019-01-31] MEDS ORDERED: PROPOFOL 40 ML ×2 (07:00→08:39)
[2019-01-31] MEDS ORDERED: ACETAMINOPHEN 500 MG TAB (07:12)
[2019-01-31] MEDS: ACETAMINOPHEN 325 MG TAB PO (07:20)
[2019-01-31] MEDS: ONDANSETRON 4 MG INJ IV (07:20)
[2019-01-31] MEDS ORDERED: DIPHENHYDRAMINE 50 MG INJ IV (07:30)
[2019-01-31] MEDS ORDERED: FENTAnyl 50 MCG/ML VIAL IV ×2 (07:30)
[2019-01-31] MEDS ORDERED: MEPERIDINE 25 MG INJ IV (07:30)
[2019-01-31] MEDS ORDERED: morphine (1 MG/ML) 10ML SYRINGE IV ×2 (07:30)
[2019-01-31] MEDS ORDERED: ONDANSETRON 4 MG INJ IV (07:30)
[2019-01-31] MEDS ORDERED: HYDROmorphONE 1 MG/5 ML IV SYRINGE IV ×2 (07:30)
[2019-01-31] MEDS ORDERED: ALBUTEROL 0.083% (NEB) 2.5 MG/3 ML AMP HHN (07:30)
[2019-01-31] MEDS ORDERED: OXYCODONE/ACETAMINOPHEN (5/325) TAB PO ×2 (07:30)
[2019-01-31] MEDS ORDERED: LABETALOL HCL 20MG INJ IV (07:30)
[2019-01-31] MEDS: POLYMYXIN/BACITRACIN 1L IRRIG (07:52)
[2019-01-31] MEDS: BUPIVACAINE 0.5% (SDV) 30 ML INJ (07:52)
[2019-01-31] MEDS: SODIUM HYPOCHLORITE (1/40) 1 LITER BTL IRR (07:55)
[2019-01-31] MEDS: LIDOCAINE 2% (MDV) 20 ML INJ (07:55)
[2019-01-31] MEDS: DEXTROSE 5%-0.45% NACL 1,000 ML IV (07:55)
[2019-01-31] MEDS: ACETAMINOPHEN 500 MG TAB PO (07:57)
[2019-01-31] MEDS ORDERED: SODIUM CL BACTERIOSTATIC 30 ML INJ (08:14)
[2019-01-31] MEDS ORDERED: PHENYLephrine (100 MCG/ML) 10ML SYG (08:50)
[2019-01-31] MEDS: BACITRACIN 50000 UNITS INJ (08:55)
[2019-01-31] MEDS: THROMBIN 5000 UNIT VIAL (08:55)
[2019-01-31] MEDS: POLYMYXIN B 500000 UNIT INJ (08:55)
[2019-01-31] MEDS: VANCOMYCIN 1 GM INJ (08:56)
[2019-01-31] MEDS: GELATIN SIZE 100 SPONGE (08:56)
[2019-01-31] MEDS: TOBRAMYCIN 1.2 GM POWDER (08:57)
[2019-01-31] MEDS: DOCUSATE SODIUM 100 MG CAP PO ×2 (09:00→20:19)
[2019-01-31] MEDS: DOCOSANOL 2 GM CREAM TOP ×5 (10:12→20:23)
[2019-01-31] MEDS: VANCOMYCIN HCL 1.75 GM in SOD CHLORIDE 0.9% 500 ML IVPB ×2 (10:13→20:25)
[2019-01-31] MEDS: INSULIN GLARGINE [LANTus] (100 UNITS/ML) SYG SC (10:16)
[2019-01-31 11:28] LABS: GLUCOSE 332 mg/dl (70-220)
[2019-01-31] MEDS: SOD CHLORIDE 0.9% 1,000 ML IV (14:06)
[2019-02-01] MEDS: ACCU-CHEK XX (02:00)
[2019-02-01] MEDS: LEVOFLOXACIN 750 MG TABLET PO (05:06)
[2019-02-01] MEDS: HEPARIN 5,000 UNIT/1 ML VIAL SC ×3 (05:06→22:00)
[2019-02-01] MEDS: HYDROmorphONE 0.5 MG/0.5 ML SYG IV ×4 (05:09→21:35)
[2019-02-01 05:58] LABS: ADD MAN DIFF? NO
[2019-02-01 06:26] LABS: HEMATOCRIT 38.8 % (42.0-52.0); HEMOGLOBIN 12.4 g/dl (14.0-18.0); LYMPHOCYTES % 27.8 % (15.0-51.0); MEAN CORPUSCULAR HEMOGLOBIN 27.1 pg (29.0-33.0); MEAN CORPUSCULAR VOLUME 84.9 fl (82.0-101.0); MEAN PLATELET VOLUME 8.9 fl (7.4-10.4); NEUTROPHILS % 58.6 % (39.0-77.0); PLATELET COUNT 491 10^3/UL (140-415); RED BLOOD COUNT 4.57 10^6/ul (4.70-6.10); RED CELL DISTRIBUTION WIDTH 13.3 % (11.5-14.5)
[2019-02-01 06:26] LABS: WHITE BLOOD COUNT 6.3 10^3/ul (4.8-10.8)
[2019-02-01 06:27] LABS: BASOPHILS % 0.6 % (0.0-2.0); EOSINOPHILS # 0.2 10^3/ul (0.0-0.5); EOSINOPHILS % 3.6 % (0.0-7.0); LYMPHOCYTES # 1.8 10^3/ul (0.8-2.9); MONOCYTE # 0.6 10^3/ul (0.3-0.9); MONOCYTES % 8.8 % (0.0-11.0); NEUTROPHIL # 3.7 10^3/ul (1.6-7.5)
[2019-02-01 06:52] LABS: ANION GAP 10 (5-13); BLOOD UREA NITROGEN 16 mg/dl (7-20); CALCIUM 9.2 mg/dl (8.4-10.2); CARBON DIOXIDE 27 mmol/L (21-31); CHLORIDE 104 mmol/L (97-110); CREATININE 0.83 mg/dl (0.61-1.24); Estimated GFR > 60 mL/min (>60); GLUCOSE 120 mg/dl (70-220); MAGNESIUM 1.9 mg/dl (1.7-2.5); PHOSPHORUS 3.4 mg/dl (2.5-4.9); POTASSIUM 4.1 mmol/L (3.5-5.1); SODIUM 141 mmol/L (135-144)
[2019-02-01] MEDS: HYDROCODONE/APAP (10/325) TAB PO (08:04)
[2019-02-01] MEDS: DOCUSATE SODIUM 100 MG CAP PO ×2 (08:15→21:00)
[2019-02-01] MEDS: INSULIN ASPART [NOVOLOG] 3 ML PEN SC ×7 (08:15→21:00)
[2019-02-01] MEDS: INSULIN GLARGINE [LANTus] (100 UNITS/ML) SYG SC (08:15)
[2019-02-01] MEDS: VANCOMYCIN HCL 1.75 GM in SOD CHLORIDE 0.9% 500 ML IVPB ×2 (08:16→21:24)
[2019-02-01] MEDS: SODIUM HYPOCHLORITE (1/40) 1 LITER BTL IRR (08:17)
[2019-02-01] MEDS: DIPHENHYDRAMINE 50 MG INJ IV ×2 (08:21→21:25)
[2019-02-01] MEDS: DOCOSANOL 2 GM CREAM TOP ×5 (08:24→21:34)
[2019-02-02] MEDS: HYDROCODONE/APAP (10/325) TAB PO ×3 (00:18→21:19)
[2019-02-02] MEDS: ACCU-CHEK XX (02:00)
[2019-02-02] MEDS: HEPARIN 5,000 UNIT/1 ML VIAL SC ×3 (06:00→21:21)
[2019-02-02] MEDS: LEVOFLOXACIN 750 MG TABLET PO (06:36)
[2019-02-02] MEDS: HYDROmorphONE 0.5 MG/0.5 ML SYG IV ×3 (07:42→19:43)
[2019-02-02] MEDS: INSULIN ASPART [NOVOLOG] 3 ML PEN SC ×7 (08:05→21:00)
[2019-02-02] MEDS: DOCUSATE SODIUM 100 MG CAP PO ×2 (08:06→21:00)
[2019-02-02] MEDS: INSULIN GLARGINE [LANTus] (100 UNITS/ML) SYG SC (08:06)
[2019-02-02 08:44] LABS: ADD MAN DIFF? NO
[2019-02-02 08:48] LABS: WHITE BLOOD COUNT 6.3 10^3/ul (4.8-10.8)
[2019-02-02 08:48] LABS: BASOPHILS % 0.5 % (0.0-2.0); EOSINOPHILS # 0.2 10^3/ul (0.0-0.5); EOSINOPHILS % 2.8 % (0.0-7.0); HEMOGLOBIN 12.1 g/dl (14.0-18.0); LYMPHOCYTES # 1.4 10^3/ul (0.8-2.9); LYMPHOCYTES % 22.3 % (15.0-51.0); MEAN CORPUSCULAR HEMOGLOBIN 26.9 pg (29.0-33.0); MEAN CORPUSCULAR HGB CONC 31.8 g/dl (32.0-37.0); MEAN CORPUSCULAR VOLUME 84.6 fl (82.0-101.0); MEAN PLATELET VOLUME 8.9 fl (7.4-10.4); MONOCYTE # 0.5 10^3/ul (0.3-0.9); MONOCYTES % 7.3 % (0.0-11.0); NEUTROPHIL # 4.2 10^3/ul (1.6-7.5); NEUTROPHILS % 66.3 % (39.0-77.0); PLATELET COUNT 475 10^3/UL (140-415); RED BLOOD COUNT 4.49 10^6/ul (4.70-6.10); RED CELL DISTRIBUTION WIDTH 13.4 % (11.5-14.5)
[2019-02-02] MEDS: DOCOSANOL 2 GM CREAM TOP ×5 (09:00→21:30)
[2019-02-02] MEDS: SODIUM HYPOCHLORITE (1/40) 1 LITER BTL IRR (09:00)
[2019-02-02 09:09] LABS: ANION GAP 11 (5-13); BLOOD UREA NITROGEN 15 mg/dl (7-20); CALCIUM 9.2 mg/dl (8.4-10.2); CARBON DIOXIDE 25 mmol/L (21-31); CHLORIDE 100 mmol/L (97-110); CREATININE 0.83 mg/dl (0.61-1.24); Estimated GFR > 60 mL/min (>60); MAGNESIUM 1.9 mg/dl (1.7-2.5); POTASSIUM 4.3 mmol/L (3.5-5.1); SODIUM 136 mmol/L (135-144)
[2019-02-02 09:12] LABS: VANCOMYCIN,TROUGH 12.1 ug/ml (10.0-20.0)
[2019-02-02 09:14] LABS: GLUCOSE 445 mg/dl (70-220)
[2019-02-02] MEDS: DIPHENHYDRAMINE 50 MG INJ IV ×2 (11:24→21:17)
[2019-02-02] MEDS: VANCOMYCIN HCL 1.75 GM in SOD CHLORIDE 0.9% 500 ML IVPB ×2 (11:24→21:17)
[2019-02-03] MEDS: ACCU-CHEK XX (01:52)
[2019-02-03] MEDS: HYDROmorphONE 0.5 MG/0.5 ML SYG IV ×4 (02:04→21:42)
[2019-02-03] MEDS: HEPARIN 5,000 UNIT/1 ML VIAL SC ×3 (06:00→21:44)
[2019-02-03 06:11] LABS: ADD MAN DIFF? NO
[2019-02-03 06:19] LABS: BASOPHIL # 0.1 10^3/ul (0.0-0.1); BASOPHILS % 0.8 % (0.0-2.0); EOSINOPHILS # 0.3 10^3/ul (0.0-0.5); EOSINOPHILS % 4.2 % (0.0-7.0); HEMATOCRIT 38.3 % (42.0-52.0); HEMOGLOBIN 12.3 g/dl (14.0-18.0); LYMPHOCYTES # 2.2 10^3/ul (0.8-2.9); LYMPHOCYTES % 35.9 % (15.0-51.0); MEAN CORPUSCULAR HEMOGLOBIN 26.9 pg (29.0-33.0); MEAN CORPUSCULAR HGB CONC 32.1 g/dl (32.0-37.0); MEAN CORPUSCULAR VOLUME 83.8 fl (82.0-101.0); MEAN PLATELET VOLUME 9.2 fl (7.4-10.4); MONOCYTE # 0.5 10^3/ul (0.3-0.9); MONOCYTES % 8.7 % (0.0-11.0); NEUTROPHIL # 3.1 10^3/ul (1.6-7.5); NEUTROPHILS % 49.9 % (39.0-77.0); PLATELET COUNT 482 10^3/UL (140-415); RED BLOOD COUNT 4.57 10^6/ul (4.70-6.10); RED CELL DISTRIBUTION WIDTH 13.3 % (11.5-14.5)
[2019-02-03 06:19] LABS: WHITE BLOOD COUNT 6.1 10^3/ul (4.8-10.8)
[2019-02-03] MEDS: LEVOFLOXACIN 750 MG TABLET PO (06:50)
[2019-02-03 06:53] LABS: ANION GAP 11 (5-13); BLOOD UREA NITROGEN 19 mg/dl (7-20); CALCIUM 9.4 mg/dl (8.4-10.2); CARBON DIOXIDE 26 mmol/L (21-31); CHLORIDE 99 mmol/L (97-110); CREATININE 0.91 mg/dl (0.61-1.24); Estimated GFR > 60 mL/min (>60); GLUCOSE 344 mg/dl (70-220); MAGNESIUM 1.8 mg/dl (1.7-2.5); PHOSPHORUS 3.7 mg/dl (2.5-4.9); POTASSIUM 4.4 mmol/L (3.5-5.1); SODIUM 136 mmol/L (135-144)
[2019-02-03] MEDS: DOCUSATE SODIUM 100 MG CAP PO ×2 (08:10→21:39)
[2019-02-03] MEDS: INSULIN ASPART [NOVOLOG] 3 ML PEN SC ×7 (08:16→21:00)
[2019-02-03] MEDS: INSULIN GLARGINE [LANTus] (100 UNITS/ML) SYG SC (08:17)
[2019-02-03] MEDS: DIPHENHYDRAMINE 50 MG INJ IV ×2 (08:59→21:39)
[2019-02-03] MEDS: VANCOMYCIN HCL 1.75 GM in SOD CHLORIDE 0.9% 500 ML IVPB ×2 (09:00→21:41)
[2019-02-03] MEDS: DOCOSANOL 2 GM CREAM TOP ×5 (09:00→21:00)
[2019-02-03] MEDS: SODIUM HYPOCHLORITE (1/40) 1 LITER BTL IRR (09:00)
[2019-02-03] MEDS: HYDROCODONE/APAP (10/325) TAB PO ×2 (12:30→19:30)
[2019-02-04] MEDS: ACCU-CHEK XX (01:41)
[2019-02-04] MEDS: HYDROmorphONE 0.5 MG/0.5 ML SYG IV ×5 (02:06→20:08)
[2019-02-04] MEDS: LEVOFLOXACIN 750 MG TABLET PO (05:45)
[2019-02-04] MEDS: HEPARIN 5,000 UNIT/1 ML VIAL SC ×3 (05:49→21:54)
[2019-02-04 06:23] LABS: ADD MAN DIFF? NO
[2019-02-04 06:33] LABS: BASOPHIL # 0.1 10^3/ul (0.0-0.1); EOSINOPHILS # 0.3 10^3/ul (0.0-0.5); EOSINOPHILS % 4.4 % (0.0-7.0); HEMATOCRIT 40.3 % (42.0-52.0); LYMPHOCYTES # 2.3 10^3/ul (0.8-2.9); LYMPHOCYTES % 34.2 % (15.0-51.0); MEAN CORPUSCULAR HEMOGLOBIN 26.9 pg (29.0-33.0); MEAN CORPUSCULAR HGB CONC 32.3 g/dl (32.0-37.0); MEAN CORPUSCULAR VOLUME 83.3 fl (82.0-101.0); MONOCYTE # 0.6 10^3/ul (0.3-0.9); NEUTROPHIL # 3.5 10^3/ul (1.6-7.5); NEUTROPHILS % 51.7 % (39.0-77.0); PLATELET COUNT 555 10^3/UL (140-415); RED BLOOD COUNT 4.84 10^6/ul (4.70-6.10); RED CELL DISTRIBUTION WIDTH 13.6 % (11.5-14.5)
[2019-02-04 06:33] LABS: WHITE BLOOD COUNT 6.9 10^3/ul (4.8-10.8)
[2019-02-04 07:14] LABS: ANION GAP 10 (5-13); BLOOD UREA NITROGEN 20 mg/dl (7-20); CALCIUM 9.5 mg/dl (8.4-10.2); CARBON DIOXIDE 27 mmol/L (21-31); CHLORIDE 101 mmol/L (97-110); CREATININE 0.91 mg/dl (0.61-1.24); Estimated GFR > 60 mL/min (>60); GLUCOSE 210 mg/dl (70-220); PHOSPHORUS 4.6 mg/dl (2.5-4.9); POTASSIUM 4.2 mmol/L (3.5-5.1); SODIUM 138 mmol/L (135-144)
[2019-02-04] MEDS: INSULIN GLARGINE [LANTus] (100 UNITS/ML) SYG SC (08:09)
[2019-02-04] MEDS: INSULIN ASPART [NOVOLOG] 3 ML PEN SC ×7 (08:10→21:00)
[2019-02-04] MEDS: VANCOMYCIN HCL 1.75 GM in SOD CHLORIDE 0.9% 500 ML IVPB ×2 (08:11→21:53)
[2019-02-04] MEDS: DIPHENHYDRAMINE 50 MG INJ IV ×2 (08:13→21:54)
[2019-02-04] MEDS: SODIUM HYPOCHLORITE (1/40) 1 LITER BTL IRR (08:14)
[2019-02-04] MEDS: DOCUSATE SODIUM 100 MG CAP PO ×2 (08:14→21:55)
[2019-02-04] MEDS: DOCOSANOL 2 GM CREAM TOP ×5 (08:14→21:00)
[2019-02-05] MEDS: HYDROCODONE/APAP (10/325) TAB PO (01:56)
[2019-02-05] MEDS: ACCU-CHEK XX (02:00)
[2019-02-05 05:15] LABS: ADD MAN DIFF? NO
[2019-02-05] MEDS: HYDROmorphONE 0.5 MG/0.5 ML SYG IV ×3 (05:24→21:13)
[2019-02-05] MEDS: HEPARIN 5,000 UNIT/1 ML VIAL SC ×3 (05:27→22:00)
[2019-02-05] MEDS: LEVOFLOXACIN 750 MG TABLET PO (05:27)
[2019-02-05 05:29] LABS: BASOPHIL # 0.1 10^3/ul (0.0-0.1); EOSINOPHILS # 0.3 10^3/ul (0.0-0.5); EOSINOPHILS % 5.3 % (0.0-7.0); LYMPHOCYTES % 33.5 % (15.0-51.0); MEAN CORPUSCULAR HEMOGLOBIN 26.9 pg (29.0-33.0); MEAN CORPUSCULAR HGB CONC 31.7 g/dl (32.0-37.0); MEAN CORPUSCULAR VOLUME 84.7 fl (82.0-101.0); MEAN PLATELET VOLUME 8.9 fl (7.4-10.4); MONOCYTE # 0.5 10^3/ul (0.3-0.9); MONOCYTES % 8.5 % (0.0-11.0); NEUTROPHIL # 3.1 10^3/ul (1.6-7.5); NEUTROPHILS % 50.9 % (39.0-77.0); PLATELET COUNT 543 10^3/UL (140-415); RED BLOOD COUNT 4.84 10^6/ul (4.70-6.10); RED CELL DISTRIBUTION WIDTH 13.5 % (11.5-14.5)
[2019-02-05 05:47] LABS: ANION GAP 10 (5-13); BLOOD UREA NITROGEN 23 mg/dl (7-20); CALCIUM 9.3 mg/dl (8.4-10.2); CARBON DIOXIDE 30 mmol/L (21-31); CHLORIDE 98 mmol/L (97-110); Estimated GFR > 60 mL/min (>60); GLUCOSE 268 mg/dl (70-220); MAGNESIUM 1.9 mg/dl (1.7-2.5); PHOSPHORUS 3.6 mg/dl (2.5-4.9); POTASSIUM 4.4 mmol/L (3.5-5.1); SODIUM 138 mmol/L (135-144)
[2019-02-05] MEDS: INSULIN ASPART [NOVOLOG] 3 ML PEN SC ×8 (08:37→21:00)
[2019-02-05] MEDS: DIPHENHYDRAMINE 50 MG INJ IV ×2 (08:44→21:03)
[2019-02-05] MEDS: VANCOMYCIN HCL 1.75 GM in SOD CHLORIDE 0.9% 500 ML IVPB ×2 (08:45→21:02)
[2019-02-05] MEDS: DOCUSATE SODIUM 100 MG CAP PO ×2 (08:48→21:01)
[2019-02-05] MEDS: SODIUM HYPOCHLORITE (1/40) 1 LITER BTL IRR (08:48)
[2019-02-05] MEDS: DOCOSANOL 2 GM CREAM TOP ×5 (08:49→21:00)
[2019-02-05 08:51] LABS: VANCOMYCIN,TROUGH 15.3 ug/ml (10.0-20.0)
[2019-02-05] MEDS: INSULIN GLARGINE [LANTus] (100 UNITS/ML) SYG SC (09:07)
[2019-02-05] MEDS: GLUCOSE GEL 15 GRAM TUBE BUCCAL (13:14)
[2019-02-05] MEDS: DEXTROSE 5%-0.45% NACL 1,000 ML IV (13:16)
[2019-02-05] MEDS: morphine 2 MG INJ IV (15:20)
[2019-02-06] MEDS: INSULIN ASPART [NOVOLOG] 3 ML PEN SC ×9 (01:16→20:19)
[2019-02-06] MEDS: ACCU-CHEK XX (01:22)
[2019-02-06] MEDS: HYDROmorphONE 0.5 MG/0.5 ML SYG IV ×4 (04:44→21:11)
[2019-02-06] MEDS: LEVOFLOXACIN 750 MG TABLET PO (05:51)
[2019-02-06] MEDS: HEPARIN 5,000 UNIT/1 ML VIAL SC ×3 (05:53→21:07)
[2019-02-06] MEDS: HYDROCODONE/APAP (10/325) TAB PO (08:41)
[2019-02-06] MEDS: DOCUSATE SODIUM 100 MG CAP PO ×2 (08:41→20:16)
[2019-02-06] MEDS: VANCOMYCIN HCL 1.75 GM in SOD CHLORIDE 0.9% 500 ML IVPB ×2 (08:41→21:12)
[2019-02-06] MEDS: INSULIN GLARGINE [LANTus] (100 UNITS/ML) SYG SC (08:45)
[2019-02-06] MEDS: DOCOSANOL 2 GM CREAM TOP ×5 (08:46→20:16)
[2019-02-06] MEDS: SODIUM HYPOCHLORITE (1/40) 1 LITER BTL IRR (08:46)
[2019-02-06] MEDS: DIPHENHYDRAMINE 50 MG INJ IV ×2 (08:53→21:11)
[2019-02-07] MEDS: ACCU-CHEK XX (01:15)
[2019-02-07] MEDS: INSULIN ASPART [NOVOLOG] 3 ML PEN SC ×9 (01:25→21:00)
[2019-02-07] MEDS: HYDROmorphONE 0.5 MG/0.5 ML SYG IV ×5 (01:27→20:46)
[2019-02-07] MEDS: HEPARIN 5,000 UNIT/1 ML VIAL SC ×3 (04:29→21:01)
[2019-02-07] MEDS: LEVOFLOXACIN 750 MG TABLET PO (04:29)
[2019-02-07 06:19] LABS: BLOOD UREA NITROGEN 20 mg/dl (7-20)
[2019-02-07 06:19] LABS: CREATININE 1.02 mg/dl (0.61-1.24)
[2019-02-07] MEDS: SODIUM HYPOCHLORITE (1/40) 1 LITER BTL IRR (08:07)
[2019-02-07] MEDS: DOCUSATE SODIUM 100 MG CAP PO ×2 (08:07→20:45)
[2019-02-07] MEDS: VANCOMYCIN HCL 1.75 GM in SOD CHLORIDE 0.9% 500 ML IVPB ×2 (08:08→20:44)
[2019-02-07] MEDS: DIPHENHYDRAMINE 50 MG INJ IV ×2 (08:08→20:42)
[2019-02-07] MEDS: INSULIN GLARGINE [LANTus] (100 UNITS/ML) SYG SC (08:12)
[2019-02-07] MEDS: DOCOSANOL 2 GM CREAM TOP ×3 (08:13→21:02)
[2019-02-07] MEDS ORDERED: MIDAZOLAM 1 MG/ML 2 ML INJ (12:53)
[2019-02-07] MEDS ORDERED: FENTAnyl 50 MCG/ML VIAL (12:53)
[2019-02-07] MEDS ORDERED: HEPARIN 1000 UNITS/NS (A-LINE) 1,000 ML (13:04)
[2019-02-07] MEDS ORDERED: LIDOCAINE 1% (MDV) 20 ML INJ (13:04)
[2019-02-07] MEDS ORDERED: IODIXANOL LOCM 100 ML BTL (13:04)
[2019-02-07] MEDS ORDERED: SOD CHLORIDE 0.9% 500 ML (13:04)
[2019-02-07] MEDS: morphine 2 MG INJ IV (14:10)
[2019-02-07] MEDS: LACTATED RINGER'S 1,000 ML IV (14:42)
[2019-02-07] MEDS: HYDROCODONE/APAP (10/325) TAB PO (23:08)
[2019-02-08] MEDS: ACCUCHECK AT 2AM (Patients on SS coverage) XX (02:00)
[2019-02-08] MEDS: ACCU-CHEK XX (02:00)
[2019-02-08] MEDS: HYDROmorphONE 0.5 MG/0.5 ML SYG IV ×5 (02:05→19:56)
[2019-02-08] MEDS: LEVOFLOXACIN 750 MG TABLET PO (05:14)
[2019-02-08] MEDS: HYDROCODONE/APAP (10/325) TAB PO ×2 (05:16→22:15)
[2019-02-08] MEDS: HEPARIN 5,000 UNIT/1 ML VIAL SC ×3 (05:18→22:26)
[2019-02-08 05:48] LABS: ADD MAN DIFF? NO
[2019-02-08 05:52] LABS: WHITE BLOOD COUNT 5.8 10^3/ul (4.8-10.8)
[2019-02-08 05:52] LABS: BASOPHIL # 0.1 10^3/ul (0.0-0.1); BASOPHILS % 0.9 % (0.0-2.0); EOSINOPHILS # 0.3 10^3/ul (0.0-0.5); EOSINOPHILS % 4.5 % (0.0-7.0); HEMATOCRIT 39.8 % (42.0-52.0); HEMOGLOBIN 12.7 g/dl (14.0-18.0); LYMPHOCYTES # 1.9 10^3/ul (0.8-2.9); LYMPHOCYTES % 32.9 % (15.0-51.0); MEAN CORPUSCULAR HEMOGLOBIN 27.1 pg (29.0-33.0); MEAN CORPUSCULAR HGB CONC 31.9 g/dl (32.0-37.0); MEAN CORPUSCULAR VOLUME 84.9 fl (82.0-101.0); MEAN PLATELET VOLUME 9.2 fl (7.4-10.4); MONOCYTE # 0.3 10^3/ul (0.3-0.9); MONOCYTES % 5.2 % (0.0-11.0); NEUTROPHIL # 3.2 10^3/ul (1.6-7.5); PLATELET COUNT 515 10^3/UL (140-415); RED BLOOD COUNT 4.69 10^6/ul (4.70-6.10); RED CELL DISTRIBUTION WIDTH 13.5 % (11.5-14.5)
[2019-02-08 06:33] LABS: ALBUMIN 3.5 g/dl (3.3-4.9); ANION GAP 8 (5-13); BLOOD UREA NITROGEN 18 mg/dl (7-20); CARBON DIOXIDE 27 mmol/L (21-31); CHLORIDE 102 mmol/L (97-110); CREATININE 0.84 mg/dl (0.61-1.24); GLUCOSE 370 mg/dl (70-220); MAGNESIUM 1.8 mg/dl (1.7-2.5); PHOSPHORUS 3.8 mg/dl (2.5-4.9); POTASSIUM 4.5 mmol/L (3.5-5.1); SODIUM 137 mmol/L (135-144)
[2019-02-08] MEDS ORDERED: INSULIN ASPART [NOVOLOG] 3 ML PEN SC (08:00)
[2019-02-08] MEDS: Insulin NOVOLOG SS MODERATE Algorithm (SS with meals and bedtime) SC ×4 (08:31→20:01)
[2019-02-08] MEDS: INSULIN ASPART [NOVOLOG] 3 ML PEN SC ×3 (08:31→18:01)
[2019-02-08] MEDS: VANCOMYCIN HCL 1.75 GM in SOD CHLORIDE 0.9% 500 ML IVPB ×2 (08:36→22:15)
[2019-02-08] MEDS: DOCUSATE SODIUM 100 MG CAP PO ×2 (08:36→19:56)
[2019-02-08] MEDS: SODIUM HYPOCHLORITE (1/40) 1 LITER BTL IRR (08:38)
[2019-02-08] MEDS: DIPHENHYDRAMINE 50 MG INJ IV ×2 (08:48→22:16)
[2019-02-08] MEDS: INSULIN GLARGINE [LANTus] (100 UNITS/ML) SYG SC (08:48)
[2019-02-08] MEDS: VITAMIN A & D 5 GM OINT PACKET TOP (19:59)
[2019-02-08 21:07] LABS: VANCOMYCIN,TROUGH 16.3 ug/ml (10.0-20.0)
[2019-02-09] MEDS: ACCU-CHEK XX (02:00)
[2019-02-09] MEDS: ACCUCHECK AT 2AM (Patients on SS coverage) XX (02:00)
[2019-02-09] MEDS: HYDROmorphONE 0.5 MG/0.5 ML SYG IV ×4 (03:37→21:46)
[2019-02-09] MEDS: HEPARIN 5,000 UNIT/1 ML VIAL SC ×3 (04:49→21:46)
[2019-02-09] MEDS: HYDROCODONE/APAP (10/325) TAB PO ×2 (06:07→23:17)
[2019-02-09] MEDS: LEVOFLOXACIN 750 MG TABLET PO (06:07)
[2019-02-09] MEDS: SODIUM HYPOCHLORITE (1/40) 1 LITER BTL IRR (07:44)
[2019-02-09] MEDS: DEXTROSE 5% 1,000 ML IV (08:00)
[2019-02-09] MEDS: INSULIN ASPART [NOVOLOG] 3 ML PEN SC ×6 (08:00→18:00)
[2019-02-09] MEDS: DOCUSATE SODIUM 100 MG CAP PO ×2 (09:00→21:44)
[2019-02-09] MEDS: VANCOMYCIN HCL 1.75 GM in SOD CHLORIDE 0.9% 500 ML IVPB ×2 (09:39→21:46)
[2019-02-09] MEDS: DEXTROSE 5%-0.45% NACL 1,000 ML IV ×2 (09:39→18:30)
[2019-02-09] MEDS: DIPHENHYDRAMINE 50 MG INJ IV ×2 (09:43→21:44)
[2019-02-09] MEDS: INSULIN GLARGINE [LANTus] (100 UNITS/ML) SYG SC (09:45)
[2019-02-09] MEDS ORDERED: MIDAZOLAM 1 MG/ML 2 ML INJ (17:50)
[2019-02-09] MEDS ORDERED: MINERAL OIL LIGHT 10 ML VIAL (17:59)
[2019-02-09] MEDS ORDERED: LIDOCAINE 1% (MPF) 30 ML INJ (17:59)
[2019-02-09] MEDS ORDERED: BUPIVACAINE 0.5%/EPI (SDV) 30 ML INJ (17:59)
[2019-02-09] MEDS ORDERED: BUPIVACAINE 0.5% (SDV) 30 ML INJ (17:59)
[2019-02-09] MEDS: POLYMYXIN/BACITRACIN 1L IRRIG (18:20)
[2019-02-09] MEDS ORDERED: GELATIN SIZE 100 SPONGE (19:46)
[2019-02-09] MEDS ORDERED: THROMBIN (BOVINE) 5,000 UNIT VIAL TP (19:46)
[2019-02-09] MEDS ORDERED: CEFAZOLIN 1 GM INJ (20:23)
[2019-02-09] MEDS ORDERED: ETOMIDATE 20 MG INJ (20:23)
[2019-02-09] MEDS ORDERED: LIDOCAINE 2% (SDV) 5 ML INJ (20:23)
[2019-02-09] MEDS ORDERED: PROPOFOL 20 ML (20:23)
[2019-02-09] MEDS ORDERED: ONDANSETRON 4 MG INJ (20:23)
[2019-02-09] MEDS: ONDANSETRON 4 MG INJ IV (20:58)
[2019-02-09] MEDS ORDERED: METOCLOPRAMIDE 10 MG INJ IV (21:00)
[2019-02-09] MEDS ORDERED: HYDROmorphONE 1 MG/5 ML IV SYRINGE IV ×2 (21:00)
[2019-02-09] MEDS ORDERED: MEPERIDINE 25 MG INJ IV (21:00)
[2019-02-09] MEDS ORDERED: DIPHENHYDRAMINE 50 MG INJ IV (21:00)
[2019-02-09] MEDS ORDERED: FENTAnyl 50 MCG/ML VIAL IV (21:00)
[2019-02-09] MEDS: CYCLOBENZAPRINE 10 MG TAB PO (23:17)
[2019-02-09] MEDS: KETOROLAC 30 MG INJ IV (23:18)
[2019-02-10] MEDS: ACCU-CHEK XX (02:00)
[2019-02-10] MEDS: HYDROmorphONE 0.5 MG/0.5 ML SYG IV ×4 (05:16→20:13)
[2019-02-10] MEDS: KETOROLAC 30 MG INJ IV ×2 (05:16→20:12)
[2019-02-10] MEDS: LEVOFLOXACIN 750 MG TABLET PO (05:17)
[2019-02-10] MEDS: ONDANSETRON 4 MG INJ IV (05:17)
[2019-02-10] MEDS: HEPARIN 5,000 UNIT/1 ML VIAL SC ×3 (06:00→22:03)
[2019-02-10] MEDS: DOCUSATE SODIUM 100 MG CAP PO ×2 (08:55→20:12)
[2019-02-10] MEDS: CYCLOBENZAPRINE 10 MG TAB PO ×3 (08:55→20:12)
[2019-02-10] MEDS: VANCOMYCIN HCL 1.75 GM in SOD CHLORIDE 0.9% 500 ML IVPB ×2 (08:56→21:39)
[2019-02-10] MEDS: morphine 2 MG INJ IV ×2 (08:57→17:58)
[2019-02-10] MEDS: SODIUM HYPOCHLORITE (1/40) 1 LITER BTL IRR (09:00)
[2019-02-10] MEDS: INSULIN ASPART [NOVOLOG] 3 ML PEN SC ×8 (09:10→21:45)
[2019-02-10] MEDS: DIPHENHYDRAMINE 50 MG INJ IV ×2 (09:12→21:39)
[2019-02-10] MEDS: INSULIN GLARGINE [LANTus] (100 UNITS/ML) SYG SC (09:12)
[2019-02-10] MEDS: HYDROCODONE/APAP (10/325) TAB PO (21:40)
[2019-02-11] MEDS: HYDROCODONE/APAP (10/325) TAB PO ×3 (01:46→13:28)
[2019-02-11] MEDS: HYDROmorphONE 0.5 MG/0.5 ML SYG IV ×5 (01:49→20:25)
[2019-02-11] MEDS: ACCU-CHEK XX (02:00)
[2019-02-11] MEDS: KETOROLAC 30 MG INJ IV (05:38)
[2019-02-11] MEDS: HEPARIN 5,000 UNIT/1 ML VIAL SC ×3 (05:41→21:37)
[2019-02-11] MEDS: LEVOFLOXACIN 750 MG TABLET PO (05:45)
[2019-02-11 06:59] LABS: BLOOD UREA NITROGEN 14 mg/dl (7-20)
[2019-02-11 06:59] LABS: CREATININE 0.88 mg/dl (0.61-1.24)
[2019-02-11] MEDS: INSULIN ASPART [NOVOLOG] 3 ML PEN SC ×7 (08:00→20:38)
[2019-02-11] MEDS: INSULIN GLARGINE [LANTus] (100 UNITS/ML) SYG SC (08:19)
[2019-02-11] MEDS: CYCLOBENZAPRINE 10 MG TAB PO ×3 (08:20→20:23)
[2019-02-11] MEDS: DOCUSATE SODIUM 100 MG CAP PO ×2 (08:20→20:23)
[2019-02-11] MEDS: DIPHENHYDRAMINE 50 MG INJ IV ×2 (08:46→20:40)
[2019-02-11] MEDS: VANCOMYCIN HCL 1.75 GM in SOD CHLORIDE 0.9% 500 ML IVPB ×2 (08:48→20:23)
[2019-02-11] MEDS: SODIUM HYPOCHLORITE (1/40) 1 LITER BTL IRR (08:51)
[2019-02-11] MEDS: morphine 2 MG INJ IV (22:11)
[2019-02-12] MEDS: HYDROmorphONE 0.5 MG/0.5 ML SYG IV ×5 (00:11→17:59)
[2019-02-12] MEDS: ACCU-CHEK XX (01:27)
[2019-02-12] MEDS: LEVOFLOXACIN 750 MG TABLET PO (05:18)
[2019-02-12] MEDS: HEPARIN 5,000 UNIT/1 ML VIAL SC ×3 (05:21→21:17)
[2019-02-12] MEDS: INSULIN ASPART [NOVOLOG] 3 ML PEN SC ×7 (07:54→21:00)
[2019-02-12] MEDS: INSULIN GLARGINE [LANTus] (100 UNITS/ML) SYG SC (08:00)
[2019-02-12] MEDS: CYCLOBENZAPRINE 10 MG TAB PO ×3 (08:01→20:16)
[2019-02-12] MEDS: DOCUSATE SODIUM 100 MG CAP PO ×2 (08:01→20:16)
[2019-02-12] MEDS: SODIUM HYPOCHLORITE (1/40) 1 LITER BTL IRR (08:02)
[2019-02-12 08:39] LABS: ADD MAN DIFF? NO
[2019-02-12 08:42] LABS: BASOPHIL # 0.1 10^3/ul (0.0-0.1); BASOPHILS % 0.8 % (0.0-2.0); EOSINOPHILS # 0.4 10^3/ul (0.0-0.5); EOSINOPHILS % 6.2 % (0.0-7.0); HEMATOCRIT 37.3 % (42.0-52.0); HEMOGLOBIN 11.9 g/dl (14.0-18.0); LYMPHOCYTES % 31.2 % (15.0-51.0); MEAN CORPUSCULAR HEMOGLOBIN 27.2 pg (29.0-33.0); MEAN CORPUSCULAR HGB CONC 31.9 g/dl (32.0-37.0); MEAN CORPUSCULAR VOLUME 85.2 fl (82.0-101.0); MEAN PLATELET VOLUME 9.4 fl (7.4-10.4); MONOCYTE # 0.4 10^3/ul (0.3-0.9); MONOCYTES % 6.7 % (0.0-11.0); NEUTROPHIL # 3.4 10^3/ul (1.6-7.5); NEUTROPHILS % 54.6 % (39.0-77.0); PLATELET COUNT 428 10^3/UL (140-415); RED BLOOD COUNT 4.38 10^6/ul (4.70-6.10); RED CELL DISTRIBUTION WIDTH 13.5 % (11.5-14.5)
[2019-02-12 08:42] LABS: WHITE BLOOD COUNT 6.3 10^3/ul (4.8-10.8)
[2019-02-12 09:05] LABS: ALBUMIN 3.6 g/dl (3.3-4.9); ANION GAP 8 (5-13); BLOOD UREA NITROGEN 14 mg/dl (7-20); CALCIUM 9.1 mg/dl (8.4-10.2); CARBON DIOXIDE 26 mmol/L (21-31); CHLORIDE 106 mmol/L (97-110); CREATININE 0.92 mg/dl (0.61-1.24); GLUCOSE 149 mg/dl (70-220); MAGNESIUM 1.8 mg/dl (1.7-2.5); PHOSPHORUS 3.9 mg/dl (2.5-4.9); POTASSIUM 3.8 mmol/L (3.5-5.1); SODIUM 140 mmol/L (135-144)
[2019-02-12] MEDS: DIPHENHYDRAMINE 50 MG INJ IV ×2 (09:34→21:12)
[2019-02-12] MEDS: VANCOMYCIN HCL 1.75 GM in SOD CHLORIDE 0.9% 500 ML IVPB ×2 (09:35→21:12)
[2019-02-12] MEDS: HYDROCODONE/APAP (10/325) TAB PO (20:16)
[2019-02-13] MEDS: HYDROmorphONE 0.5 MG/0.5 ML SYG IV ×3 (00:25→23:19)
[2019-02-13] MEDS: ACCU-CHEK XX (02:00)
[2019-02-13 05:23] LABS: ADD MAN DIFF? NO
[2019-02-13 05:29] LABS: WHITE BLOOD COUNT 7.5 10^3/ul (4.8-10.8)
[2019-02-13 05:29] LABS: BASOPHIL # 0.1 10^3/ul (0.0-0.1); BASOPHILS % 0.8 % (0.0-2.0); EOSINOPHILS # 0.2 10^3/ul (0.0-0.5); EOSINOPHILS % 2.4 % (0.0-7.0); HEMOGLOBIN 11.5 g/dl (14.0-18.0); LYMPHOCYTES # 2.1 10^3/ul (0.8-2.9); LYMPHOCYTES % 27.2 % (15.0-51.0); MEAN CORPUSCULAR HGB CONC 31.9 g/dl (32.0-37.0); MEAN CORPUSCULAR VOLUME 84.5 fl (82.0-101.0); MEAN PLATELET VOLUME 9.8 fl (7.4-10.4); MONOCYTE # 0.5 10^3/ul (0.3-0.9); MONOCYTES % 6.1 % (0.0-11.0); NEUTROPHIL # 4.7 10^3/ul (1.6-7.5); PLATELET COUNT 451 10^3/UL (140-415); RED BLOOD COUNT 4.26 10^6/ul (4.70-6.10); RED CELL DISTRIBUTION WIDTH 13.6 % (11.5-14.5)
[2019-02-13] MEDS: LEVOFLOXACIN 750 MG TABLET PO (05:50)
[2019-02-13] MEDS: HEPARIN 5,000 UNIT/1 ML VIAL SC ×3 (05:53→21:58)
[2019-02-13 06:12] LABS: ANION GAP 10 (5-13); BLOOD UREA NITROGEN 17 mg/dl (7-20); CALCIUM 9.2 mg/dl (8.4-10.2); CARBON DIOXIDE 26 mmol/L (21-31); CHLORIDE 103 mmol/L (97-110); CREATININE 0.99 mg/dl (0.61-1.24); Estimated GFR > 60 mL/min (>60); GLUCOSE 288 mg/dl (70-220); MAGNESIUM 1.9 mg/dl (1.7-2.5); PHOSPHORUS 3.6 mg/dl (2.5-4.9); POTASSIUM 4.3 mmol/L (3.5-5.1); SODIUM 139 mmol/L (135-144)
[2019-02-13] MEDS: HYDROCODONE/APAP (10/325) TAB PO ×2 (07:42→20:12)
[2019-02-13] MEDS: DOCUSATE SODIUM 100 MG CAP PO ×2 (08:05→20:12)
[2019-02-13] MEDS: CYCLOBENZAPRINE 10 MG TAB PO ×3 (08:05→20:12)
[2019-02-13] MEDS: SODIUM HYPOCHLORITE (1/40) 1 LITER BTL IRR (08:06)
[2019-02-13] MEDS: INSULIN ASPART [NOVOLOG] 3 ML PEN SC ×7 (08:15→20:19)
[2019-02-13] MEDS: INSULIN GLARGINE [LANTus] (100 UNITS/ML) SYG SC (08:16)
[2019-02-13] MEDS: VANCOMYCIN HCL 1.75 GM in SOD CHLORIDE 0.9% 500 ML IVPB ×2 (08:28→20:12)
[2019-02-13] MEDS: DIPHENHYDRAMINE 50 MG INJ IV ×2 (08:31→20:12)
[2019-02-13] MEDS: morphine 2 MG INJ IV ×2 (12:52→17:49)
[2019-02-14] MEDS: morphine 2 MG INJ IV (00:47)
[2019-02-14] MEDS: ACCU-CHEK XX (01:44)
[2019-02-14] MEDS: HYDROmorphONE 0.5 MG/0.5 ML SYG IV ×4 (03:46→20:50)
[2019-02-14 05:18] LABS: ADD MAN DIFF? NO
[2019-02-14 05:27] LABS: BASOPHIL # 0.1 10^3/ul (0.0-0.1); BASOPHILS % 1.1 % (0.0-2.0); EOSINOPHILS # 0.3 10^3/ul (0.0-0.5); EOSINOPHILS % 4.4 % (0.0-7.0); HEMATOCRIT 38.2 % (42.0-52.0); HEMOGLOBIN 12.3 g/dl (14.0-18.0); LYMPHOCYTES # 2.3 10^3/ul (0.8-2.9); LYMPHOCYTES % 35.4 % (15.0-51.0); MEAN CORPUSCULAR HGB CONC 32.2 g/dl (32.0-37.0); MEAN CORPUSCULAR VOLUME 83.8 fl (82.0-101.0); MEAN PLATELET VOLUME 9.7 fl (7.4-10.4); MONOCYTE # 0.5 10^3/ul (0.3-0.9); MONOCYTES % 7.2 % (0.0-11.0); NEUTROPHIL # 3.3 10^3/ul (1.6-7.5); NEUTROPHILS % 51.4 % (39.0-77.0); PLATELET COUNT 445 10^3/UL (140-415); RED BLOOD COUNT 4.56 10^6/ul (4.70-6.10); RED CELL DISTRIBUTION WIDTH 13.7 % (11.5-14.5)
[2019-02-14 05:27] LABS: WHITE BLOOD COUNT 6.4 10^3/ul (4.8-10.8)
[2019-02-14] MEDS: LEVOFLOXACIN 750 MG TABLET PO (05:52)
[2019-02-14] MEDS: HYDROCODONE/APAP (10/325) TAB PO ×2 (05:58→22:31)
[2019-02-14] MEDS: HEPARIN 5,000 UNIT/1 ML VIAL SC ×3 (06:00→21:30)
[2019-02-14 06:33] LABS: ANION GAP 11 (5-13); BLOOD UREA NITROGEN 22 mg/dl (7-20); CALCIUM 9.6 mg/dl (8.4-10.2); CARBON DIOXIDE 26 mmol/L (21-31); CHLORIDE 103 mmol/L (97-110); CREATININE 1.14 mg/dl (0.61-1.24); Estimated GFR > 60 mL/min (>60); GLUCOSE 124 mg/dl (70-220); MAGNESIUM 1.9 mg/dl (1.7-2.5); PHOSPHORUS 4.3 mg/dl (2.5-4.9); POTASSIUM 3.9 mmol/L (3.5-5.1); SODIUM 140 mmol/L (135-144)
[2019-02-14] MEDS: INSULIN ASPART [NOVOLOG] 3 ML PEN SC ×7 (08:00→20:53)
[2019-02-14] MEDS: DOCUSATE SODIUM 100 MG CAP PO ×2 (08:12→20:52)
[2019-02-14] MEDS: CYCLOBENZAPRINE 10 MG TAB PO ×3 (08:12→20:52)
[2019-02-14] MEDS: VANCOMYCIN HCL 1.75 GM in SOD CHLORIDE 0.9% 500 ML IVPB ×2 (08:13→20:51)
[2019-02-14] MEDS: DIPHENHYDRAMINE 50 MG INJ IV ×2 (08:19→20:48)
[2019-02-14] MEDS: INSULIN GLARGINE [LANTus] (100 UNITS/ML) SYG SC (08:19)
[2019-02-14] MEDS: SODIUM HYPOCHLORITE (1/40) 1 LITER BTL IRR (08:33)
[2019-02-15] MEDS: ACCU-CHEK XX (02:00)
[2019-02-15] MEDS: LEVOFLOXACIN 750 MG TABLET PO (05:43)
[2019-02-15] MEDS: HEPARIN 5,000 UNIT/1 ML VIAL SC ×3 (05:47→21:27)
[2019-02-15] MEDS: DOCUSATE SODIUM 100 MG CAP PO ×2 (08:30→20:07)
[2019-02-15] MEDS: DIPHENHYDRAMINE 50 MG INJ IV ×2 (08:30→20:32)
[2019-02-15] MEDS: INSULIN ASPART [NOVOLOG] 3 ML PEN SC ×7 (08:30→20:08)
[2019-02-15] MEDS: CYCLOBENZAPRINE 10 MG TAB PO ×3 (08:30→20:07)
[2019-02-15] MEDS: VANCOMYCIN HCL 1.75 GM in SOD CHLORIDE 0.9% 500 ML IVPB ×2 (08:30→20:33)
[2019-02-15] MEDS: INSULIN GLARGINE [LANTus] (100 UNITS/ML) SYG SC (08:30)
[2019-02-15] MEDS: SODIUM HYPOCHLORITE (1/40) 1 LITER BTL IRR (08:34)
[2019-02-15] MEDS: HYDROmorphONE 0.5 MG/0.5 ML SYG IV ×3 (08:52→20:05)
[2019-02-15 11:59] LABS: BLOOD UREA NITROGEN 24 mg/dl (7-20)
[2019-02-15 11:59] LABS: CREATININE 0.89 mg/dl (0.61-1.24)
[2019-02-15] MEDS: HYDROCODONE/APAP (10/325) TAB PO (13:30)
[2019-02-16] MEDS: ACCU-CHEK XX (02:00)
[2019-02-16] MEDS: HYDROmorphONE 0.5 MG/0.5 ML SYG IV ×4 (03:21→20:21)
[2019-02-16 06:12] LABS: ADD MAN DIFF? NO
[2019-02-16] MEDS: HEPARIN 5,000 UNIT/1 ML VIAL SC ×3 (06:14→21:21)
[2019-02-16] MEDS: LEVOFLOXACIN 750 MG TABLET PO (06:15)
[2019-02-16 06:20] LABS: BASOPHIL # 0.1 10^3/ul (0.0-0.1); BASOPHILS % 1.5 % (0.0-2.0); EOSINOPHILS # 0.4 10^3/ul (0.0-0.5); EOSINOPHILS % 7.3 % (0.0-7.0); HEMATOCRIT 36.8 % (42.0-52.0); HEMOGLOBIN 11.7 g/dl (14.0-18.0); LYMPHOCYTES # 1.6 10^3/ul (0.8-2.9); LYMPHOCYTES % 29.9 % (15.0-51.0); MEAN CORPUSCULAR HEMOGLOBIN 26.8 pg (29.0-33.0); MEAN CORPUSCULAR HGB CONC 31.8 g/dl (32.0-37.0); MEAN CORPUSCULAR VOLUME 84.4 fl (82.0-101.0); MEAN PLATELET VOLUME 9.9 fl (7.4-10.4); MONOCYTE # 0.3 10^3/ul (0.3-0.9); NEUTROPHILS % 54.9 % (39.0-77.0); PLATELET COUNT 371 10^3/UL (140-415); RED BLOOD COUNT 4.36 10^6/ul (4.70-6.10); RED CELL DISTRIBUTION WIDTH 13.4 % (11.5-14.5)
[2019-02-16 06:20] LABS: WHITE BLOOD COUNT 5.5 10^3/ul (4.8-10.8)
[2019-02-16 06:59] LABS: ANION GAP 10 (5-13); BLOOD UREA NITROGEN 21 mg/dl (7-20); CALCIUM 9.2 mg/dl (8.4-10.2); CARBON DIOXIDE 25 mmol/L (21-31); CHLORIDE 101 mmol/L (97-110); CREATININE 0.93 mg/dl (0.61-1.24); Estimated GFR > 60 mL/min (>60); GLUCOSE 197 mg/dl (70-220); MAGNESIUM 1.8 mg/dl (1.7-2.5); PHOSPHORUS 4.6 mg/dl (2.5-4.9); POTASSIUM 4.5 mmol/L (3.5-5.1); SODIUM 136 mmol/L (135-144)
[2019-02-16] MEDS: INSULIN ASPART [NOVOLOG] 3 ML PEN SC ×7 (08:22→21:20)
[2019-02-16] MEDS: INSULIN GLARGINE [LANTus] (100 UNITS/ML) SYG SC (08:22)
[2019-02-16] MEDS: CYCLOBENZAPRINE 10 MG TAB PO ×3 (08:24→20:21)
[2019-02-16] MEDS: SODIUM HYPOCHLORITE (1/40) 1 LITER BTL IRR (08:24)
[2019-02-16] MEDS: DOCUSATE SODIUM 100 MG CAP PO ×2 (08:24→20:21)
[2019-02-16] MEDS: VANCOMYCIN HCL 1.75 GM in SOD CHLORIDE 0.9% 500 ML IVPB ×2 (08:33→21:36)
[2019-02-16] MEDS: DIPHENHYDRAMINE 50 MG INJ IV ×2 (08:39→21:15)
[2019-02-16] MEDS: HYDROCODONE/APAP (10/325) TAB PO ×2 (08:39→13:56)
[2019-02-16] MEDS: morphine 2 MG INJ IV (23:50)
[2019-02-17] MEDS: ACCU-CHEK XX (02:00)
[2019-02-17] MEDS: HYDROmorphONE 0.5 MG/0.5 ML SYG IV ×2 (04:43→09:09)
[2019-02-17] MEDS: LEVOFLOXACIN 750 MG TABLET PO (06:16)
[2019-02-17] MEDS: HEPARIN 5,000 UNIT/1 ML VIAL SC ×3 (06:18→22:17)
[2019-02-17] MEDS: INSULIN ASPART [NOVOLOG] 3 ML PEN SC ×7 (08:05→20:22)
[2019-02-17] MEDS: SODIUM HYPOCHLORITE (1/40) 1 LITER BTL IRR (09:00)
[2019-02-17] MEDS: DOCUSATE SODIUM 100 MG CAP PO ×2 (09:40→20:13)
[2019-02-17] MEDS: CYCLOBENZAPRINE 10 MG TAB PO ×3 (09:40→20:13)
[2019-02-17 09:43] LABS: VANCOMYCIN,TROUGH 14.1 ug/ml (10.0-20.0)
[2019-02-17] MEDS: INSULIN GLARGINE [LANTus] (100 UNITS/ML) SYG SC (09:44)
[2019-02-17] MEDS: VANCOMYCIN HCL 1.75 GM in SOD CHLORIDE 0.9% 500 ML IVPB ×2 (10:10→20:55)
[2019-02-17] MEDS: DIPHENHYDRAMINE 50 MG INJ IV ×2 (10:10→20:13)
[2019-02-17] MEDS: HYDROCODONE/APAP (10/325) TAB PO ×2 (12:55→19:26)
[2019-02-18] MEDS: HYDROCODONE/APAP (10/325) TAB PO ×2 (01:08→15:32)
[2019-02-18] MEDS: ACCU-CHEK XX (02:00)
[2019-02-18] MEDS: morphine 2 MG INJ IV ×4 (05:56→22:33)
[2019-02-18] MEDS: LEVOFLOXACIN 750 MG TABLET PO (05:57)
[2019-02-18] MEDS: HEPARIN 5,000 UNIT/1 ML VIAL SC ×3 (06:00→22:00)
[2019-02-18] MEDS: SODIUM HYPOCHLORITE (1/40) 1 LITER BTL IRR (08:35)
[2019-02-18] MEDS: CYCLOBENZAPRINE 10 MG TAB PO ×3 (08:36→20:19)
[2019-02-18] MEDS: DOCUSATE SODIUM 100 MG CAP PO ×2 (08:36→20:19)
[2019-02-18] MEDS: DIPHENHYDRAMINE 50 MG INJ IV ×2 (08:37→20:27)
[2019-02-18] MEDS: INSULIN ASPART [NOVOLOG] 3 ML PEN SC ×7 (08:47→20:27)
[2019-02-18] MEDS: INSULIN GLARGINE [LANTus] (100 UNITS/ML) SYG SC ×2 (08:49→20:26)
[2019-02-18] MEDS: VANCOMYCIN HCL 1.75 GM in SOD CHLORIDE 0.9% 500 ML IVPB ×2 (08:49→20:19)
[2019-02-19] MEDS: ACCU-CHEK XX (01:20)
[2019-02-19] MEDS: LEVOFLOXACIN 750 MG TABLET PO (05:29)
[2019-02-19] MEDS: morphine 2 MG INJ IV ×3 (05:29→23:27)
[2019-02-19] MEDS: HEPARIN 5,000 UNIT/1 ML VIAL SC ×3 (05:38→21:09)
[2019-02-19 05:54] LABS: ADD MAN DIFF? NO
[2019-02-19 06:02] LABS: WHITE BLOOD COUNT 5.5 10^3/ul (4.8-10.8)
[2019-02-19 06:02] LABS: BASOPHIL # 0.1 10^3/ul (0.0-0.1); BASOPHILS % 1.3 % (0.0-2.0); EOSINOPHILS # 0.4 10^3/ul (0.0-0.5); EOSINOPHILS % 6.9 % (0.0-7.0); HEMATOCRIT 39.1 % (42.0-52.0); HEMOGLOBIN 12.7 g/dl (14.0-18.0); LYMPHOCYTES # 1.9 10^3/ul (0.8-2.9); LYMPHOCYTES % 35.1 % (15.0-51.0); MEAN CORPUSCULAR HEMOGLOBIN 27.3 pg (29.0-33.0); MEAN CORPUSCULAR HGB CONC 32.5 g/dl (32.0-37.0); MEAN CORPUSCULAR VOLUME 83.9 fl (82.0-101.0); MEAN PLATELET VOLUME 9.4 fl (7.4-10.4); MONOCYTE # 0.4 10^3/ul (0.3-0.9); MONOCYTES % 7.3 % (0.0-11.0); NEUTROPHIL # 2.7 10^3/ul (1.6-7.5); PLATELET COUNT 344 10^3/UL (140-415); RED BLOOD COUNT 4.66 10^6/ul (4.70-6.10); RED CELL DISTRIBUTION WIDTH 13.6 % (11.5-14.5)
[2019-02-19 06:35] LABS: ANION GAP 11 (5-13); BLOOD UREA NITROGEN 20 mg/dl (7-20); CALCIUM 9.4 mg/dl (8.4-10.2); CARBON DIOXIDE 26 mmol/L (21-31); CHLORIDE 102 mmol/L (97-110); CREATININE 0.89 mg/dl (0.61-1.24); Estimated GFR > 60 mL/min (>60); GLUCOSE 119 mg/dl (70-220); MAGNESIUM 1.7 mg/dl (1.7-2.5); PHOSPHORUS 4.8 mg/dl (2.5-4.9); POTASSIUM 3.8 mmol/L (3.5-5.1); SODIUM 139 mmol/L (135-144)
[2019-02-19] MEDS: INSULIN ASPART [NOVOLOG] 3 ML PEN SC ×7 (08:00→20:49)
[2019-02-19] MEDS: SODIUM HYPOCHLORITE (1/40) 1 LITER BTL IRR (08:35)
[2019-02-19] MEDS: DOCUSATE SODIUM 100 MG CAP PO ×2 (08:39→20:47)
[2019-02-19] MEDS: CYCLOBENZAPRINE 10 MG TAB PO ×3 (08:39→20:47)
[2019-02-19] MEDS: VANCOMYCIN HCL 1.75 GM in SOD CHLORIDE 0.9% 500 ML IVPB ×2 (08:40→20:54)
[2019-02-19] MEDS: INSULIN GLARGINE [LANTus] (100 UNITS/ML) SYG SC ×2 (08:41→20:50)
[2019-02-19] MEDS: DIPHENHYDRAMINE 50 MG INJ IV ×2 (08:43→21:00)
[2019-02-19] MEDS: HYDROCODONE/APAP (10/325) TAB PO ×3 (08:52→21:08)
[2019-02-20] MEDS: ACCU-CHEK XX ×2 (02:12→21:11)
[2019-02-20] MEDS: HYDROCODONE/APAP (10/325) TAB PO ×4 (03:53→21:01)
[2019-02-20 05:52] LABS: ADD MAN DIFF? NO
[2019-02-20 05:55] LABS: BASOPHILS % 0.4 % (0.0-2.0); EOSINOPHILS # 0.1 10^3/ul (0.0-0.5); EOSINOPHILS % 1.9 % (0.0-7.0); HEMATOCRIT 38.3 % (42.0-52.0); HEMOGLOBIN 12.4 g/dl (14.0-18.0); LYMPHOCYTES # 1.9 10^3/ul (0.8-2.9); LYMPHOCYTES % 25.6 % (15.0-51.0); MEAN CORPUSCULAR HEMOGLOBIN 27.4 pg (29.0-33.0); MEAN CORPUSCULAR HGB CONC 32.4 g/dl (32.0-37.0); MEAN CORPUSCULAR VOLUME 84.7 fl (82.0-101.0); MEAN PLATELET VOLUME 9.6 fl (7.4-10.4); MONOCYTE # 0.6 10^3/ul (0.3-0.9); MONOCYTES % 7.7 % (0.0-11.0); NEUTROPHIL # 4.6 10^3/ul (1.6-7.5); NEUTROPHILS % 64.1 % (39.0-77.0); PLATELET COUNT 358 10^3/UL (140-415); RED BLOOD COUNT 4.52 10^6/ul (4.70-6.10); RED CELL DISTRIBUTION WIDTH 13.4 % (11.5-14.5)
[2019-02-20 05:55] LABS: WHITE BLOOD COUNT 7.2 10^3/ul (4.8-10.8)
[2019-02-20] MEDS: LEVOFLOXACIN 750 MG TABLET PO (06:10)
[2019-02-20] MEDS: HEPARIN 5,000 UNIT/1 ML VIAL SC ×3 (06:12→21:04)
[2019-02-20] MEDS: morphine 2 MG INJ IV ×3 (06:22→19:12)
[2019-02-20 06:45] LABS: ANION GAP 10 (5-13); BLOOD UREA NITROGEN 21 mg/dl (7-20); CALCIUM 9.7 mg/dl (8.4-10.2); CARBON DIOXIDE 29 mmol/L (21-31); CHLORIDE 103 mmol/L (97-110); CREATININE 0.98 mg/dl (0.61-1.24); Estimated GFR > 60 mL/min (>60); GLUCOSE 156 mg/dl (70-220); MAGNESIUM 1.8 mg/dl (1.7-2.5); POTASSIUM 3.9 mmol/L (3.5-5.1); SODIUM 142 mmol/L (135-144)
[2019-02-20] MEDS: INSULIN ASPART [NOVOLOG] 3 ML PEN SC ×7 (08:51→21:00)
[2019-02-20] MEDS: SODIUM HYPOCHLORITE (1/40) 1 LITER BTL IRR (08:52)
[2019-02-20] MEDS: VANCOMYCIN HCL 1.75 GM in SOD CHLORIDE 0.9% 500 ML IVPB ×2 (09:29→21:00)
[2019-02-20] MEDS: DOCUSATE SODIUM 100 MG CAP PO ×2 (09:30→21:01)
[2019-02-20] MEDS: CYCLOBENZAPRINE 10 MG TAB PO ×3 (09:30→21:00)
[2019-02-20] MEDS: DIPHENHYDRAMINE 50 MG INJ IV ×2 (09:36→21:01)
[2019-02-20] MEDS: INSULIN GLARGINE [LANTus] (100 UNITS/ML) SYG SC ×2 (09:45→21:05)
[2019-02-21] MEDS: morphine 2 MG INJ IV ×3 (01:14→14:06)
[2019-02-21] MEDS: LEVOFLOXACIN 750 MG TABLET PO (05:31)
[2019-02-21] MEDS: HEPARIN 5,000 UNIT/1 ML VIAL SC ×3 (05:42→20:28)
[2019-02-21] MEDS: INSULIN ASPART [NOVOLOG] 3 ML PEN SC ×7 (08:00→20:24)
[2019-02-21] MEDS: CYCLOBENZAPRINE 10 MG TAB PO ×3 (08:14→20:24)
[2019-02-21] MEDS: DOCUSATE SODIUM 100 MG CAP PO ×2 (08:14→20:24)
[2019-02-21] MEDS: GLUCOSE GEL 15 GRAM TUBE PO (08:14)
[2019-02-21] MEDS: DIPHENHYDRAMINE 50 MG INJ IV ×2 (08:14→20:29)
[2019-02-21] MEDS: VANCOMYCIN HCL 1.75 GM in SOD CHLORIDE 0.9% 500 ML IVPB ×2 (08:18→20:23)
[2019-02-21] MEDS: SODIUM HYPOCHLORITE (1/40) 1 LITER BTL IRR (08:19)
[2019-02-21] MEDS: INSULIN GLARGINE [LANTus] (100 UNITS/ML) SYG SC ×2 (09:05→20:29)
[2019-02-21] MEDS: HYDROCODONE/APAP (10/325) TAB PO ×2 (09:42→20:24)
[2019-02-22] MEDS: HYDROmorphONE 0.5 MG/0.5 ML SYG IV ×5 (00:45→21:15)
[2019-02-22] MEDS: ACCU-CHEK XX (02:00)
[2019-02-22] MEDS: HYDROCODONE/APAP (10/325) TAB PO ×3 (03:51→20:00)
[2019-02-22] MEDS: LEVOFLOXACIN 750 MG TABLET PO (05:06)
[2019-02-22] MEDS: HEPARIN 5,000 UNIT/1 ML VIAL SC ×3 (05:18→20:48)
[2019-02-22] MEDS: INSULIN ASPART [NOVOLOG] 3 ML PEN SC ×7 (08:00→20:48)
[2019-02-22] MEDS: DOCUSATE SODIUM 100 MG CAP PO ×2 (08:41→20:46)
[2019-02-22] MEDS: CYCLOBENZAPRINE 10 MG TAB PO ×3 (08:41→20:46)
[2019-02-22] MEDS: DEXTROSE 50% 50 ML SYRINGE IV (08:47)
[2019-02-22] MEDS: SODIUM HYPOCHLORITE (1/40) 1 LITER BTL IRR (09:00)
[2019-02-22] MEDS: INSULIN GLARGINE [LANTus] (100 UNITS/ML) SYG SC ×2 (09:20→20:47)
[2019-02-22 09:24] LABS: VANCOMYCIN,TROUGH 15.3 ug/ml (10.0-20.0)
[2019-02-22] MEDS: DIPHENHYDRAMINE 50 MG INJ IV ×2 (09:44→21:15)
[2019-02-22] MEDS: VANCOMYCIN HCL 1.75 GM in SOD CHLORIDE 0.9% 500 ML IVPB ×2 (09:44→21:15)
[2019-02-22 10:44] LABS: GLUCOSE 37 mg/dl (70-220)
[2019-02-23] MEDS: HYDROmorphONE 0.5 MG/0.5 ML SYG IV ×4 (01:29→20:29)
[2019-02-23] MEDS: ACCU-CHEK XX (01:38)
[2019-02-23] MEDS: LEVOFLOXACIN 750 MG TABLET PO (06:15)
[2019-02-23] MEDS: HEPARIN 5,000 UNIT/1 ML VIAL SC ×3 (06:16→22:08)
[2019-02-23 06:52] LABS: BLOOD UREA NITROGEN 18 mg/dl (7-20)
[2019-02-23 06:52] LABS: CREATININE 0.95 mg/dl (0.61-1.24)
[2019-02-23] MEDS: CYCLOBENZAPRINE 10 MG TAB PO ×3 (08:19→20:25)
[2019-02-23] MEDS: DOCUSATE SODIUM 100 MG CAP PO ×2 (08:19→20:25)
[2019-02-23] MEDS: INSULIN ASPART [NOVOLOG] 3 ML PEN SC ×7 (08:20→20:36)
[2019-02-23] MEDS: INSULIN GLARGINE [LANTus] (100 UNITS/ML) SYG SC ×2 (08:21→20:36)
[2019-02-23] MEDS: SODIUM HYPOCHLORITE (1/40) 1 LITER BTL IRR (08:23)
[2019-02-23] MEDS: DIPHENHYDRAMINE 50 MG INJ IV ×2 (08:52→20:29)
[2019-02-23] MEDS: VANCOMYCIN HCL 1.75 GM in SOD CHLORIDE 0.9% 500 ML IVPB ×2 (08:55→20:25)
[2019-02-23] MEDS: HYDROCODONE/APAP (10/325) TAB PO ×2 (13:25→19:02)
[2019-02-24] MEDS: ACCU-CHEK XX (02:00)
[2019-02-24] MEDS: HYDROmorphONE 0.5 MG/0.5 ML SYG IV ×5 (04:30→22:34)
[2019-02-24] MEDS: LEVOFLOXACIN 750 MG TABLET PO (06:03)
[2019-02-24] MEDS: HYDROCODONE/APAP (10/325) TAB PO ×3 (06:04→21:18)
[2019-02-24] MEDS: HEPARIN 5,000 UNIT/1 ML VIAL SC ×3 (06:07→21:12)
[2019-02-24] MEDS: CYCLOBENZAPRINE 10 MG TAB PO ×3 (08:20→21:08)
[2019-02-24] MEDS: VANCOMYCIN HCL 1.75 GM in SOD CHLORIDE 0.9% 500 ML IVPB ×2 (08:20→21:06)
[2019-02-24] MEDS: DOCUSATE SODIUM 100 MG CAP PO ×2 (08:20→21:08)
[2019-02-24] MEDS: SODIUM HYPOCHLORITE (1/40) 1 LITER BTL IRR (08:21)
[2019-02-24] MEDS: INSULIN ASPART [NOVOLOG] 3 ML PEN SC ×7 (08:24→21:11)
[2019-02-24] MEDS: INSULIN GLARGINE [LANTus] (100 UNITS/ML) SYG SC ×2 (08:25→21:10)
[2019-02-24] MEDS: DIPHENHYDRAMINE 50 MG INJ IV ×2 (08:30→21:18)
[2019-02-24] MEDS ORDERED: INSULIN GLARGINE [LANTus] (100 UNITS/ML) SYG SC (09:00)
[2019-02-25] MEDS: ACCU-CHEK XX (02:00)
[2019-02-25] MEDS: HYDROmorphONE 0.5 MG/0.5 ML SYG IV ×4 (03:38→23:41)
[2019-02-25] MEDS: HYDROCODONE/APAP (10/325) TAB PO ×3 (06:11→18:14)
[2019-02-25] MEDS: LEVOFLOXACIN 750 MG TABLET PO (06:11)
[2019-02-25] MEDS: HEPARIN 5,000 UNIT/1 ML VIAL SC ×3 (06:15→21:44)
[2019-02-25 07:19] LABS: CREATININE 0.85 mg/dl (0.61-1.24)
[2019-02-25 07:19] LABS: BLOOD UREA NITROGEN 18 mg/dl (7-20)
[2019-02-25] MEDS: DOCUSATE SODIUM 100 MG CAP PO ×2 (08:38→20:41)
[2019-02-25] MEDS: CYCLOBENZAPRINE 10 MG TAB PO ×3 (08:38→20:41)
[2019-02-25] MEDS: VANCOMYCIN HCL 1.75 GM in SOD CHLORIDE 0.9% 500 ML IVPB ×2 (08:40→20:40)
[2019-02-25] MEDS: DIPHENHYDRAMINE 50 MG INJ IV ×2 (08:40→20:37)
[2019-02-25] MEDS: INSULIN ASPART [NOVOLOG] 3 ML PEN SC ×7 (08:43→20:46)
[2019-02-25] MEDS: INSULIN GLARGINE [LANTus] (100 UNITS/ML) SYG SC ×2 (08:44→20:45)
[2019-02-25] MEDS: SODIUM HYPOCHLORITE (1/40) 1 LITER BTL IRR (08:45)
[2019-02-26] MEDS: HYDROCODONE/APAP (10/325) TAB PO ×5 (01:47→20:09)
[2019-02-26] MEDS: ACCU-CHEK XX (02:00)
[2019-02-26] MEDS: HYDROmorphONE 0.5 MG/0.5 ML SYG IV ×5 (04:08→22:50)
[2019-02-26 05:19] LABS: ADD MAN DIFF? NO
[2019-02-26 05:20] LABS: BASOPHILS % 0.6 % (0.0-2.0); EOSINOPHILS # 0.2 10^3/ul (0.0-0.5); EOSINOPHILS % 2.4 % (0.0-7.0); HEMATOCRIT 38.4 % (42.0-52.0); HEMOGLOBIN 12.5 g/dl (14.0-18.0); LYMPHOCYTES % 29.3 % (15.0-51.0); MEAN CORPUSCULAR HEMOGLOBIN 26.8 pg (29.0-33.0); MEAN CORPUSCULAR HGB CONC 32.6 g/dl (32.0-37.0); MEAN CORPUSCULAR VOLUME 82.2 fl (82.0-101.0); MEAN PLATELET VOLUME 9.7 fl (7.4-10.4); MONOCYTE # 0.5 10^3/ul (0.3-0.9); MONOCYTES % 7.9 % (0.0-11.0); NEUTROPHILS % 59.5 % (39.0-77.0); PLATELET COUNT 297 10^3/UL (140-415); RED BLOOD COUNT 4.67 10^6/ul (4.70-6.10); RED CELL DISTRIBUTION WIDTH 13.3 % (11.5-14.5)
[2019-02-26 05:20] LABS: WHITE BLOOD COUNT 6.7 10^3/ul (4.8-10.8)
[2019-02-26 05:48] LABS: ANION GAP 11 (5-13); BLOOD UREA NITROGEN 18 mg/dl (7-20); CALCIUM 9.3 mg/dl (8.4-10.2); CARBON DIOXIDE 26 mmol/L (21-31); CHLORIDE 101 mmol/L (97-110); CREATININE 0.88 mg/dl (0.61-1.24); GLUCOSE 200 mg/dl (70-220); MAGNESIUM 1.8 mg/dl (1.7-2.5); PHOSPHORUS 3.8 mg/dl (2.5-4.9); SODIUM 138 mmol/L (135-144)
[2019-02-26] MEDS: LEVOFLOXACIN 750 MG TABLET PO (06:06)
[2019-02-26] MEDS: HEPARIN 5,000 UNIT/1 ML VIAL SC ×3 (06:07→22:52)
[2019-02-26] MEDS: INSULIN ASPART [NOVOLOG] 3 ML PEN SC ×7 (08:00→20:22)
[2019-02-26] MEDS: SODIUM HYPOCHLORITE (1/40) 1 LITER BTL IRR (08:04)
[2019-02-26] MEDS: CYCLOBENZAPRINE 10 MG TAB PO ×3 (08:14→20:09)
[2019-02-26] MEDS: DOCUSATE SODIUM 100 MG CAP PO ×2 (08:14→20:08)
[2019-02-26] MEDS: DIPHENHYDRAMINE 50 MG INJ IV ×3 (08:15→21:44)
[2019-02-26] MEDS: VANCOMYCIN HCL 1.75 GM in SOD CHLORIDE 0.9% 500 ML IVPB ×2 (09:10→21:44)
[2019-02-26] MEDS: INSULIN GLARGINE [LANTus] (100 UNITS/ML) SYG SC ×2 (09:11→20:15)
[2019-02-27] MEDS: HYDROCODONE/APAP (10/325) TAB PO ×3 (01:53→21:38)
[2019-02-27] MEDS: ACCU-CHEK XX (02:00)
[2019-02-27] MEDS: HYDROmorphONE 0.5 MG/0.5 ML SYG IV ×4 (03:33→19:48)
[2019-02-27] MEDS: LEVOFLOXACIN 750 MG TABLET PO (06:29)
[2019-02-27] MEDS: HEPARIN 5,000 UNIT/1 ML VIAL SC ×3 (06:31→21:41)
[2019-02-27] MEDS: SODIUM HYPOCHLORITE (1/40) 1 LITER BTL IRR (07:59)
[2019-02-27] MEDS: INSULIN ASPART [NOVOLOG] 3 ML PEN SC ×7 (08:00→21:00)
[2019-02-27 08:29] LABS: ADD MAN DIFF? NO
[2019-02-27 08:44] LABS: WHITE BLOOD COUNT 6.7 10^3/ul (4.8-10.8)
[2019-02-27 08:44] LABS: BASOPHIL # 0.1 10^3/ul (0.0-0.1); BASOPHILS % 0.9 % (0.0-2.0); EOSINOPHILS # 0.4 10^3/ul (0.0-0.5); EOSINOPHILS % 5.6 % (0.0-7.0); HEMOGLOBIN 12.3 g/dl (14.0-18.0); LYMPHOCYTES # 1.9 10^3/ul (0.8-2.9); LYMPHOCYTES % 27.8 % (15.0-51.0); MEAN CORPUSCULAR HEMOGLOBIN 27.2 pg (29.0-33.0); MEAN CORPUSCULAR HGB CONC 32.4 g/dl (32.0-37.0); MEAN CORPUSCULAR VOLUME 83.9 fl (82.0-101.0); MEAN PLATELET VOLUME 9.6 fl (7.4-10.4); MONOCYTE # 0.5 10^3/ul (0.3-0.9); MONOCYTES % 7.7 % (0.0-11.0); NEUTROPHIL # 3.8 10^3/ul (1.6-7.5); NEUTROPHILS % 57.5 % (39.0-77.0); PLATELET COUNT 282 10^3/UL (140-415); RED BLOOD COUNT 4.53 10^6/ul (4.70-6.10); RED CELL DISTRIBUTION WIDTH 13.3 % (11.5-14.5)
[2019-02-27 09:01] LABS: ANION GAP 9 (5-13); BLOOD UREA NITROGEN 19 mg/dl (7-20); CALCIUM 9.5 mg/dl (8.4-10.2); CARBON DIOXIDE 24 mmol/L (21-31); CHLORIDE 107 mmol/L (97-110); Estimated GFR > 60 mL/min (>60); GLUCOSE 69 mg/dl (70-220); PHOSPHORUS 5.7 mg/dl (2.5-4.9); POTASSIUM 3.5 mmol/L (3.5-5.1); SODIUM 140 mmol/L (135-144)
[2019-02-27] MEDS: DIPHENHYDRAMINE 50 MG INJ IV ×2 (09:01→21:00)
[2019-02-27] MEDS: DOCUSATE SODIUM 100 MG CAP PO ×2 (09:01→21:00)
[2019-02-27] MEDS: VANCOMYCIN HCL 1.75 GM in SOD CHLORIDE 0.9% 500 ML IVPB ×2 (09:01→21:00)
[2019-02-27] MEDS: CYCLOBENZAPRINE 10 MG TAB PO ×3 (09:01→21:00)
[2019-02-27] MEDS: INSULIN GLARGINE [LANTus] (100 UNITS/ML) SYG SC ×2 (09:10→21:12)
[2019-02-27 20:36] LABS: VANCOMYCIN,TROUGH 16.4 ug/ml (10.0-20.0)
[2019-02-28] MEDS: HYDROmorphONE 0.5 MG/0.5 ML SYG IV ×5 (00:02→19:55)
[2019-02-28] MEDS: INSULIN GLARGINE [LANTus] (100 UNITS/ML) SYG SC ×3 (01:18→21:21)
[2019-02-28] MEDS: HYDROCODONE/APAP (10/325) TAB PO ×4 (01:47→22:04)
[2019-02-28] MEDS: ACCU-CHEK XX ×2 (02:39→03:35)
[2019-02-28 03:26] LABS: GLUCOSE 435 mg/dl (70-220)
[2019-02-28] MEDS: INSULIN ASPART [NOVOLOG] 3 ML PEN SC ×8 (03:35→21:27)
[2019-02-28] MEDS: LEVOFLOXACIN 750 MG TABLET PO (05:47)
[2019-02-28] MEDS: HEPARIN 5,000 UNIT/1 ML VIAL SC ×3 (05:56→21:28)
[2019-02-28] MEDS: CYCLOBENZAPRINE 10 MG TAB PO ×3 (08:18→21:10)
[2019-02-28] MEDS: DOCUSATE SODIUM 100 MG CAP PO ×2 (08:18→21:10)
[2019-02-28] MEDS: VANCOMYCIN HCL 1.75 GM in SOD CHLORIDE 0.9% 500 ML IVPB ×2 (08:19→21:09)
[2019-02-28] MEDS: DIPHENHYDRAMINE 50 MG INJ IV ×2 (08:19→21:10)
[2019-02-28] MEDS: SODIUM HYPOCHLORITE (1/40) 1 LITER BTL IRR (08:20)
[2019-02-28 08:34] LABS: ADD MAN DIFF? NO
[2019-02-28 08:40] LABS: WHITE BLOOD COUNT 6.3 10^3/ul (4.8-10.8)
[2019-02-28 08:40] LABS: BASOPHIL # 0.1 10^3/ul (0.0-0.1); BASOPHILS % 1.3 % (0.0-2.0); EOSINOPHILS # 0.4 10^3/ul (0.0-0.5); EOSINOPHILS % 6.2 % (0.0-7.0); HEMATOCRIT 38.6 % (42.0-52.0); HEMOGLOBIN 12.6 g/dl (14.0-18.0); LYMPHOCYTES # 2.7 10^3/ul (0.8-2.9); LYMPHOCYTES % 42.6 % (15.0-51.0); MEAN CORPUSCULAR HGB CONC 32.6 g/dl (32.0-37.0); MEAN CORPUSCULAR VOLUME 82.7 fl (82.0-101.0); MEAN PLATELET VOLUME 9.4 fl (7.4-10.4); MONOCYTE # 0.6 10^3/ul (0.3-0.9); MONOCYTES % 8.9 % (0.0-11.0); NEUTROPHIL # 2.6 10^3/ul (1.6-7.5); NEUTROPHILS % 40.7 % (39.0-77.0); PLATELET COUNT 289 10^3/UL (140-415); RED BLOOD COUNT 4.67 10^6/ul (4.70-6.10); RED CELL DISTRIBUTION WIDTH 13.2 % (11.5-14.5)
[2019-02-28 08:55] LABS: ANION GAP 10 (5-13); BLOOD UREA NITROGEN 21 mg/dl (7-20); CALCIUM 9.6 mg/dl (8.4-10.2); CARBON DIOXIDE 25 mmol/L (21-31); CHLORIDE 105 mmol/L (97-110); Estimated GFR > 60 mL/min (>60); GLUCOSE 106 mg/dl (70-220); MAGNESIUM 1.8 mg/dl (1.7-2.5); PHOSPHORUS 4.7 mg/dl (2.5-4.9); POTASSIUM 3.9 mmol/L (3.5-5.1); SODIUM 140 mmol/L (135-144)
[2019-02-28] MEDS: SOD CHLORIDE 0.45% 1,000 ML IV ×2 (11:00→21:00)
[2019-02-28] MEDS ORDERED: INSULIN GLARGINE [LANTus] (100 UNITS/ML) SYG SC (20:00)
[2019-03-01] MEDS: DEXTROSE 5%-0.45% NACL 500 ML IV (00:45)
[2019-03-01] MEDS: SOD CHLORIDE 0.45% 1,000 ML IV ×3 (00:45→13:18)
[2019-03-01] MEDS: HYDROmorphONE 0.5 MG/0.5 ML SYG IV ×5 (00:45→20:48)
[2019-03-01] MEDS: ACCU-CHEK XX ×7 (00:47→21:00)
[2019-03-01] MEDS: LEVOFLOXACIN 750 MG TABLET PO (05:10)
[2019-03-01] MEDS: HEPARIN 5,000 UNIT/1 ML VIAL SC ×3 (05:10→21:39)
[2019-03-01 05:39] LABS: ADD MAN DIFF? NO
[2019-03-01 05:50] LABS: BASOPHIL # 0.1 10^3/ul (0.0-0.1); BASOPHILS % 0.9 % (0.0-2.0); EOSINOPHILS # 0.4 10^3/ul (0.0-0.5); EOSINOPHILS % 7.3 % (0.0-7.0); HEMATOCRIT 37.1 % (42.0-52.0); LYMPHOCYTES # 1.8 10^3/ul (0.8-2.9); LYMPHOCYTES % 33.9 % (15.0-51.0); MEAN CORPUSCULAR HGB CONC 32.3 g/dl (32.0-37.0); MEAN CORPUSCULAR VOLUME 83.4 fl (82.0-101.0); MONOCYTE # 0.5 10^3/ul (0.3-0.9); MONOCYTES % 9.5 % (0.0-11.0); NEUTROPHIL # 2.6 10^3/ul (1.6-7.5); NEUTROPHILS % 47.8 % (39.0-77.0); PLATELET COUNT 286 10^3/UL (140-415); RED BLOOD COUNT 4.45 10^6/ul (4.70-6.10); RED CELL DISTRIBUTION WIDTH 13.2 % (11.5-14.5)
[2019-03-01 05:50] LABS: WHITE BLOOD COUNT 5.4 10^3/ul (4.8-10.8)
[2019-03-01 06:28] LABS: ANION GAP 8 (5-13); BLOOD UREA NITROGEN 19 mg/dl (7-20); CALCIUM 9.2 mg/dl (8.4-10.2); CARBON DIOXIDE 25 mmol/L (21-31); CHLORIDE 104 mmol/L (97-110); CREATININE 0.85 mg/dl (0.61-1.24); Estimated GFR > 60 mL/min (>60); GLUCOSE 287 mg/dl (70-220); MAGNESIUM 1.9 mg/dl (1.7-2.5); POTASSIUM 4.2 mmol/L (3.5-5.1); SODIUM 137 mmol/L (135-144)
[2019-03-01] MEDS: INSULIN ASPART [NOVOLOG] 3 ML PEN SC ×7 (08:00→21:48)
[2019-03-01] MEDS: SODIUM HYPOCHLORITE (1/40) 1 LITER BTL IRR (09:00)
[2019-03-01] MEDS: DOCUSATE SODIUM 100 MG CAP PO ×2 (09:00→20:43)
[2019-03-01] MEDS ORDERED: INSULIN GLARGINE [LANTus] (100 UNITS/ML) SYG SC (09:00)
[2019-03-01] MEDS: CYCLOBENZAPRINE 10 MG TAB PO ×3 (09:00→20:43)
[2019-03-01] MEDS: DIPHENHYDRAMINE 50 MG INJ IV (09:17)
[2019-03-01] MEDS: VANCOMYCIN HCL 1.75 GM in SOD CHLORIDE 0.9% 500 ML IVPB ×2 (09:17→20:47)
[2019-03-01] MEDS ORDERED: MIDAZOLAM 1 MG/ML 2 ML INJ (15:08)
[2019-03-01] MEDS ORDERED: MINERAL OIL LIGHT 10 ML VIAL (15:17)
[2019-03-01] MEDS ORDERED: LIDOCAINE 1%/EPI (1:100,000) (MDV) 20 ML (15:17)
[2019-03-01] MEDS ORDERED: ONDANSETRON 4 MG INJ (16:41)
[2019-03-01] MEDS ORDERED: METOCLOPRAMIDE 10 MG INJ (16:41)
[2019-03-01] MEDS ORDERED: DEXAMETHASONE 4 MG/ML 5 ML INJ (16:42)
[2019-03-01] MEDS ORDERED: PROPOFOL 60 ML (16:45)
[2019-03-01] MEDS ORDERED: CEFAZOLIN 1 GM INJ (16:45)
[2019-03-01] MEDS ORDERED: LIDOCAINE 2% (SDV) 5 ML INJ (16:45)
[2019-03-01] MEDS ORDERED: HYDROmorphONE 1 MG/5 ML IV SYRINGE IV ×2 (17:00)
[2019-03-01] MEDS ORDERED: MEPERIDINE 25 MG INJ IV (17:00)
[2019-03-01] MEDS ORDERED: ONDANSETRON 4 MG INJ IV (17:00)
[2019-03-01] MEDS ORDERED: DIPHENHYDRAMINE 50 MG INJ IV (17:00)
[2019-03-01] MEDS ORDERED: FENTAnyl 50 MCG/ML VIAL IV (17:00)
[2019-03-01] MEDS ORDERED: METOCLOPRAMIDE 10 MG INJ IV (17:00)
[2019-03-01] MEDS ORDERED: EPHEDrine SULFATE 50 MG/5 ML SYG IV (17:00)
[2019-03-01] MEDS: ALBUMIN HUMAN 5% 250 ML IV (17:26)
[2019-03-01] MEDS: INSULIN GLARGINE [LANTus] (100 UNITS/ML) SYG SC (20:41)
[2019-03-02] MEDS: HYDROmorphONE 0.5 MG/0.5 ML SYG IV ×5 (01:06→21:31)
[2019-03-02] MEDS: DIPHENHYDRAMINE 50 MG INJ IV ×3 (01:27→21:19)
[2019-03-02] MEDS: ACCU-CHEK XX (01:30)
[2019-03-02] MEDS: SOD CHLORIDE 0.45% 1,000 ML IV ×3 (03:00→23:00)
[2019-03-02] MEDS: LEVOFLOXACIN 750 MG TABLET PO (05:40)
[2019-03-02] MEDS: HEPARIN 5,000 UNIT/1 ML VIAL SC ×3 (05:50→21:14)
[2019-03-02 05:54] LABS: ADD MAN DIFF? NO
[2019-03-02 05:58] LABS: WHITE BLOOD COUNT 7.1 10^3/ul (4.8-10.8)
[2019-03-02 05:58] LABS: BASOPHILS % 0.1 % (0.0-2.0); HEMATOCRIT 37.5 % (42.0-52.0); LYMPHOCYTES # 0.7 10^3/ul (0.8-2.9); LYMPHOCYTES % 10.1 % (15.0-51.0); MEAN CORPUSCULAR HEMOGLOBIN 26.5 pg (29.0-33.0); MONOCYTE # 0.1 10^3/ul (0.3-0.9); NEUTROPHIL # 6.2 10^3/ul (1.6-7.5); NEUTROPHILS % 87.5 % (39.0-77.0); PLATELET COUNT 296 10^3/UL (140-415); RED BLOOD COUNT 4.52 10^6/ul (4.70-6.10); RED CELL DISTRIBUTION WIDTH 13.1 % (11.5-14.5)
[2019-03-02] MEDS: HYDROCODONE/APAP (10/325) TAB PO ×3 (06:53→19:53)
[2019-03-02 07:11] LABS: ANION GAP 10 (5-13); BLOOD UREA NITROGEN 20 mg/dl (7-20); CALCIUM 9.1 mg/dl (8.4-10.2); CARBON DIOXIDE 22 mmol/L (21-31); CHLORIDE 101 mmol/L (97-110); CREATININE 0.77 mg/dl (0.61-1.24); Estimated GFR > 60 mL/min (>60); GLUCOSE 351 mg/dl (70-220); MAGNESIUM 1.7 mg/dl (1.7-2.5); PHOSPHORUS 4.1 mg/dl (2.5-4.9); POTASSIUM 4.4 mmol/L (3.5-5.1); SODIUM 133 mmol/L (135-144)
[2019-03-02] MEDS: VANCOMYCIN HCL 1.75 GM in SOD CHLORIDE 0.9% 500 ML IVPB ×2 (08:06→21:20)
[2019-03-02] MEDS: DOCUSATE SODIUM 100 MG CAP PO ×2 (08:06→21:14)
[2019-03-02] MEDS: CYCLOBENZAPRINE 10 MG TAB PO ×3 (08:06→21:14)
[2019-03-02] MEDS: SODIUM HYPOCHLORITE (1/40) 1 LITER BTL IRR (08:07)
[2019-03-02] MEDS: INSULIN ASPART [NOVOLOG] 3 ML PEN SC ×7 (08:10→21:00)
[2019-03-02] MEDS: INSULIN GLARGINE [LANTus] (100 UNITS/ML) SYG SC ×2 (16:54→21:27)
[2019-03-03] MEDS: HYDROCODONE/APAP (10/325) TAB PO ×4 (00:12→21:35)
[2019-03-03] MEDS: ACCU-CHEK XX (01:25)
[2019-03-03] MEDS: HYDROmorphONE 0.5 MG/0.5 ML SYG IV ×4 (02:37→23:26)
[2019-03-03 06:23] LABS: ADD MAN DIFF? NO
[2019-03-03] MEDS: LEVOFLOXACIN 750 MG TABLET PO (06:27)
[2019-03-03] MEDS: HEPARIN 5,000 UNIT/1 ML VIAL SC ×3 (06:29→21:36)
[2019-03-03 06:36] LABS: BASOPHIL # 0.1 10^3/ul (0.0-0.1); BASOPHILS % 0.8 % (0.0-2.0); EOSINOPHILS # 0.1 10^3/ul (0.0-0.5); EOSINOPHILS % 1.9 % (0.0-7.0); HEMATOCRIT 35.7 % (42.0-52.0); HEMOGLOBIN 11.6 g/dl (14.0-18.0); LYMPHOCYTES # 2.8 10^3/ul (0.8-2.9); MEAN CORPUSCULAR HEMOGLOBIN 26.7 pg (29.0-33.0); MEAN CORPUSCULAR HGB CONC 32.5 g/dl (32.0-37.0); MEAN CORPUSCULAR VOLUME 82.3 fl (82.0-101.0); MEAN PLATELET VOLUME 10.3 fl (7.4-10.4); MONOCYTE # 0.4 10^3/ul (0.3-0.9); MONOCYTES % 6.5 % (0.0-11.0); NEUTROPHIL # 3.1 10^3/ul (1.6-7.5); NEUTROPHILS % 47.3 % (39.0-77.0); PLATELET COUNT 289 10^3/UL (140-415); RED BLOOD COUNT 4.34 10^6/ul (4.70-6.10)
[2019-03-03 06:36] LABS: WHITE BLOOD COUNT 6.5 10^3/ul (4.8-10.8)
[2019-03-03 06:54] LABS: ANION GAP 8 (5-13); BLOOD UREA NITROGEN 21 mg/dl (7-20); CALCIUM 9.3 mg/dl (8.4-10.2); CARBON DIOXIDE 27 mmol/L (21-31); CHLORIDE 101 mmol/L (97-110); CREATININE 1.06 mg/dl (0.61-1.24); Estimated GFR > 60 mL/min (>60); GLUCOSE 385 mg/dl (70-220); MAGNESIUM 1.8 mg/dl (1.7-2.5); PHOSPHORUS 3.5 mg/dl (2.5-4.9); POTASSIUM 4.1 mmol/L (3.5-5.1); SODIUM 136 mmol/L (135-144)
[2019-03-03] MEDS: INSULIN ASPART [NOVOLOG] 3 ML PEN SC ×7 (08:31→21:00)
[2019-03-03] MEDS: CYCLOBENZAPRINE 10 MG TAB PO ×3 (08:32→21:25)
[2019-03-03] MEDS: DOCUSATE SODIUM 100 MG CAP PO ×2 (08:32→20:33)
[2019-03-03] MEDS: SOD CHLORIDE 0.45% 1,000 ML IV (09:00)
[2019-03-03] MEDS: SODIUM HYPOCHLORITE (1/40) 1 LITER BTL IRR (09:00)
[2019-03-03] MEDS: DIPHENHYDRAMINE 50 MG INJ IV ×2 (09:50→21:29)
[2019-03-03] MEDS: VANCOMYCIN HCL 1.75 GM in SOD CHLORIDE 0.9% 500 ML IVPB ×2 (09:51→21:29)
[2019-03-03] MEDS: INSULIN GLARGINE [LANTus] (100 UNITS/ML) SYG SC ×2 (10:51→20:38)
[2019-03-03] MEDS: DAKINS 0.0125%(1/40) 473 ML SOLUTION TP (15:18)
[2019-03-03 20:51] LABS: VANCOMYCIN,TROUGH 15.7 ug/ml (10.0-20.0)
[2019-03-04] MEDS: HYDROCODONE/APAP (10/325) TAB PO ×5 (01:53→23:03)
[2019-03-04] MEDS: ACCU-CHEK XX (02:00)
[2019-03-04] MEDS: HYDROmorphONE 0.5 MG/0.5 ML SYG IV ×5 (03:39→20:38)
[2019-03-04 05:19] LABS: ADD MAN DIFF? NO
[2019-03-04 05:29] LABS: WHITE BLOOD COUNT 6.8 10^3/ul (4.8-10.8)
[2019-03-04 05:29] LABS: BASOPHIL # 0.1 10^3/ul (0.0-0.1); BASOPHILS % 0.9 % (0.0-2.0); EOSINOPHILS # 0.2 10^3/ul (0.0-0.5); EOSINOPHILS % 2.2 % (0.0-7.0); HEMATOCRIT 38.5 % (42.0-52.0); HEMOGLOBIN 12.6 g/dl (14.0-18.0); LYMPHOCYTES # 2.5 10^3/ul (0.8-2.9); MEAN CORPUSCULAR HEMOGLOBIN 27.2 pg (29.0-33.0); MEAN CORPUSCULAR HGB CONC 32.7 g/dl (32.0-37.0); MEAN PLATELET VOLUME 9.5 fl (7.4-10.4); MONOCYTE # 0.6 10^3/ul (0.3-0.9); MONOCYTES % 8.2 % (0.0-11.0); NEUTROPHIL # 3.5 10^3/ul (1.6-7.5); NEUTROPHILS % 51.4 % (39.0-77.0); PLATELET COUNT 341 10^3/UL (140-415); RED BLOOD COUNT 4.64 10^6/ul (4.70-6.10); RED CELL DISTRIBUTION WIDTH 13.1 % (11.5-14.5)
[2019-03-04 06:02] LABS: ANION GAP 9 (5-13); BLOOD UREA NITROGEN 17 mg/dl (7-20); CALCIUM 9.6 mg/dl (8.4-10.2); CARBON DIOXIDE 28 mmol/L (21-31); CHLORIDE 104 mmol/L (97-110); CREATININE 0.89 mg/dl (0.61-1.24); Estimated GFR > 60 mL/min (>60); GLUCOSE 212 mg/dl (70-220); MAGNESIUM 1.9 mg/dl (1.7-2.5); PHOSPHORUS 4.3 mg/dl (2.5-4.9); POTASSIUM 4.2 mmol/L (3.5-5.1); SODIUM 141 mmol/L (135-144)
[2019-03-04] MEDS: LEVOFLOXACIN 750 MG TABLET PO (06:11)
[2019-03-04] MEDS: HEPARIN 5,000 UNIT/1 ML VIAL SC ×3 (06:13→21:05)
[2019-03-04] MEDS: INSULIN GLARGINE [LANTus] (100 UNITS/ML) SYG SC ×2 (08:32→21:04)
[2019-03-04] MEDS: INSULIN ASPART [NOVOLOG] 3 ML PEN SC ×7 (08:33→20:41)
[2019-03-04] MEDS: DIPHENHYDRAMINE 50 MG INJ IV (08:34)
[2019-03-04] MEDS: VANCOMYCIN HCL 1.75 GM in SOD CHLORIDE 0.9% 500 ML IVPB (08:34)
[2019-03-04] MEDS: DOCUSATE SODIUM 100 MG CAP PO ×2 (08:34→21:10)
[2019-03-04] MEDS: CYCLOBENZAPRINE 10 MG TAB PO ×3 (08:34→20:37)
[2019-03-04] MEDS: SODIUM HYPOCHLORITE (1/40) 1 LITER BTL IRR (08:35)
[2019-03-04] MEDS ORDERED: LIDOCAINE 1% (MPF) 5 ML VIAL SC (09:30)
[2019-03-04] MEDS: DAPTOMYCIN 600 MG in SOD CHLORIDE 0.9% 100 ML IVPB (20:36)
[2019-03-05] MEDS: HYDROmorphONE 0.5 MG/0.5 ML SYG IV ×5 (00:28→22:59)
[2019-03-05] MEDS: DIPHENHYDRAMINE 50 MG INJ IV ×2 (00:28→21:53)
[2019-03-05] MEDS: ACCU-CHEK XX (02:00)
[2019-03-05] MEDS: LEVOFLOXACIN 750 MG TABLET PO (06:48)
[2019-03-05] MEDS: HEPARIN 5,000 UNIT/1 ML VIAL SC ×3 (06:49→21:48)
[2019-03-05] MEDS: CYCLOBENZAPRINE 10 MG TAB PO ×3 (08:04→21:37)
[2019-03-05] MEDS: DOCUSATE SODIUM 100 MG CAP PO ×2 (08:04→21:37)
[2019-03-05] MEDS: INSULIN ASPART [NOVOLOG] 3 ML PEN SC ×7 (08:08→21:50)
[2019-03-05] MEDS: INSULIN GLARGINE [LANTus] (100 UNITS/ML) SYG SC ×2 (08:09→21:49)
[2019-03-05] MEDS: HYDROCODONE/APAP (10/325) TAB PO ×3 (08:34→21:37)
[2019-03-05] MEDS: SODIUM HYPOCHLORITE (1/40) 1 LITER BTL IRR (08:35)
[2019-03-05 14:33] LABS: ADD MAN DIFF? NO
[2019-03-05 14:38] LABS: WHITE BLOOD COUNT 5.2 10^3/ul (4.8-10.8)
[2019-03-05 14:38] LABS: BASOPHIL # 0.1 10^3/ul (0.0-0.1); BASOPHILS % 1.2 % (0.0-2.0); EOSINOPHILS # 0.3 10^3/ul (0.0-0.5); EOSINOPHILS % 5.6 % (0.0-7.0); HEMOGLOBIN 13.4 g/dl (14.0-18.0); LYMPHOCYTES # 1.6 10^3/ul (0.8-2.9); LYMPHOCYTES % 31.3 % (15.0-51.0); MEAN CORPUSCULAR HEMOGLOBIN 27.1 pg (29.0-33.0); MEAN CORPUSCULAR HGB CONC 32.7 g/dl (32.0-37.0); MEAN CORPUSCULAR VOLUME 82.8 fl (82.0-101.0); MEAN PLATELET VOLUME 9.3 fl (7.4-10.4); MONOCYTE # 0.4 10^3/ul (0.3-0.9); MONOCYTES % 7.1 % (0.0-11.0); NEUTROPHIL # 2.8 10^3/ul (1.6-7.5); NEUTROPHILS % 54.4 % (39.0-77.0); PLATELET COUNT 312 10^3/UL (140-415); RED BLOOD COUNT 4.95 10^6/ul (4.70-6.10); RED CELL DISTRIBUTION WIDTH 12.9 % (11.5-14.5)
[2019-03-05 14:54] LABS: CREATINE KINASE 41 IU/L (23-200)
[2019-03-05 15:01] LABS: ANION GAP 10 (5-13); BLOOD UREA NITROGEN 21 mg/dl (7-20); CALCIUM 9.8 mg/dl (8.4-10.2); CARBON DIOXIDE 25 mmol/L (21-31); CHLORIDE 101 mmol/L (97-110); CREATININE 0.81 mg/dl (0.61-1.24); Estimated GFR > 60 mL/min (>60); GLUCOSE 266 mg/dl (70-220); MAGNESIUM 1.7 mg/dl (1.7-2.5); PHOSPHORUS 4.1 mg/dl (2.5-4.9); POTASSIUM 4.3 mmol/L (3.5-5.1); SODIUM 136 mmol/L (135-144)
[2019-03-05] MEDS ORDERED: PENDING SANTYL ORDER FOR WOUND CARE XX (15:30)
[2019-03-05] MEDS: DAPTOMYCIN 600 MG in SOD CHLORIDE 0.9% 100 ML IVPB (21:36)
[2019-03-06] MEDS: ACCU-CHEK XX (02:00)
[2019-03-06] MEDS: LEVOFLOXACIN 750 MG TABLET PO (05:57)
[2019-03-06] MEDS: HYDROmorphONE 0.5 MG/0.5 ML SYG IV ×4 (05:58→21:25)
[2019-03-06] MEDS: HEPARIN 5,000 UNIT/1 ML VIAL SC ×3 (06:04→22:00)
[2019-03-06] MEDS: HYDROCODONE/APAP (10/325) TAB PO ×3 (08:29→20:19)
[2019-03-06] MEDS: CYCLOBENZAPRINE 10 MG TAB PO ×3 (08:29→20:12)
[2019-03-06] MEDS: DOCUSATE SODIUM 100 MG CAP PO ×2 (08:29→20:12)
[2019-03-06] MEDS: INSULIN GLARGINE [LANTus] (100 UNITS/ML) SYG SC ×2 (08:34→20:18)
[2019-03-06] MEDS: INSULIN ASPART [NOVOLOG] 3 ML PEN SC ×7 (08:34→20:19)
[2019-03-06] MEDS: SODIUM HYPOCHLORITE (1/40) 1 LITER BTL IRR (08:35)
[2019-03-06] MEDS: DAPTOMYCIN 600 MG in SOD CHLORIDE 0.9% 100 ML IVPB (20:20)
[2019-03-06] MEDS: DIPHENHYDRAMINE 50 MG INJ IV (20:22)
[2019-03-07] MEDS: HYDROmorphONE 0.5 MG/0.5 ML SYG IV ×4 (02:56→15:07)
[2019-03-07] MEDS: ACCU-CHEK XX (02:56)
[2019-03-07] MEDS: LEVOFLOXACIN 750 MG TABLET PO (05:46)
[2019-03-07] MEDS: HEPARIN 5,000 UNIT/1 ML VIAL SC ×2 (05:48→13:29)
[2019-03-07] MEDS: INSULIN ASPART [NOVOLOG] 3 ML PEN SC ×4 (08:04→13:19)
[2019-03-07] MEDS: CYCLOBENZAPRINE 10 MG TAB PO ×2 (08:06→13:29)
[2019-03-07] MEDS: SODIUM HYPOCHLORITE (1/40) 1 LITER BTL IRR (08:06)
[2019-03-07] MEDS: DOCUSATE SODIUM 100 MG CAP PO (08:06)
[2019-03-07] MEDS: INSULIN GLARGINE [LANTus] (100 UNITS/ML) SYG SC (08:06)
[2019-03-07 11:03] LABS: GLUCOSE 229 mg/dl (70-220)
[2019-03-07] MEDS: DIPHENHYDRAMINE 50 MG INJ IV (11:27)
[2019-03-07] MEDS: HYDROCODONE/APAP (10/325) TAB PO (13:29)
== END 2019-03-07 17:15 | disposition home health service (06) | DRG 854 ==
LOC: 2NE 21:44 → E/R 19:46
PROC: 0QBL0ZZ Excision of Right Tarsal, Open Approach (ICD-10-PCS; principal; 2019-01-31 07:35)
PROC: 0YU Anatomical Regions, Lower Extremities, Supplement (ICD-10-PCS; 2019-01-31 07:35)
PROC: 0KBV0ZZ Excision of Right Foot Muscle, Open Approach (ICD-10-PCS; 2019-01-31 07:35)
PROC: 0KBV0ZZ Excision of Right Foot Muscle, Open Approach (ICD-10-PCS; 2019-01-31 07:35)
PROC: 0QBL0ZZ Excision of Right Tarsal, Open Approach (ICD-10-PCS; 2019-01-31 07:35)
PROC: 0HXMXZZ Transfer Right Foot Skin, External Approach (ICD-10-PCS; 2019-01-31 07:35)
PROC: 0HRMXK3 Replacement of Right Foot Skin with Nonautologous Tissue Substitute, Full Thickness, External Approach (ICD-10-PCS; 2019-01-31 07:35)
PROC: 0HRMX74 Replacement of Right Foot Skin with Autologous Tissue Substitute, Partial Thickness, External Approach (ICD-10-PCS; 2019-01-31 07:35)
PROC: B410YZZ Fluoroscopy of Abdominal Aorta using Other Contrast (ICD-10-PCS; 2019-01-31 07:35)
PROC: B41F1ZZ Fluoroscopy of Right Lower Extremity Arteries using Low Osmolar Contrast (ICD-10-PCS; 2019-01-31 07:35)
PROC: 0HBKXZZ Excision of Right Lower Leg Skin, External Approach (ICD-10-PCS; 2019-01-31 07:35)
PROC: 0HQMXZZ Repair Right Foot Skin, External Approach (ICD-10-PCS; 2019-01-31 07:35)
DX: A41.9 Sepsis, unspecified organism (principal); L03.115 Cellulitis of right lower limb; L02.611 Cutaneous abscess of right foot; L97.419 Non-pressure chronic ulcer of right heel and midfoot with unspecified severity; M86.171 Other acute osteomyelitis, right ankle and foot; E10.621 Type 1 diabetes mellitus with foot ulcer; E10.69 Type 1 diabetes mellitus with other specified complication; E10.42 Type 1 diabetes mellitus with diabetic polyneuropathy; E10.65 Type 1 diabetes mellitus with hyperglycemia; F17.200 Nicotine dependence, unspecified, uncomplicated; E78.5 Hyperlipidemia, unspecified; B95.2 Enterococcus as the cause of diseases classified elsewhere; B96.89 Other specified bacterial agents as the cause of diseases classified elsewhere; B00.1 Herpesviral vesicular dermatitis; I95.9 Hypotension, unspecified
CPT/HCPCS: 36246; 36415; 71045; 73630; 73700; 75625; 75710; 80048; 80053; 80061; 80069; 80202; 81003; 82550; 82565; 82947; 82962; 83036; 83605; 83735; 84100; 84443; 84484; 84520; 85025; 85610; 85651; 85730; 86140; 87040-91; 87070; 87075; 87086; 87116; 88304; 88311; 93005; 93922; 96374; 96375; 97161; 99285-25

== ENCOUNTER 2019-04-29 01:23 | Emergency (ER) | payer OTHER ==
[2019-04-29] MEDS: LIDOCAINE 1%/EPI (MDV) 50 ML INJ INJ (02:30)
[2019-04-29] MEDS: HYDROmorphONE 1 MG/ML SYG IM (03:12)
[2019-04-29] MEDS: ONDANSETRON (ODT) 4 MG TAB ODT (03:12)
== END 2019-04-29 05:09 | disposition home or self-care (01) ==
LOC: E/R 01:23
DX: S02.42XA Fracture of alveolus of maxilla, initial encounter for closed fracture (principal); S03.2XXA Dislocation of tooth, initial encounter; E11.9 Type 2 diabetes mellitus without complications; X99.8XXA Assault by other sharp object, initial encounter; Y92.9 Unspecified place or not applicable; Z79.4 Long term (current) use of insulin
CPT/HCPCS: 12005; 70450; 70486; 96372; 99285-25

== ENCOUNTER 2019-05-08 03:41 | Emergency (ER) | payer OTHER | END 2019-05-08 04:52 | disposition home or self-care (01) | LOC: FTE 03:41 | DX: Z48.02 Encounter for removal of sutures (principal); Z79.4 Long term (current) use of insulin | CPT/HCPCS: 99281; Z7502 ==

== ENCOUNTER 2019-05-12 01:51 | Inpatient (IN) | payer OTHER ==
[2019-05-12 03:40] LABS: ADD MAN DIFF? NO
[2019-05-12 04:11] LABS: ANION GAP 9 (5-13); BLOOD UREA NITROGEN 17 mg/dl (7-20); C-REACTIVE PROTEIN 0.7 mg/dl (0.0-0.9); CALCIUM 8.6 mg/dl (8.4-10.2); CARBON DIOXIDE 26 mmol/L (21-31); CHLORIDE 103 mmol/L (97-110); CREATININE 0.86 mg/dl (0.61-1.24); Estimated GFR > 60 mL/min (>60); GLUCOSE 383 mg/dl (70-220); POTASSIUM 4.3 mmol/L (3.5-5.1); SODIUM 138 mmol/L (135-144)
[2019-05-12 04:12] LABS: BASOPHIL # 0.1 10^3/ul (0.0-0.1); BASOPHILS % 0.8 % (0.0-2.0); EOSINOPHILS # 0.2 10^3/ul (0.0-0.5); EOSINOPHILS % 3.3 % (0.0-7.0); HEMATOCRIT 34.6 % (42.0-52.0); HEMOGLOBIN 11.2 g/dl (14.0-18.0); LYMPHOCYTES # 2.4 10^3/ul (0.8-2.9); MEAN CORPUSCULAR HEMOGLOBIN 26.4 pg (29.0-33.0); MEAN CORPUSCULAR HGB CONC 32.4 g/dl (32.0-37.0); MEAN CORPUSCULAR VOLUME 81.6 fl (82.0-101.0); MEAN PLATELET VOLUME 9.6 fl (7.4-10.4); MONOCYTE # 0.4 10^3/ul (0.3-0.9); NEUTROPHILS % 49.7 % (39.0-77.0); PLATELET COUNT 363 10^3/UL (140-415); RED BLOOD COUNT 4.24 10^6/ul (4.70-6.10); RED CELL DISTRIBUTION WIDTH 13.7 % (11.5-14.5)
[2019-05-12] MEDS: ONDANSETRON 4 MG INJ IV (04:35)
[2019-05-12] MEDS: morphine 4 MG/ML VIAL IV ×2 (04:35→10:14)
[2019-05-12] MEDS: SOD CHLORIDE 0.9% 1,000 ML IV (04:35)
[2019-05-12 05:30] LABS: ERYTHROCYTE SEDIMENTATION RATE 40 mm/Hr (0-15)
[2019-05-12] MEDS ORDERED: ONDANSETRON 4 MG INJ IV (05:30)
[2019-05-12] MEDS ORDERED: ACETAMINOPHEN 325 MG TAB PO ×3 (05:30→12:00)
[2019-05-12] MEDS: LINEZOLID 600 MG/300 ML (PMX) 300 ML IVPB (07:28)
[2019-05-12] MEDS ORDERED: HYDROCODONE/APAP (5/325) TAB PO (10:00)
[2019-05-12] MEDS ORDERED: CYCLOBENZAPRINE 10 MG TAB PO (10:00)
[2019-05-12] MEDS ORDERED: GLUCOSE GEL 15 GRAM TUBE BUCCAL (10:30)
[2019-05-12] MEDS ORDERED: GLUCAGON 1 MG INJ IM (10:30)
[2019-05-12] MEDS ORDERED: GLUCOSE GEL 15 GRAM TUBE PO ×2 (10:30)
[2019-05-12 11:39] LABS: HEMOGLOBIN A1C 10.7 % (0-5.9)
[2019-05-12] MEDS ORDERED: HYDROCODONE/APAP (10/325) TAB PO (12:00)
[2019-05-12] MEDS: INSULIN ASPART [NOVOLOG] 3 ML PEN SC ×6 (12:34→20:48)
[2019-05-12] MEDS: POVIDONE IODINE 10% 28.4 GM OINT TOP (12:35)
[2019-05-12] MEDS: MINERAL OIL 240 ML LOT TOP (12:36)
[2019-05-12 12:54] LABS: LACTIC ACID 0.7 mmol/L (0.5-2.0)
[2019-05-12] MEDS: CEFEPIME 1GM/50 ML (PMX) 50 ML IVPB (18:11)
[2019-05-12] MEDS: HYDROmorphONE 0.5 MG/0.5 ML SYG IV ×2 (18:14→22:26)
[2019-05-12] MEDS: ACCU-CHEK XX (20:43)
[2019-05-12] MEDS: INSULIN GLARGINE [LANTus] (100 UNITS/ML) SYG SC (20:49)
[2019-05-13 04:50] LABS: ADD MAN DIFF? NO
[2019-05-13 05:12] LABS: ANION GAP 7 (5-13); BLOOD UREA NITROGEN 16 mg/dl (7-20); CARBON DIOXIDE 28 mmol/L (21-31); CHLORIDE 102 mmol/L (97-110); Estimated GFR > 60 mL/min (>60); GLUCOSE 193 mg/dl (70-220); POTASSIUM 4.4 mmol/L (3.5-5.1); SODIUM 137 mmol/L (135-144)
[2019-05-13 05:15] LABS: BASOPHILS % 0.6 % (0.0-2.0); EOSINOPHILS # 0.2 10^3/ul (0.0-0.5); HEMATOCRIT 41.8 % (42.0-52.0); HEMOGLOBIN 13.5 g/dl (14.0-18.0); LYMPHOCYTES # 0.9 10^3/ul (0.8-2.9); LYMPHOCYTES % 18.6 % (15.0-51.0); MEAN CORPUSCULAR HEMOGLOBIN 26.4 pg (29.0-33.0); MEAN CORPUSCULAR HGB CONC 32.3 g/dl (32.0-37.0); MEAN CORPUSCULAR VOLUME 81.8 fl (82.0-101.0); MEAN PLATELET VOLUME 9.2 fl (7.4-10.4); MONOCYTE # 0.3 10^3/ul (0.3-0.9); MONOCYTES % 5.8 % (0.0-11.0); NEUTROPHIL # 3.5 10^3/ul (1.6-7.5); NEUTROPHILS % 70.6 % (39.0-77.0); PLATELET COUNT 354 10^3/UL (140-415); RED BLOOD COUNT 5.11 10^6/ul (4.70-6.10); RED CELL DISTRIBUTION WIDTH 13.6 % (11.5-14.5)
[2019-05-13] MEDS: CEFEPIME 1GM/50 ML (PMX) 50 ML IVPB ×2 (05:16→17:33)
[2019-05-13] MEDS: PANTOPRAZOLE (EC) 40 MG TAB PO (05:16)
[2019-05-13] MEDS: HYDROmorphONE 0.5 MG/0.5 ML SYG IV ×4 (05:17→21:49)
[2019-05-13] MEDS: INSULIN ASPART [NOVOLOG] 3 ML PEN SC ×7 (08:30→21:14)
[2019-05-13] MEDS: INSULIN GLARGINE [LANTus] (100 UNITS/ML) SYG SC ×2 (08:32→21:13)
[2019-05-13] MEDS: ENOXAPARIN 40 MG/0.4 ML SYG SC (08:33)
[2019-05-13] MEDS: POVIDONE IODINE 10% 28.4 GM OINT TOP (08:37)
[2019-05-13] MEDS: DEXTROSE 50% 50 ML SYRINGE IV (14:13)
[2019-05-13] MEDS: NPH, HUMAN INSULIN ISOPHANE 3ML VIAL SC (21:15)
[2019-05-14] MEDS: POVIDONE IODINE 10% 28.4 GM OINT TOP ×3 (01:52→20:45)
[2019-05-14] MEDS: HYDROmorphONE 0.5 MG/0.5 ML SYG IV ×4 (02:01→17:26)
[2019-05-14] MEDS: CEFEPIME 1GM/50 ML (PMX) 50 ML IVPB ×2 (06:00→17:20)
[2019-05-14] MEDS: PANTOPRAZOLE (EC) 40 MG TAB PO (06:00)
[2019-05-14 06:26] LABS: ADD MAN DIFF? NO
[2019-05-14 06:28] LABS: WHITE BLOOD COUNT 4.3 10^3/ul (4.8-10.8)
[2019-05-14 06:28] LABS: BASOPHILS % 0.9 % (0.0-2.0); EOSINOPHILS # 0.2 10^3/ul (0.0-0.5); EOSINOPHILS % 4.9 % (0.0-7.0); HEMATOCRIT 44.6 % (42.0-52.0); HEMOGLOBIN 14.4 g/dl (14.0-18.0); LYMPHOCYTES % 23.8 % (15.0-51.0); MEAN CORPUSCULAR HEMOGLOBIN 26.4 pg (29.0-33.0); MEAN CORPUSCULAR HGB CONC 32.3 g/dl (32.0-37.0); MEAN CORPUSCULAR VOLUME 81.8 fl (82.0-101.0); MEAN PLATELET VOLUME 9.1 fl (7.4-10.4); MONOCYTE # 0.3 10^3/ul (0.3-0.9); MONOCYTES % 7.9 % (0.0-11.0); NEUTROPHIL # 2.7 10^3/ul (1.6-7.5); PLATELET COUNT 406 10^3/UL (140-415); RED BLOOD COUNT 5.45 10^6/ul (4.70-6.10)
[2019-05-14 06:47] LABS: ANION GAP 6 (5-13); BLOOD UREA NITROGEN 17 mg/dl (7-20); CALCIUM 9.3 mg/dl (8.4-10.2); CARBON DIOXIDE 32 mmol/L (21-31); CHLORIDE 101 mmol/L (97-110); CREATININE 0.88 mg/dl (0.61-1.24); Estimated GFR > 60 mL/min (>60); GLUCOSE 200 mg/dl (70-220); SODIUM 139 mmol/L (135-144)
[2019-05-14] MEDS: HYDROCODONE/APAP (10/325) TAB PO (08:17)
[2019-05-14] MEDS: INSULIN ASPART [NOVOLOG] 3 ML PEN SC ×7 (08:19→20:20)
[2019-05-14] MEDS: INSULIN GLARGINE [LANTus] (100 UNITS/ML) SYG SC ×2 (08:20→20:19)
[2019-05-14] MEDS: ENOXAPARIN 40 MG/0.4 ML SYG SC (08:21)
[2019-05-14] MEDS ORDERED: INSULIN ASPART [NOVOLOG] 3 ML PEN SC (12:00)
[2019-05-14] MEDS: DEXTROSE 50% 50 ML SYRINGE IV ×2 (13:42→19:53)
[2019-05-14] MEDS: NPH, HUMAN INSULIN ISOPHANE 3ML VIAL SC (20:20)
[2019-05-15] MEDS: HYDROmorphONE 0.5 MG/0.5 ML SYG IV ×5 (01:39→19:17)
[2019-05-15] MEDS: PANTOPRAZOLE (EC) 40 MG TAB PO (05:36)
[2019-05-15] MEDS: CEFEPIME 1GM/50 ML (PMX) 50 ML IVPB ×2 (05:36→17:45)
[2019-05-15] MEDS: HYDROCODONE/APAP (10/325) TAB PO (08:18)
[2019-05-15] MEDS: INSULIN GLARGINE [LANTus] (100 UNITS/ML) SYG SC ×2 (08:19→20:37)
[2019-05-15] MEDS: INSULIN ASPART [NOVOLOG] 3 ML PEN SC ×7 (08:19→20:37)
[2019-05-15] MEDS: ENOXAPARIN 40 MG/0.4 ML SYG SC (08:21)
[2019-05-15] MEDS: DOCUSATE SODIUM 100 MG CAP PO ×2 (10:51→20:25)
[2019-05-15] MEDS: POVIDONE IODINE 10% 28.4 GM OINT TOP ×2 (14:54→22:14)
[2019-05-15] MEDS ORDERED: VANCOMYCIN IV PER PHARMACY XX (17:30)
[2019-05-15] MEDS ORDERED: DIPHENHYDRAMINE 50 MG INJ (20:48)
[2019-05-15] MEDS: DIPHENHYDRAMINE 50 MG INJ IV (20:50)
[2019-05-15] MEDS: VANCOMYCIN HCL 1.75 GM in SOD CHLORIDE 0.9% 500 ML IVPB (20:50)
[2019-05-15] MEDS: NPH, HUMAN INSULIN ISOPHANE 3ML VIAL SC (22:11)
[2019-05-16] MEDS: HYDROmorphONE 0.5 MG/0.5 ML SYG IV ×5 (02:22→22:02)
[2019-05-16] MEDS: HYDROCODONE/APAP (10/325) TAB PO ×3 (04:35→20:49)
[2019-05-16] MEDS: CEFEPIME 1GM/50 ML (PMX) 50 ML IVPB (06:03)
[2019-05-16] MEDS: PANTOPRAZOLE (EC) 40 MG TAB PO (06:03)
[2019-05-16] MEDS: INSULIN ASPART [NOVOLOG] 3 ML PEN SC ×7 (08:37→20:48)
[2019-05-16] MEDS: INSULIN GLARGINE [LANTus] (100 UNITS/ML) SYG SC ×2 (08:38→20:49)
[2019-05-16] MEDS: ENOXAPARIN 40 MG/0.4 ML SYG SC (08:39)
[2019-05-16] MEDS: DOCUSATE SODIUM 100 MG CAP PO ×2 (08:39→20:51)
[2019-05-16] MEDS: VANCOMYCIN HCL 1.75 GM in SOD CHLORIDE 0.9% 500 ML IVPB (08:40)
[2019-05-16] MEDS: POVIDONE IODINE 10% 28.4 GM OINT TOP ×2 (08:46→22:04)
[2019-05-16] MEDS: DIPHENHYDRAMINE 50 MG INJ IM (09:55)
[2019-05-16] MEDS: ZYVOX 600 MG TAB PO ×2 (12:15→20:51)
[2019-05-16] MEDS ORDERED: AMOXICILLIN 500 MG CAP PO (14:00)
[2019-05-16] MEDS: COLLAGENASE 5 GM (UD JAR) TOP (17:00)
[2019-05-16] MEDS: CIPROFLOXACIN 500 MG TAB PO (17:25)
[2019-05-16] MEDS: NPH, HUMAN INSULIN ISOPHANE 3ML VIAL SC (22:01)
[2019-05-17] MEDS: HYDROmorphONE 0.5 MG/0.5 ML SYG IV ×3 (05:31→23:19)
[2019-05-17] MEDS: PANTOPRAZOLE (EC) 40 MG TAB PO (05:31)
[2019-05-17] MEDS: CIPROFLOXACIN 500 MG TAB PO ×2 (05:31→17:13)
[2019-05-17 06:25] LABS: ADD MAN DIFF? NO
[2019-05-17 06:26] LABS: BASOPHIL # 0.1 10^3/ul (0.0-0.1); BASOPHILS % 1.4 % (0.0-2.0); EOSINOPHILS # 0.3 10^3/ul (0.0-0.5); EOSINOPHILS % 5.1 % (0.0-7.0); HEMATOCRIT 41.3 % (42.0-52.0); HEMOGLOBIN 13.6 g/dl (14.0-18.0); LYMPHOCYTES # 1.6 10^3/ul (0.8-2.9); LYMPHOCYTES % 33.1 % (15.0-51.0); MEAN CORPUSCULAR HEMOGLOBIN 26.7 pg (29.0-33.0); MEAN CORPUSCULAR HGB CONC 32.9 g/dl (32.0-37.0); MEAN PLATELET VOLUME 9.6 fl (7.4-10.4); MONOCYTE # 0.4 10^3/ul (0.3-0.9); MONOCYTES % 8.6 % (0.0-11.0); NEUTROPHIL # 2.5 10^3/ul (1.6-7.5); NEUTROPHILS % 51.6 % (39.0-77.0); PLATELET COUNT 340 10^3/UL (140-415); RED CELL DISTRIBUTION WIDTH 13.4 % (11.5-14.5)
[2019-05-17 06:26] LABS: WHITE BLOOD COUNT 4.9 10^3/ul (4.8-10.8)
[2019-05-17 06:54] LABS: ANION GAP 10 (5-13); BLOOD UREA NITROGEN 18 mg/dl (7-20); CALCIUM 9.2 mg/dl (8.4-10.2); CARBON DIOXIDE 25 mmol/L (21-31); CHLORIDE 101 mmol/L (97-110); CREATININE 0.78 mg/dl (0.61-1.24); Estimated GFR > 60 mL/min (>60); GLUCOSE 300 mg/dl (70-220); POTASSIUM 4.1 mmol/L (3.5-5.1); SODIUM 136 mmol/L (135-144)
[2019-05-17] MEDS: DOCUSATE SODIUM 100 MG CAP PO ×2 (08:20→20:20)
[2019-05-17] MEDS: POVIDONE IODINE 10% 28.4 GM OINT TOP ×2 (08:21→20:35)
[2019-05-17] MEDS: ZYVOX 600 MG TAB PO ×2 (08:21→20:20)
[2019-05-17] MEDS: COLLAGENASE 5 GM (UD JAR) TOP (08:21)
[2019-05-17] MEDS: DAKINS 0.0125%(1/40) 473 ML SOLUTION TP (08:21)
[2019-05-17] MEDS: INSULIN ASPART [NOVOLOG] 3 ML PEN SC ×7 (08:23→20:28)
[2019-05-17] MEDS: INSULIN GLARGINE [LANTus] (100 UNITS/ML) SYG SC ×2 (08:24→20:26)
[2019-05-17] MEDS: ENOXAPARIN 40 MG/0.4 ML SYG SC (08:24)
[2019-05-17] MEDS: HYDROCODONE/APAP (10/325) TAB PO ×2 (08:38→20:20)
[2019-05-17] MEDS: NPH, HUMAN INSULIN ISOPHANE 3ML VIAL SC (20:27)
[2019-05-18] MEDS: PANTOPRAZOLE (EC) 40 MG TAB PO (05:31)
[2019-05-18] MEDS: CIPROFLOXACIN 500 MG TAB PO ×2 (05:31→17:27)
[2019-05-18] MEDS: INSULIN ASPART [NOVOLOG] 3 ML PEN SC ×8 (07:30→20:44)
[2019-05-18] MEDS: ZYVOX 600 MG TAB PO ×2 (08:01→17:27)
[2019-05-18] MEDS: INSULIN GLARGINE [LANTus] (100 UNITS/ML) SYG SC ×2 (08:02→20:40)
[2019-05-18] MEDS: DOCUSATE SODIUM 100 MG CAP PO ×2 (08:03→20:38)
[2019-05-18] MEDS: ENOXAPARIN 40 MG/0.4 ML SYG SC (08:03)
[2019-05-18] MEDS: POVIDONE IODINE 10% 28.4 GM OINT TOP ×2 (08:06→20:45)
[2019-05-18] MEDS: DAKINS 0.0125%(1/40) 473 ML SOLUTION TP (08:07)
[2019-05-18] MEDS: HYDROCODONE/APAP (10/325) TAB PO ×2 (08:11→19:01)
[2019-05-18] MEDS: COLLAGENASE 5 GM (UD JAR) TOP (08:12)
[2019-05-18] MEDS: HYDROmorphONE 0.5 MG/0.5 ML SYG IV ×2 (11:35→20:39)
[2019-05-18] MEDS: NPH, HUMAN INSULIN ISOPHANE 3ML VIAL SC (20:41)
[2019-05-19] MEDS: HYDROmorphONE 0.5 MG/0.5 ML SYG IV ×2 (01:07→07:56)
[2019-05-19] MEDS: PANTOPRAZOLE (EC) 40 MG TAB PO (05:47)
[2019-05-19] MEDS: CIPROFLOXACIN 500 MG TAB PO (05:47)
[2019-05-19] MEDS: HYDROCODONE/APAP (10/325) TAB PO ×2 (05:51→11:59)
[2019-05-19] MEDS: INSULIN ASPART [NOVOLOG] 3 ML PEN SC ×4 (08:04→12:03)
[2019-05-19] MEDS: INSULIN GLARGINE [LANTus] (100 UNITS/ML) SYG SC (08:05)
[2019-05-19] MEDS: COLLAGENASE 5 GM (UD JAR) TOP (09:45)
[2019-05-19] MEDS: ZYVOX 600 MG TAB PO (09:45)
[2019-05-19] MEDS: DOCUSATE SODIUM 100 MG CAP PO (09:45)
[2019-05-19] MEDS: ENOXAPARIN 40 MG/0.4 ML SYG SC (09:45)
[2019-05-19] MEDS: DAKINS 0.0125%(1/40) 473 ML SOLUTION TP (09:45)
[2019-05-19] MEDS: POVIDONE IODINE 10% 28.4 GM OINT TOP (09:46)
== END 2019-05-19 14:20 | disposition home health service (06) | DRG 638 ==
LOC: E/R 01:51 → PP2 05:18
DX: E10.621 Type 1 diabetes mellitus with foot ulcer (principal); M86.671 Other chronic osteomyelitis, right ankle and foot; L97.416 Non-pressure chronic ulcer of right heel and midfoot with bone involvement without evidence of necrosis; E10.65 Type 1 diabetes mellitus with hyperglycemia; E10.42 Type 1 diabetes mellitus with diabetic polyneuropathy; B96.89 Other specified bacterial agents as the cause of diseases classified elsewhere
CPT/HCPCS: 73630; 73700; 80048; 82962; 83036; 83605; 85025; 85651; 86140; 87070; 96374; 96375; 97166; 99285-25

== ENCOUNTER 2019-05-30 04:12 | Emergency (ER) | payer OTHER ==
[2019-05-30] MEDS: KETOROLAC 30 MG INJ IM (04:56)
== END 2019-05-30 05:15 | disposition home or self-care (01) ==
LOC: FTE 04:12
DX: S30.860A Insect bite (nonvenomous) of lower back and pelvis, initial encounter (principal); F17.210 Nicotine dependence, cigarettes, uncomplicated; L08.9 Local infection of the skin and subcutaneous tissue, unspecified; E11.9 Type 2 diabetes mellitus without complications; W57.XXXA Bitten or stung by nonvenomous insect and other nonvenomous arthropods, initial encounter; Y92.9 Unspecified place or not applicable; Z79.4 Long term (current) use of insulin
CPT/HCPCS: 96372; 99284-25

== ENCOUNTER 2019-06-18 03:49 | Inpatient (IN) | payer OTHER ==
[2019-06-18] MEDS: SODIUM CHLORIDE 0.9% 1L BAG IV* (04:32)
[2019-06-18] MEDS: AZTREONAM 1 GM/NS (PMX) 50 ML IVPB (04:33)
[2019-06-18 04:34] LABS: ADD MAN DIFF? NO
[2019-06-18 04:38] LABS: BASOPHIL # 0.1 10^3/ul (0.0-0.1); BASOPHILS % 0.7 % (0.0-2.0); EOSINOPHILS # 0.2 10^3/ul (0.0-0.5); EOSINOPHILS % 2.2 % (0.0-7.0); HEMATOCRIT 34.8 % (42.0-52.0); HEMOGLOBIN 11.2 g/dl (14.0-18.0); LYMPHOCYTES # 2.1 10^3/ul (0.8-2.9); LYMPHOCYTES % 23.1 % (15.0-51.0); MEAN CORPUSCULAR HEMOGLOBIN 26.4 pg (29.0-33.0); MEAN CORPUSCULAR HGB CONC 32.2 g/dl (32.0-37.0); MEAN CORPUSCULAR VOLUME 81.9 fl (82.0-101.0); MEAN PLATELET VOLUME 8.8 fl (7.4-10.4); MONOCYTE # 0.7 10^3/ul (0.3-0.9); MONOCYTES % 7.6 % (0.0-11.0); PLATELET COUNT 512 10^3/UL (140-415); RED BLOOD COUNT 4.25 10^6/ul (4.70-6.10); RED CELL DISTRIBUTION WIDTH 14.1 % (11.5-14.5)
[2019-06-18 04:38] LABS: WHITE BLOOD COUNT 9.2 10^3/ul (4.8-10.8)
[2019-06-18] MEDS: CLINDAMYCIN 900 MG (PMX) 50 ML IVPB (04:39)
[2019-06-18] MEDS: VANCOMYCIN 1 GM (PMX) 250 ML IVPB (04:43)
[2019-06-18] MEDS: HYDROCODONE/APAP (10/325) TAB PO (04:43)
[2019-06-18] MEDS: DIPHENHYDRAMINE 50 MG INJ IV (04:43)
[2019-06-18 04:57] LABS: INR 1.07; PARTIAL THROMBOPLASTIN TIME 38.3 Sec (23.0-35.0); PT RATIO 1.1
[2019-06-18 05:00] LABS: ANION GAP 6 (5-13); BLOOD UREA NITROGEN 19 mg/dl (7-20); C-REACTIVE PROTEIN 4.1 mg/dl (0.0-0.9); CARBON DIOXIDE 29 mmol/L (21-31); CHLORIDE 101 mmol/L (97-110); CREATININE 0.86 mg/dl (0.61-1.24); Estimated GFR > 60 mL/min (>60); GLUCOSE 202 mg/dl (70-220); POTASSIUM 3.9 mmol/L (3.5-5.1); SODIUM 136 mmol/L (135-144)
[2019-06-18] MEDS ORDERED: ACETAMINOPHEN 325 MG TAB PO (05:30)
[2019-06-18] MEDS ORDERED: ONDANSETRON 4 MG INJ IV (05:30)
[2019-06-18 06:01] LABS: ERYTHROCYTE SEDIMENTATION RATE 73 mm/Hr (0-15)
[2019-06-18 07:46] LABS: LACTIC ACID 0.9 mmol/L (0.5-2.0)
[2019-06-18] MEDS ORDERED: GLUCOSE GEL 15 GRAM TUBE PO ×2 (08:30)
[2019-06-18] MEDS ORDERED: GLUCOSE GEL 15 GRAM TUBE BUCCAL (08:30)
[2019-06-18] MEDS ORDERED: GLUCAGON 1 MG INJ IM (08:30)
[2019-06-18] MEDS ORDERED: DEXTROSE 50% 50 ML SYRINGE IV ×2 (08:30)
[2019-06-18] MEDS: morphine 2 MG INJ IV ×2 (08:55→17:33)
[2019-06-18 09:55] LABS: LACTIC ACID 0.7 mmol/L (0.5-2.0)
[2019-06-18] MEDS: INSULIN ASPART [NOVOLOG] 3 ML PEN SC ×3 (12:25→21:00)
[2019-06-18] MEDS ORDERED: VANCOMYCIN IV PER PHARMACY XX (17:00)
[2019-06-18] MEDS: DIPHENHYDRAMINE 25 MG CAP PO (21:06)
[2019-06-18] MEDS: VANCOMYCIN 1.5 GM/NS 250 ML 250 ML IVPB (21:13)
[2019-06-18] MEDS: MEROPENEM 1 GM/50ML(PMX) 50 ML IVPB (21:14)
[2019-06-19] MEDS: ACCU-CHEK XX (01:37)
[2019-06-19] MEDS: DIPHENHYDRAMINE 25 MG CAP PO (06:07)
[2019-06-19] MEDS: morphine 2 MG INJ IV ×3 (06:07→21:41)
[2019-06-19] MEDS: VANCOMYCIN 1.25 GM/NS 250 ML 250 ML IVPB ×2 (06:07→13:50)
[2019-06-19] MEDS: MEROPENEM 1 GM/50ML(PMX) 50 ML IVPB ×2 (09:19→21:43)
[2019-06-19] MEDS: INSULIN ASPART [NOVOLOG] 3 ML PEN SC ×4 (09:27→22:01)
[2019-06-19] MEDS: D5W-0.45 NACL + KCL 20 MEQ 1,000 ML IV (11:39)
[2019-06-19] MEDS: DIPHENHYDRAMINE 50 MG INJ IV (13:50)
[2019-06-19] MEDS ORDERED: ONDANSETRON 4 MG INJ IV (18:00)
[2019-06-19] MEDS ORDERED: HYDROmorphONE 1 MG/5 ML IV SYRINGE IV ×3 (18:00)
[2019-06-19] MEDS ORDERED: FENTAnyl 50 MCG/ML VIAL IV ×3 (18:00)
[2019-06-19] MEDS ORDERED: DESFLURANE 15 MIN (18:20)
[2019-06-19] MEDS ORDERED: ROPIVACAINE 0.2% 20 ML VIAL (18:24)
[2019-06-19] MEDS ORDERED: PROPOFOL 20 ML (18:26)
[2019-06-19] MEDS ORDERED: MIDAZOLAM 1 MG/ML 2 ML INJ (18:26)
[2019-06-19] MEDS ORDERED: EPHEDrine 25 MG/5 ML SYG (18:40)
[2019-06-19 21:46] LABS: VANCOMYCIN,TROUGH 12.5 ug/ml (10.0-20.0)
[2019-06-20] MEDS: DIPHENHYDRAMINE 25 MG CAP PO ×3 (00:06→13:28)
[2019-06-20] MEDS: VANCOMYCIN 1.25 GM/NS 250 ML 250 ML IVPB ×4 (00:07→22:32)
[2019-06-20] MEDS: D5W-0.45 NACL + KCL 20 MEQ 1,000 ML IV (00:30)
[2019-06-20] MEDS: ACCU-CHEK XX ×2 (02:00→22:33)
[2019-06-20] MEDS: morphine 2 MG INJ IV ×3 (06:24→19:54)
[2019-06-20 06:37] LABS: ADD MAN DIFF? NO
[2019-06-20 06:49] LABS: WHITE BLOOD COUNT 5.6 10^3/ul (4.8-10.8)
[2019-06-20 06:49] LABS: BASOPHIL # 0.1 10^3/ul (0.0-0.1); BASOPHILS % 1.1 % (0.0-2.0); EOSINOPHILS # 0.2 10^3/ul (0.0-0.5); EOSINOPHILS % 3.8 % (0.0-7.0); HEMATOCRIT 39.8 % (42.0-52.0); HEMOGLOBIN 12.6 g/dl (14.0-18.0); LYMPHOCYTES # 1.5 10^3/ul (0.8-2.9); LYMPHOCYTES % 27.2 % (15.0-51.0); MEAN CORPUSCULAR HEMOGLOBIN 26.4 pg (29.0-33.0); MEAN CORPUSCULAR HGB CONC 31.7 g/dl (32.0-37.0); MEAN CORPUSCULAR VOLUME 83.4 fl (82.0-101.0); MEAN PLATELET VOLUME 8.8 fl (7.4-10.4); MONOCYTE # 0.4 10^3/ul (0.3-0.9); MONOCYTES % 6.3 % (0.0-11.0); NEUTROPHIL # 3.4 10^3/ul (1.6-7.5); NEUTROPHILS % 61.4 % (39.0-77.0); PLATELET COUNT 504 10^3/UL (140-415); RED BLOOD COUNT 4.77 10^6/ul (4.70-6.10); RED CELL DISTRIBUTION WIDTH 13.9 % (11.5-14.5)
[2019-06-20 07:06] LABS: ANION GAP 7 (5-13); BLOOD UREA NITROGEN 17 mg/dl (7-20); CALCIUM 8.8 mg/dl (8.4-10.2); CARBON DIOXIDE 27 mmol/L (21-31); CHLORIDE 98 mmol/L (97-110); CREATININE 0.74 mg/dl (0.61-1.24); Estimated GFR > 60 mL/min (>60); GLUCOSE 350 mg/dl (70-220); POTASSIUM 4.5 mmol/L (3.5-5.1); SODIUM 132 mmol/L (135-144)
[2019-06-20] MEDS: INSULIN ASPART [NOVOLOG] 3 ML PEN SC ×7 (09:02→23:09)
[2019-06-20] MEDS: MEROPENEM 1 GM/50ML(PMX) 50 ML IVPB ×2 (09:05→20:28)
[2019-06-20] MEDS: INSULIN GLARGINE [LANTus] (100 UNITS/ML) SYG SC (20:46)
[2019-06-20] MEDS: NPH, HUMAN INSULIN ISOPHANE 3ML VIAL SC (22:36)
[2019-06-21] MEDS: ACCU-CHEK XX ×2 (02:00→17:41)
[2019-06-21] MEDS: VANCOMYCIN 1.25 GM/NS 250 ML 250 ML IVPB ×3 (06:17→22:21)
[2019-06-21] MEDS: INSULIN ASPART [NOVOLOG] 3 ML PEN SC ×8 (08:22→21:04)
[2019-06-21] MEDS: INSULIN GLARGINE [LANTus] (100 UNITS/ML) SYG SC ×2 (08:23→21:03)
[2019-06-21] MEDS: ENOXAPARIN 30 MG/0.3 ML SYG SC (08:24)
[2019-06-21 09:13] LABS: ADD MAN DIFF? NO
[2019-06-21 09:31] LABS: WHITE BLOOD COUNT 4.5 10^3/ul (4.8-10.8)
[2019-06-21 09:31] LABS: BASOPHIL # 0.1 10^3/ul (0.0-0.1); BASOPHILS % 1.8 % (0.0-2.0); EOSINOPHILS # 0.2 10^3/ul (0.0-0.5); EOSINOPHILS % 4.6 % (0.0-7.0); HEMATOCRIT 43.4 % (42.0-52.0); HEMOGLOBIN 13.8 g/dl (14.0-18.0); LYMPHOCYTES # 1.4 10^3/ul (0.8-2.9); LYMPHOCYTES % 31.9 % (15.0-51.0); MEAN CORPUSCULAR HEMOGLOBIN 26.2 pg (29.0-33.0); MEAN CORPUSCULAR HGB CONC 31.8 g/dl (32.0-37.0); MEAN CORPUSCULAR VOLUME 82.4 fl (82.0-101.0); MONOCYTE # 0.3 10^3/ul (0.3-0.9); MONOCYTES % 7.3 % (0.0-11.0); NEUTROPHIL # 2.5 10^3/ul (1.6-7.5); NEUTROPHILS % 54.2 % (39.0-77.0); PLATELET COUNT 516 10^3/UL (140-415); RED BLOOD COUNT 5.27 10^6/ul (4.70-6.10); RED CELL DISTRIBUTION WIDTH 14.1 % (11.5-14.5)
[2019-06-21] MEDS: MEROPENEM 1 GM/50ML(PMX) 50 ML IVPB ×2 (09:47→21:04)
[2019-06-21 09:51] LABS: ANION GAP 8 (5-13); BLOOD UREA NITROGEN 17 mg/dl (7-20); CALCIUM 9.2 mg/dl (8.4-10.2); CARBON DIOXIDE 30 mmol/L (21-31); CHLORIDE 98 mmol/L (97-110); CREATININE 0.76 mg/dl (0.61-1.24); Estimated GFR > 60 mL/min (>60); GLUCOSE 228 mg/dl (70-220); POTASSIUM 4.1 mmol/L (3.5-5.1); SODIUM 136 mmol/L (135-144)
[2019-06-21] MEDS: morphine 2 MG INJ IV ×3 (11:33→19:07)
[2019-06-21] MEDS: DIPHENHYDRAMINE 25 MG CAP PO (14:12)
[2019-06-21] MEDS: DOCUSATE SODIUM 100 MG CAP PO (21:00)
[2019-06-21] MEDS: NPH, HUMAN INSULIN ISOPHANE 3ML VIAL SC (22:20)
[2019-06-22] MEDS: ACCU-CHEK XX (01:40)
[2019-06-22] MEDS: VANCOMYCIN 1.25 GM/NS 250 ML 250 ML IVPB ×3 (05:39→21:04)
[2019-06-22] MEDS: HYDROmorphONE 0.5 MG/0.5 ML SYG IV ×4 (06:08→21:02)
[2019-06-22] MEDS: MEROPENEM 1 GM/50ML(PMX) 50 ML IVPB (08:13)
[2019-06-22] MEDS: DOCUSATE SODIUM 100 MG CAP PO ×2 (08:13→20:54)
[2019-06-22] MEDS: INSULIN ASPART [NOVOLOG] 3 ML PEN SC ×7 (08:16→20:59)
[2019-06-22] MEDS: ENOXAPARIN 30 MG/0.3 ML SYG SC (08:17)
[2019-06-22] MEDS ORDERED: BISACODYL (EC) 5 MG TAB PO (16:30)
[2019-06-22] MEDS: DIPHENHYDRAMINE 25 MG CAP PO (20:54)
[2019-06-22] MEDS: INSULIN GLARGINE [LANTus] (100 UNITS/ML) SYG SC (21:00)
[2019-06-22] MEDS: NPH, HUMAN INSULIN ISOPHANE 3ML VIAL SC (21:01)
[2019-06-23] MEDS: HYDROmorphONE 0.5 MG/0.5 ML SYG IV ×5 (01:10→23:05)
[2019-06-23] MEDS: ACCU-CHEK XX (01:10)
[2019-06-23] MEDS: INSULIN ASPART [NOVOLOG] 3 ML PEN SC ×8 (07:00→20:58)
[2019-06-23 07:06] LABS: VANCOMYCIN,TROUGH 16.8 ug/ml (10.0-20.0)
[2019-06-23] MEDS: VANCOMYCIN 1.25 GM/NS 250 ML 250 ML IVPB (07:52)
[2019-06-23] MEDS: DIPHENHYDRAMINE 25 MG CAP PO ×2 (07:52→23:10)
[2019-06-23] MEDS: DOCUSATE SODIUM 100 MG CAP PO ×2 (08:58→20:58)
[2019-06-23] MEDS: ENOXAPARIN 30 MG/0.3 ML SYG SC (09:01)
[2019-06-23] MEDS: VANCOMYCIN 1 GM 250 ML IVPB ×2 (16:24→23:11)
[2019-06-23] MEDS: INSULIN GLARGINE [LANTus] (100 UNITS/ML) SYG SC (21:04)
[2019-06-23] MEDS: NPH, HUMAN INSULIN ISOPHANE 3ML VIAL SC (22:48)
[2019-06-24] MEDS: ACCU-CHEK XX (02:00)
[2019-06-24] MEDS: HYDROmorphONE 0.5 MG/0.5 ML SYG IV ×5 (07:23→22:32)
[2019-06-24] MEDS: INSULIN ASPART [NOVOLOG] 3 ML PEN SC ×7 (08:58→21:00)
[2019-06-24] MEDS: DIPHENHYDRAMINE 25 MG CAP PO (08:59)
[2019-06-24] MEDS: VANCOMYCIN 1 GM 250 ML IVPB ×2 (08:59→16:03)
[2019-06-24] MEDS: DOCUSATE SODIUM 100 MG CAP PO ×2 (08:59→21:11)
[2019-06-24] MEDS: ENOXAPARIN 30 MG/0.3 ML SYG SC (09:01)
[2019-06-24 10:17] LABS: GLUCOSE 165 mg/dl (70-220)
[2019-06-24] MEDS: TRIMETHOPRIM/SULFAMETHOX (DS) TAB PO (21:11)
[2019-06-24] MEDS: INSULIN GLARGINE [LANTus] (100 UNITS/ML) SYG SC (21:14)
[2019-06-25] MEDS: ACCU-CHEK XX (01:31)
[2019-06-25] MEDS: HYDROmorphONE 0.5 MG/0.5 ML SYG IV ×5 (03:15→21:26)
[2019-06-25] MEDS ORDERED: ALTEPLASE (CATHFLO) 2 MG INJ CATHETER (05:30)
[2019-06-25 06:09] LABS: ADD MAN DIFF? NO
[2019-06-25 06:15] LABS: WHITE BLOOD COUNT 4.8 10^3/ul (4.8-10.8)
[2019-06-25 06:15] LABS: BASOPHIL # 0.1 10^3/ul (0.0-0.1); BASOPHILS % 1.5 % (0.0-2.0); EOSINOPHILS # 0.3 10^3/ul (0.0-0.5); EOSINOPHILS % 6.7 % (0.0-7.0); HEMATOCRIT 40.9 % (42.0-52.0); HEMOGLOBIN 12.9 g/dl (14.0-18.0); LYMPHOCYTES # 1.8 10^3/ul (0.8-2.9); LYMPHOCYTES % 38.1 % (15.0-51.0); MEAN CORPUSCULAR HEMOGLOBIN 26.5 pg (29.0-33.0); MEAN CORPUSCULAR HGB CONC 31.5 g/dl (32.0-37.0); MEAN PLATELET VOLUME 9.4 fl (7.4-10.4); MONOCYTE # 0.4 10^3/ul (0.3-0.9); MONOCYTES % 7.8 % (0.0-11.0); NEUTROPHIL # 2.2 10^3/ul (1.6-7.5); NEUTROPHILS % 45.7 % (39.0-77.0); PLATELET COUNT 371 10^3/UL (140-415); RED BLOOD COUNT 4.87 10^6/ul (4.70-6.10)
[2019-06-25 06:48] LABS: ANION GAP 7 (5-13); BLOOD UREA NITROGEN 19 mg/dl (7-20); CALCIUM 9.2 mg/dl (8.4-10.2); CARBON DIOXIDE 29 mmol/L (21-31); CHLORIDE 97 mmol/L (97-110); CREATININE 0.78 mg/dl (0.61-1.24); Estimated GFR > 60 mL/min (>60); GLUCOSE 386 mg/dl (70-220); POTASSIUM 4.5 mmol/L (3.5-5.1); SODIUM 133 mmol/L (135-144)
[2019-06-25 07:07] LABS: CREATININE 0.75 mg/dl (0.61-1.24)
[2019-06-25 07:07] LABS: BLOOD UREA NITROGEN 19 mg/dl (7-20)
[2019-06-25] MEDS: INSULIN ASPART [NOVOLOG] 3 ML PEN SC ×7 (08:09→21:23)
[2019-06-25] MEDS: ENOXAPARIN 30 MG/0.3 ML SYG SC (08:10)
[2019-06-25] MEDS: DOCUSATE SODIUM 100 MG CAP PO ×2 (08:10→20:36)
[2019-06-25] MEDS: TRIMETHOPRIM/SULFAMETHOX (DS) TAB PO ×2 (08:10→20:36)
[2019-06-25] MEDS: INSULIN GLARGINE [LANTus] (100 UNITS/ML) SYG SC (21:24)
[2019-06-26] MEDS: ACCU-CHEK XX (01:11)
[2019-06-26] MEDS: HYDROmorphONE 0.5 MG/0.5 ML SYG IV ×3 (04:06→13:34)
[2019-06-26] MEDS: INSULIN ASPART [NOVOLOG] 3 ML PEN SC ×4 (08:11→12:17)
[2019-06-26] MEDS: ENOXAPARIN 30 MG/0.3 ML SYG SC (08:12)
[2019-06-26] MEDS: DOCUSATE SODIUM 100 MG CAP PO (08:12)
[2019-06-26] MEDS: TRIMETHOPRIM/SULFAMETHOX (DS) TAB PO (08:12)
== END 2019-06-26 15:50 | DRG 623 ==
LOC: E/R 03:49 → 2NE 05:18
PROC: 0JBQ0ZZ Excision of Right Foot Subcutaneous Tissue and Fascia, Open Approach (ICD-10-PCS; principal; 2019-06-19 17:51)
PROC: 0JUQ0KZ Supplement of Right Foot Subcutaneous Tissue and Fascia with Nonautologous Tissue Substitute, Open Approach (ICD-10-PCS; 2019-06-19 17:51)
PROC: 02HV33Z Insertion of Infusion Device into Superior Vena Cava, Percutaneous Approach (ICD-10-PCS; 2019-06-19 17:51)
PROC: B548ZZA Ultrasonography of Superior Vena Cava, Guidance (ICD-10-PCS; 2019-06-19 17:51)
DX: E10.621 Type 1 diabetes mellitus with foot ulcer (principal); L03.115 Cellulitis of right lower limb; L97.414 Non-pressure chronic ulcer of right heel and midfoot with necrosis of bone; M86.671 Other chronic osteomyelitis, right ankle and foot; E10.40 Type 1 diabetes mellitus with diabetic neuropathy, unspecified; E10.51 Type 1 diabetes mellitus with diabetic peripheral angiopathy without gangrene; F17.200 Nicotine dependence, unspecified, uncomplicated; B95.61 Methicillin susceptible Staphylococcus aureus infection as the cause of diseases classified elsewhere; D47.3 Essential (hemorrhagic) thrombocythemia; Z91.19 Patient's noncompliance with other medical treatment and regimen; Z79.4 Long term (current) use of insulin
CPT/HCPCS: 36415; 73620; 80048; 80202; 82565; 82947; 82962; 83605; 84145; 84520; 85025; 85610; 85651; 85730; 86140; 87040-91; 87070; 87075; 87081; 93005; 96374; 96375; 97162; 99285-25